=== PATIENT | male | born 1965 | race Caucasian/White ===

== ENCOUNTER 2017-04-25 21:13 | Inpatient (IN) | payer MEDICAID ==
[2017-04-25] MEDS ORDERED: HYDROmorphone 1 MG/ML Syringe IVPUSH ONE (21:58)
[2017-04-25] MEDS ORDERED: Sodium Chloride 0.9% 10 ML Syringe FLUSH PRN (21:58)
[2017-04-25] MEDS ORDERED: Ondansetron 4 MG/2 ML SDV IVPUSH ONE (21:58)
[2017-04-25] MEDS ORDERED: Lactated Ringers 1,000 ML IV SCH (22:00)
--- NOTE | 2017-04-25 22:02 | EDM.PDOC ---
ED HPI GENERAL MEDICAL PROBLEM - General Chief Complaint: Abdominal Pain Stated Complaint: ILLNESS FROM [facility] Time Seen by Provider: 04/25/17 21:42 Source of Information: Reports: Patient, RN Notes Reviewed History Limitations: Reports: No Limitations - History of Present Illness INITIAL COMMENTS - FREE TEXT/NARRATIVE: 52-year-old gentleman presents to emergency department day complaint of abdominal pain, he has a known history of pancreatitis recently underwent CAT scan the of this month which showed mild pancreatitis he has been trying to control his pain with ibuprofen and he is still eating, today the pain got significantly worse he is currently at [place] going through alcohol treatment program Lower Abdomen Pain Score (Numeric/FACES): 7 - Related Data Allergies Allergy/AdvReac Type Severity Reaction Status Date / Time No Known Allergies Allergy Verified 04/25/17 21:25 Home Meds: Home Meds Fluticasone Propionate [Flonase] 2 spray TOP DAILY 04/25/17 [History] Ibuprofen [Ibuprofen] 1 tab PO TID 04/25/17 [History] busPIRone HCl [Buspirone HCl] 1 tab PO BID 04/25/17 [History] Past Medical History HEENT History: Reports: Impaired Vision Gastrointestinal History: Reports: Other (See Below) Other Gastrointestinal History: pancreatitis Musculoskeletal History: Reports: Fracture Neurological History: Reports: Neuropathy, Peripheral Psychiatric History: Reports: Addiction - Infectious Disease History Infectious Disease History: Reports: Chicken Pox Social & Family History - Tobacco Use Used Tobacco, but Quit: No Tobacco Use Comment: Chew Second Hand Smoke Exposure: No - Caffeine Use Caffeine Use: Reports: Coffee, Soda, Tea - Alcohol Use Days Per Week of Alcohol Use: 7 Number of Drinks Per Day: 8 Total Drinks Per Week: 56 Date of Last Drink: 03/29/17 Time of Last Drink: 20:00 - Recreational Drug Use Recreational Drug Use: No ED ROS GENERAL - Review of Systems Review Of Systems: See Below Constitutional: Denies: Fever, Chills HEENT: Reports: No Symptoms Respiratory: Reports: Shortness of Breath Cardiovascular: Reports: No Symptoms GI/Abdominal: Reports: Abdominal Pain, Flatus, Nausea. Denies: Vomiting : Reports: No Symptoms Musculoskeletal: Reports: Arm Pain Skin: Reports: No Symptoms Neurological: Reports: No Symptoms ED EXAM, GI/ABD - Physical Exam Exam: See Below Exam Limited By: No Limitations General Appearance: Alert, Moderate Distress Neck: Normal Inspection, Supple, Non-Tender, Full Range of Motion Respiratory/Chest: No Respiratory Distress, Lungs Clear, Normal Breath Sounds, No Accessory Muscle Use Cardiovascular: Regular Rate, Rhythm, No Murmur GI/Abdominal Exam: Soft, Tender (Left upper quadrant) Back Exam: Normal Inspection, Full Range of Motion. No: CVA Tenderness (R), CVA Tenderness (L) Extremities: Normal Inspection Course - Vital Signs Last Recorded V/S: Last Vital Signs Temp 98.3 F 04/25/17 21:24 Pulse 97 04/25/17 21:24 Resp 20 04/25/17 21:24 BP 148/99 H 04/25/17 21:24 Pulse Ox 98 04/25/17 21:24 - Orders/Labs/Meds Orders: Active Orders 24 hr Category Date Time Status Peripheral IV Care [RC] . DIRECTED Care 04/25/17 21:58 Active UA W/MICROSCOPIC [URIN] Urgent Lab 04/25/17 21:58 Uncollected Lactated Ringers [Ringers, Lactated] 1,000 ml Med 04/25/17 22:00 Active IV ASDIRECTED Sodium Chloride 0.9% [Saline Flush] Med 04/25/17 21:58 Active 10 ml FLUSH ASDIRECTED PRN ED Antiemetic Medication Reflex [OM.PC] Click to Edit Oth 04/25/17 21:58 Ordered ED Pain Medications Reflex [OM.PC] Click to Edit Oth 04/25/17 21:58 Ordered Peripheral IV Insertion Adult [OM.PC] Urgent Oth 04/25/17 21:58 Ordered Medication Orders Lactated Ringer's (Ringers, Lactated) 1,000 mls @ 999 mls/hr IV ASDIRECTED [facility] Last Admin: 04/25/17 22:18 Dose: 999 mls/hr Sodium Chloride (Saline Flush) 10 ml FLUSH ASDIRECTED PRN PRN Reason: Keep Vein Open Labs: Laboratory Tests 04/25/17 04/25/17 04/25/17 Range/Units 22:09 22:09 22:09 WBC 6.5 (4.5-11.0) K/uL RBC 3.66 L (4.30-5.90) M/uL Hgb 12.0 (12.0-15.0) g/dL Hct 35.8 L (40.0-54.0) % MCV 98 (80-98) fL MCH 33 H (27-31) pg MCHC 34 (32-36) % Plt Count 297 (150-400) K/uL Neut % (Auto) 52 (36-66) % Lymph % (Auto) 27 (24-44) % [place] % (Auto) 14 H (2-6) % Eos % (Auto) 6 H (2-4) % Baso % (Auto) 0 (0-1) % Sodium 142 (140-148) mmol/L Potassium 3.7 (3.6-5.2) mmol/L Chloride 107 (100-108) mmol/L Carbon Dioxide 27 (21-32) mmol/L Anion Gap 8.3 (5.0-14.0) mmol/L BUN 11 (7-18) mg/dL Creatinine 0.8 (0.8-1.3) mg/dL Est Cr Clr Drug Dosing 108.36 mL/min Estimated GFR (MDRD) > 60 (>60) Glucose 100 (74-106) mg/dL Lactic Acid 0.9 (0.4-2.0) mmol/L Calcium 9.0 (8.5-10.1) mg/dL Total Bilirubin 0.2 (0.2-1.0) mg/dL AST 13 L (15-37) U/L ALT 23 (12-78) U/L Alkaline Phosphatase 65 (46-116) U/L Troponin I < 0.017 (0.000-0.056) ng/mL Total Protein 6.9 (6.4-8.2) g/dL Albumin 3.6 (3.4-5.0) g/dL Globulin 3.3 (2.3-3.5) g/dL Albumin/Globulin Ratio 1.1 L (1.2-2.2) Lipase 443 H (73-393) U/L Meds: Medications Generic Name Dose Route Start Last Admin Trade Name Freq PRN Reason Stop Dose Admin Lactated Ringer's 1,000 mls @ 999 mls/hr 04/25/17 22:00 04/25/17 22:18 Ringers, Lactated IV 999 mls/hr ASDIRECTED RAFAT Administration Sodium Chloride 10 ml 04/25/17 21:58 Saline Flush FLUSH ASDIRECTED PRN Keep Vein Open Discontinued Medications Generic Name Dose Route Start Last Admin Trade Name Davian PRN Reason Stop Dose Admin Fentanyl 100 mcg 04/25/17 22:51 Sublimaze IVPUSH 04/25/17 22:52 ONETIME ONE Hydromorphone HCl 1 mg 04/25/17 21:58 04/25/17 22:21 Dilaudid IVPUSH 04/25/17 21:59 1 mg .ONETIME ONE Administration Ondansetron HCl 4 mg 04/25/17 21:58 04/25/17 22:19 Zofran IVPUSH 04/25/17 21:59 4 mg ONETIME ONE Administration Departure - Departure Time of Disposition: 23:09 Disposition: Admitted As Inpatient 64 Condition: Fair Clinical Impression: Pancreatitis Qualifiers: Chronicity: acute Pancreatitis type: alcohol induced Acute pancreatitis complication: no infection or necrosis Qualified Code(s): K85.20 - Alcohol induced acute pancreatitis without necrosis or infection - Discharge Information Referrals: PCP,None [Primary Care Provider] - Forms: ED Department Discharge - My Orders Last 24 Hours: My Active Orders 04/25/17 21:58 Peripheral IV Care [RC] . DIRECTED UA W/MICROSCOPIC [URIN] Urgent Sodium Chloride 0.9% [Saline Flush] 10 ml FLUSH ASDIRECTED PRN ED Antiemetic Medication Reflex [OM.PC] Click to Edit ED Pain Medications Reflex [OM.PC] Click to Edit Peripheral IV Insertion Adult [OM.PC] Urgent 04/25/17 22:00 Lactated Ringers [Ringers, Lactated] 1,000 ml IV ASDIRECTED - Assessment/Plan Last 24 Hours: My Active Orders 04/25/17 21:58 Peripheral IV Care [RC] . DIRECTED UA W/MICROSCOPIC [URIN] Urgent Sodium Chloride 0.9% [Saline Flush] 10 ml FLUSH ASDIRECTED PRN ED Antiemetic Medication Reflex [OM.PC] Click to Edit ED Pain Medications Reflex [OM.PC] Click to Edit Peripheral IV Insertion Adult [OM.PC] Urgent 04/25/17 22:00 Lactated Ringers [Ringers, Lactated] 1,000 ml IV ASDIRECTED Plan: Assessment Acuity = acute Site and laterality = pancreatitis complicated patient with known history of alcohol abuse and dependence Etiology = probably related to alcohol Manifestations = abdominal pain, nausea Location of injury = Home Lab values = CBC, CMP unremarkable lipase mildly elevated at 443 CT scan from the of this month shows mild pancreatitis Plan Called discussed case Dr. Etsrella he agreed to come and evaluate the patient in the hospital, plan for admission pain control fluids nothing by mouth Patient was in agreement with the plan all questions were answered, they were instructed to return to the emergency department or call for worsening symptoms. This note was dictated using [employer] voice recognition software please call with any questions.
[2017-04-25] MEDS ORDERED: fentaNYL 100 MCG/2 ML SDV IVPUSH ONE (22:51)
[2017-04-25] MEDS ORDERED: HYDROmorphone/Normal Saline 15 MG/30 ML PCA IV SCH (23:30)
[2017-04-25] MEDS: Lactated Ringers 500 ML IV SCH (23:51)
[2017-04-26] MEDS: LORazepam 2 MG/ML MDV IV PRN ×2 (03:03→23:24)
[2017-04-26] MEDS: Lactated Ringers 500 ML IV SCH (06:16)
[2017-04-26] MEDS ORDERED: Naloxone 0.4 MG/ML SDV IV PRN (07:02)
[2017-04-26] MEDS ORDERED: Fluticasone Propionate Nasal Spray 16 GM Bottle NAS SCH (09:00)
--- NOTE | 2017-04-26 09:14 | PCM.HP ---
H&P History of Present Illness - General Date of Service: 04/25/17 Admit Problem/Dx: Admission Diagnosis/Problem Admission Diagnosis/Problem Pancreatitis Source of Information: Patient, EMS History Limitations: Reports: No Limitations - History of Present Illness Worsens with: Reports: Eating Associated Symptoms: Reports: Nausea/Vomiting Lower Abdomen Pain Score (Numeric/FACES): 7 - Related Data Allergies/Adverse Reactions: Allergies Allergy/AdvReac Type Severity Reaction Status Date / Time No Known Allergies Allergy Verified 04/25/17 21:25 Home Medications: Home Meds Fluticasone Propionate [Flonase] 2 spray TOP DAILY 04/25/17 [History] Ibuprofen [Ibuprofen] 1 tab PO TID 04/25/17 [History] busPIRone HCl [Buspirone HCl] 1 tab PO BID 04/25/17 [History] Past Medical History HEENT History: Reports: Impaired Vision Gastrointestinal History: Reports: Other (See Below) Other Gastrointestinal History: pancreatitis Musculoskeletal History: Reports: Fracture Neurological History: Reports: Neuropathy, Peripheral Psychiatric History: Reports: Addiction - Infectious Disease History Infectious Disease History: Reports: Chicken Pox - Past Surgical History Musculoskeletal Surgical History: Reports: Arthroscopic Knee Social & Family History - Family History Family Medical History: Noncontributory - Tobacco Use Used Tobacco, but Quit: No Tobacco Use Comment: Chew Second Hand Smoke Exposure: No - Caffeine Use Caffeine Use: Reports: None - Alcohol Use Days Per Week of Alcohol Use: 7 Number of Drinks Per Day: 8 Total Drinks Per Week: 56 Date of Last Drink: 03/28/17 Time of Last Drink: 20:00 - Recreational Drug Use Recreational Drug Use: No H&P Review of Systems - Review of Systems: Review Of Systems: See Below General: Reports: Weakness HEENT: Reports: No Symptoms Pulmonary: Reports: No Symptoms Cardiovascular: Reports: No Symptoms Gastrointestinal: Reports: Abdominal Pain, Flatus Genitourinary: Reports: No Symptoms Musculoskeletal: Reports: No Symptoms Skin: Reports: No Symptoms Psychiatric: Reports: No Symptoms Neurological: Reports: No Symptoms Exam - Exam Exam: See Below - Vital Signs Vital Signs: Last Vital Signs Temp 97.6 F 04/26/17 08:00 Pulse 72 04/26/17 08:00 Resp 18 04/26/17 08:00 BP 134/90 04/26/17 08:00 Pulse Ox 97 04/26/17 04:00 Weight: 159 lb 11.2 oz - Exam General: Alert, Oriented, 4 HEENT: PERRLA, Hearing Intact, Mucosa Moist & [place], Nares Patent, Normal Nasal Septum, Posterior Pharynx Clear, Conjunctiva Clear, EOMI, EACs Clear, TMs Clear Neck: Supple, Trachea Midline, 2 Lungs: Clear to Auscultation, Normal Respiratory Effort Cardiovascular: Regular Rate, Regular Rhythm GI/Abdominal Exam: Guarding, Tender Extremities: Normal Inspection, Normal Range of Motion, Non-Tender, No Pedal Edema, Normal Capillary Refill Peripheral Pulses: 1+: Radial (L), Radial (R) Skin: Warm Neurological: Cranial Nerves Intact, Reflexes Equal Bilateral Neuro Extensive - Motor, Sensory, Reflexes: CN II-XII Intact, Normal Gait, Normal Reflexes DTR: 1+: Bicep (L), Bicep (R) Psychiatric: Alert, Normal Affect, Normal Mood - Patient Data Lab Results Last 24 hrs: Laboratory Results - last 24 hr 04/25/17 04/26/17 04/26/17 Range/Units 23:20 05:11 05:11 WBC 6.6 (4.5-11.0) K/uL RBC 3.24 L (4.30-5.90) M/uL Hgb 10.8 L (12.0-15.0) g/dL Hct 32.1 L (40.0-54.0) % MCV 99 H (80-98) fL MCH 33 H (27-31) pg MCHC 34 (32-36) % Plt Count 267 (150-400) K/uL Neut % (Auto) 46 (36-66) % Lymph % (Auto) 28 (24-44) % [place] % (Auto) 15 H (2-6) % Eos % (Auto) 11 H (2-4) % Baso % (Auto) 0 (0-1) % Sodium 144 (140-148) mmol/L Potassium 3.7 (3.6-5.2) mmol/L Chloride 107 (100-108) mmol/L Carbon Dioxide 28 (21-32) mmol/L Anion Gap 9.1 (5.0-14.0) mmol/L BUN 9 (7-18) mg/dL Creatinine 0.7 L (0.8-1.3) mg/dL Est Cr Clr Drug Dosing 123.61 mL/min Estimated GFR (MDRD) > 60 (>60) Glucose 98 (74-106) mg/dL Calcium 8.5 (8.5-10.1) mg/dL Total Bilirubin 0.3 (0.2-1.0) mg/dL AST 14 L (15-37) U/L ALT 22 (12-78) U/L Alkaline Phosphatase 50 (46-116) U/L Total Protein 6.0 L (6.4-8.2) g/dL Albumin 3.1 L (3.4-5.0) g/dL Globulin 2.9 (2.3-3.5) g/dL Albumin/Globulin Ratio 1.1 L (1.2-2.2) Lipase 405 H (73-393) U/L Urine Color Yellow Urine Appearance Clear Urine pH 6.5 (4.5-8.0) Ur Specific [place] 1.010 (1.008-1.030) Urine Protein Negative (NEGATIVE) mg/dL Urine Glucose (UA) Normal (NEGATIVE) mg/dL Urine Ketones Negative (NEGATIVE) mg/dL Urine Occult Blood Negative (NEGATIVE) Urine Nitrite Negative (NEGAITVE) Urine Bilirubin Negative (NEGATIVE) Urine Urobilinogen Normal (NORMAL) mg/dL Ur Leukocyte Esterase Negative (NEGATIVE) Urine RBC Not seen (0-5) Urine WBC Not seen (0-5) Ur Epithelial Cells Not seen Amorphous Sediment Not seen Urine Bacteria Not seen Urine Mucus Rare Result Diagrams: 04/26/17 05:11 04/26/17 05:11 *Q Meaningful Use (ADM) - VTE *Q VTE Criteria *Q: - Stroke *Q Stroke Criteria *Q: - AMI *Q AMI Criteria *Q: Problem List Initiated/Reviewed/Updated: Yes Orders Last 24hrs: Active Orders 24 hr Category Date Time Status Fluticasone Propionate [Flonase] Med 04/26/17 09:00 Active 0 gm NASBOTH DAILY HYDROmorphone/Normal Saline [Dilaudid FISH HATCHERY SUPERINTENDENT 15 MG in NS Med 04/26/17 07:01 Active 30 ML] 0 mg IV ASDIRECTED PRN Naloxone [Narcan] Med 04/26/17 07:02 Active 0.1 mg IV ASDIRECTED PRN busPIRone [Buspar] Med 04/26/17 09:00 Active 15 mg PO BID Medication Orders Buspirone HCl (Buspar) 15 mg PO BID RAFAT Fluticasone Propionate (Flonase) 0 gm NASBOTH DAILY RAFAT Hydromorphone HCl (Dilaudid Sales And Merchandising Associate 15 Mg In Ns 30 Ml) 0 mg IV ASDIRECTED PRN; Protocol PRN Reason: Pain Lorazepam (Ativan) 1 mg IV Q6H PRN PRN Reason: Nausea/Vomiting Last Admin: 04/26/17 03:03 Dose: 1 mg Naloxone HCl (Narcan) 0.1 mg IV ASDIRECTED PRN PRN Reason: decreased respiratory rate Sodium Chloride (Saline Flush) 10 ml FLUSH ASDIRECTED PRN PRN Reason: Keep Vein Open Assessment/Plan Comment:: ASSESSMENT/PLAN: #1. Pancreatitis secondary to alcohol consumption. He had a CT of the abd after I had seen him in the office which showed pancreatitis #2. Alcoholism: He is in treatment court ordered. #3. Peripheral neuritis. Will continue with Lyrica. #4. Anxiety: Continue with Buspar.
--- NOTE | 2017-04-26 09:14 | PCM.PN ---
- General Info Date of Service: 04/26/17 Subjective Update: He continues to havae abd pain with minimual improvement from last night. His pain level is a 7/10 dull in character. - Review of Systems General: Reports: Weakness HEENT: Reports: No Symptoms Pulmonary: Reports: No Symptoms Cardiovascular: Reports: No Symptoms Gastrointestinal: Reports: Abdominal Pain, Nausea Genitourinary: Reports: No Symptoms Musculoskeletal: Reports: No Symptoms Neurological: Reports: No Symptoms Psychiatric: Reports: No Symptoms - Patient Data Vitals - Most Recent: Last Vital Signs Temp 97.6 F 04/26/17 08:00 Pulse 72 04/26/17 08:00 Resp 18 04/26/17 08:00 BP 134/90 04/26/17 08:00 Pulse Ox 97 04/26/17 04:00 Weight - Most Recent: 159 lb 11.2 oz I&O - Last 24 Hours: Intake & Output 04/25/17 04/26/17 04/26/17 22:59 06:59 14:59 Intake Total 977 Balance 977 Lab Results Last 24 Hours: Laboratory Results - last 24 hr 04/25/17 04/26/17 04/26/17 Range/Units 23:20 05:11 05:11 WBC 6.6 (4.5-11.0) K/uL RBC 3.24 L (4.30-5.90) M/uL Hgb 10.8 L (12.0-15.0) g/dL Hct 32.1 L (40.0-54.0) % MCV 99 H (80-98) fL MCH 33 H (27-31) pg MCHC 34 (32-36) % Plt Count 267 (150-400) K/uL Neut % (Auto) 46 (36-66) % Lymph % (Auto) 28 (24-44) % [place] % (Auto) 15 H (2-6) % Eos % (Auto) 11 H (2-4) % Baso % (Auto) 0 (0-1) % Sodium 144 (140-148) mmol/L Potassium 3.7 (3.6-5.2) mmol/L Chloride 107 (100-108) mmol/L Carbon Dioxide 28 (21-32) mmol/L Anion Gap 9.1 (5.0-14.0) mmol/L BUN 9 (7-18) mg/dL Creatinine 0.7 L (0.8-1.3) mg/dL Est Cr Clr Drug Dosing 123.61 mL/min Estimated GFR (MDRD) > 60 (>60) Glucose 98 (74-106) mg/dL Calcium 8.5 (8.5-10.1) mg/dL Total Bilirubin 0.3 (0.2-1.0) mg/dL AST 14 L (15-37) U/L ALT 22 (12-78) U/L Alkaline Phosphatase 50 (46-116) U/L Total Protein 6.0 L (6.4-8.2) g/dL Albumin 3.1 L (3.4-5.0) g/dL Globulin 2.9 (2.3-3.5) g/dL Albumin/Globulin Ratio 1.1 L (1.2-2.2) Lipase 405 H (73-393) U/L Urine Color Yellow Urine Appearance Clear Urine pH 6.5 (4.5-8.0) Ur Specific [place] 1.010 (1.008-1.030) Urine Protein Negative (NEGATIVE) mg/dL Urine Glucose (UA) Normal (NEGATIVE) mg/dL Urine Ketones Negative (NEGATIVE) mg/dL Urine Occult Blood Negative (NEGATIVE) Urine Nitrite Negative (NEGAITVE) Urine Bilirubin Negative (NEGATIVE) Urine Urobilinogen Normal (NORMAL) mg/dL Ur Leukocyte Esterase Negative (NEGATIVE) Urine RBC Not seen (0-5) Urine WBC Not seen (0-5) Ur Epithelial Cells Not seen Amorphous Sediment Not seen Urine Bacteria Not seen Urine Mucus Rare Med Orders - Current: Current Medications Buspirone HCl (Buspar) 15 mg PO BID RAFAT Fluticasone Propionate (Flonase) 0 gm NASBOTH DAILY RAFAT Hydromorphone HCl (Dilaudid Oil Furnace Installer 15 Mg In Ns 30 Ml) 0 mg IV ASDIRECTED PRN; Protocol PRN Reason: Pain Lorazepam (Ativan) 1 mg IV Q6H PRN PRN Reason: Nausea/Vomiting Last Admin: 04/26/17 03:03 Dose: 1 mg Naloxone HCl (Narcan) 0.1 mg IV ASDIRECTED PRN PRN Reason: decreased respiratory rate Sodium Chloride (Saline Flush) 10 ml FLUSH ASDIRECTED PRN PRN Reason: Keep Vein Open Discontinued Medications Fentanyl (Sublimaze) 100 mcg IVPUSH ONETIME ONE Stop: 04/25/17 22:52 Last Admin: 04/25/17 23:12 Dose: 100 mcg Hydromorphone HCl (Dilaudid) 1 mg IVPUSH .ONETIME ONE Stop: 04/25/17 21:59 Last Admin: 04/25/17 22:21 Dose: 1 mg Hydromorphone HCl (Dilaudid Oil Furnace Installer 15 Mg In Ns 30 Ml) 15 mg IV ASDIRECTED [facility] PRN Reason: Protocol Last Admin: 04/25/17 23:55 Dose: 15 mg Lactated Ringer's (Ringers, Lactated) 1,000 mls @ 999 mls/hr IV ASDIRECTED [facility] Last Admin: 04/25/17 22:18 Dose: 999 mls/hr Lactated Ringer's (Ringers, Lactated) 500 mls @ 150 mls/hr IV .BOLUS [facility] Last Admin: 04/26/17 06:16 Dose: 150 mls/hr Ondansetron HCl (Zofran) 4 mg IVPUSH ONETIME ONE Stop: 04/25/17 21:59 Last Admin: 04/25/17 22:19 Dose: 4 mg - Exam General: Alert, Oriented Neck: Supple Lungs: Clear to Auscultation, Normal Respiratory Effort Cardiovascular: Regular Rate, Regular Rhythm Back Exam: Normal Inspection, Full Range of Motion Extremities: Normal Inspection, Normal Range of Motion, Non-Tender, No Pedal Edema, Normal Capillary Refill Skin: Warm, Dry, Intact Psy/Mental Status: Alert, Normal Mood - Problem List Review Problem List Initiated/Reviewed/Updated: Yes - Plan Plan:: Assessment/plan: Pancreatitis Will continue with NPO. Will repeat the Lipase in 2 days as pain is continuing. #2. Neuritis: Have restarted Lyrica
[2017-04-26] MEDS: busPIRone 5 MG Tab PO SCH ×2 (09:38→20:13)
[2017-04-26] MEDS: Fluticasone Propionate Nasal Spray 16 GM Bottle NASBOTH SCH (09:39)
[2017-04-26] MEDS: Pregabalin 75 MG Cap PO SCH ×2 (09:42→20:13)
[2017-04-26] MEDS: Acetaminophen 325 MG Tab PO PRN (20:13)
[2017-04-26] MEDS: Ibuprofen 800 MG Tab PO PRN (23:24)
[2017-04-26] MEDS: Sodium Chloride 0.9% 1,000 ML IV SCH (23:32)
[2017-04-27] MEDS: Acetaminophen 325 MG Tab PO PRN ×3 (06:19→20:08)
--- NOTE | 2017-04-27 07:27 | PCM.PN ---
- General Info Date of Service: 04/27/17 Functional Status: Reports: Pain Controlled - Review of Systems General: Reports: No Symptoms HEENT: Reports: No Symptoms Pulmonary: Reports: No Symptoms Cardiovascular: Reports: No Symptoms Gastrointestinal: Reports: Abdominal Pain Genitourinary: Reports: No Symptoms Musculoskeletal: Reports: No Symptoms Neurological: Reports: No Symptoms Psychiatric: Reports: No Symptoms - Patient Data Vitals - Most Recent: Last Vital Signs Temp 97.5 F 04/26/17 23:00 Pulse 80 04/26/17 23:00 Resp 14 04/26/17 23:00 BP 102/80 04/26/17 23:00 Pulse Ox 95 04/26/17 23:00 Weight - Most Recent: 159 lb 11.2 oz I&O - Last 24 Hours: Intake & Output 04/26/17 04/27/17 04/27/17 22:59 06:59 14:59 Intake Total 1056 859 Balance 1056 859 Med Orders - Current: Current Medications Acetaminophen (Tylenol) 650 mg PO Q6H PRN PRN Reason: Pain Last Admin: 04/27/17 06:19 Dose: 650 mg Buspirone HCl (Buspar) 15 mg PO BID [facility] Last Admin: 04/26/17 20:13 Dose: 15 mg Fluticasone Propionate (Flonase) 0 gm NASBOTH DAILY [facility] Last Admin: 04/26/17 09:39 Dose: 2 spray Hydromorphone HCl (Dilaudid Pipe Testing Technician 15 Mg In Ns 30 Ml) 0 mg IV ASDIRECTED PRN; Protocol PRN Reason: Pain Sodium Chloride (Normal Saline) 1,000 mls @ 75 mls/hr IV ASDIRECTED [facility] Last Admin: 04/26/17 23:32 Dose: 75 mls/hr Ibuprofen (Motrin) 800 mg PO Q8H PRN PRN Reason: Pain Last Admin: 04/26/17 23:24 Dose: 800 mg Lorazepam (Ativan) 1 mg IV Q6H PRN PRN Reason: Nausea/Vomiting Last Admin: 04/26/17 23:24 Dose: 1 mg Naloxone HCl (Narcan) 0.1 mg IV ASDIRECTED PRN PRN Reason: decreased respiratory rate Pregabalin (Lyrica) 75 mg PO BID [facility] Last Admin: 04/26/17 20:13 Dose: 75 mg Sodium Chloride (Saline Flush) 10 ml FLUSH ASDIRECTED PRN PRN Reason: Keep Vein Open Discontinued Medications Fentanyl (Sublimaze) 100 mcg IVPUSH ONETIME ONE Stop: 04/25/17 22:52 Last Admin: 04/25/17 23:12 Dose: 100 mcg Hydromorphone HCl (Dilaudid) 1 mg IVPUSH .ONETIME ONE Stop: 04/25/17 21:59 Last Admin: 04/25/17 22:21 Dose: 1 mg Hydromorphone HCl (Dilaudid Pipe Testing Technician 15 Mg In Ns 30 Ml) 15 mg IV ASDIRECTED RAFAT PRN Reason: Protocol Last Admin: 04/25/17 23:55 Dose: 15 mg Lactated Ringer's (Ringers, Lactated) 1,000 mls @ 999 mls/hr IV ASDIRECTED [facility] Last Admin: 04/25/17 22:18 Dose: 999 mls/hr Lactated Ringer's (Ringers, Lactated) 500 mls @ 150 mls/hr IV .BOLUS [facility] Last Admin: 04/26/17 06:16 Dose: 150 mls/hr Ondansetron HCl (Zofran) 4 mg IVPUSH ONETIME ONE Stop: 04/25/17 21:59 Last Admin: 04/25/17 22:19 Dose: 4 mg - Exam General: Alert, Oriented HEENT: Pupils Equal Neck: Supple Lungs: Clear to Auscultation, Normal Respiratory Effort Cardiovascular: Regular Rate, Regular Rhythm GI/Abdominal Exam: Guarding, Tender Extremities: Normal Inspection, Normal Range of Motion, Non-Tender, No Pedal Edema, Normal Capillary Refill Peripheral Pulses: 1+: Radial (L), Radial (R) Skin: Warm, Dry, Intact Psy/Mental Status: Alert, Normal Affect, Normal Mood - Problem List Review Problem List Initiated/Reviewed/Updated: Yes - My Orders Last 24 Hours: My Active Orders 04/26/17 09:30 Pregabalin [Lyrica] 75 mg PO BID 04/26/17 19:46 Acetaminophen [Tylenol] 650 mg PO Q6H PRN Ibuprofen [Motrin] 800 mg PO Q8H PRN 04/26/17 20:00 Sodium Chloride 0.9% [Normal Saline] 1,000 ml IV ASDIRECTED - Plan Plan:: ASSESSMENT/PLAN: #1. Pancreatitis secondary to alcohol consumption. Will continue with NPO as he continues to have abd pain. #2. Alcoholism: He is in treatment court ordered. #3. Peripheral neuritis. Will continue with Lyrica. #4. Anxiety: Continue with Buspar.
[2017-04-27] MEDS: busPIRone 5 MG Tab PO SCH ×2 (08:20→20:08)
[2017-04-27] MEDS: Fluticasone Propionate Nasal Spray 16 GM Bottle NASBOTH SCH (08:20)
[2017-04-27] MEDS: Pregabalin 75 MG Cap PO SCH ×2 (10:19→20:08)
[2017-04-27] MEDS: Sodium Chloride 0.9% 1,000 ML IV SCH (13:07)
[2017-04-27] MEDS: Ibuprofen 800 MG Tab PO PRN (14:35)
[2017-04-27] MEDS: LORazepam 2 MG/ML MDV IV PRN (18:25)
[2017-04-27] MEDS: HYDROmorphone/Normal Saline 15 MG/30 ML PCA IV PRN (18:56)
[2017-04-28] MEDS: Sodium Chloride 0.9% 1,000 ML IV SCH ×2 (02:12→18:00)
[2017-04-28] MEDS: Acetaminophen 325 MG Tab PO PRN ×2 (04:57→18:57)
[2017-04-28] MEDS: Ibuprofen 800 MG Tab PO PRN ×3 (06:09→22:01)
[2017-04-28] MEDS: busPIRone 5 MG Tab PO SCH ×2 (09:38→21:54)
[2017-04-28] MEDS: Pregabalin 75 MG Cap PO SCH ×2 (09:39→22:00)
[2017-04-28] MEDS: Fluticasone Propionate Nasal Spray 16 GM Bottle NASBOTH SCH (09:39)
[2017-04-28] MEDS ORDERED: Bupivacaine 0.25% 10 ML SDV ONE (10:08)
[2017-04-28] MEDS ORDERED: methylPREDNISolone Acetate 80 MG/ML SDV ONE (10:08)
--- NOTE | 2017-04-28 17:19 | PCM.PN ---
- General Info Date of Service: 04/28/17 Admission Dx/Problem (Free Text): Admission Diagnosis/Problem Admission Diagnosis/Problem Pancreatitis Subjective Update: Back pain is progressive and wants relief. The abd. pain is also significant His pain in his back is a 8/10 and dull worse with movement. He wants to start eating al least try to eat. - Review of Systems General: Reports: Weakness Pulmonary: Reports: No Symptoms Cardiovascular: Reports: No Symptoms Gastrointestinal: Reports: Abdominal Pain Genitourinary: Reports: No Symptoms Musculoskeletal: Reports: Back Pain Skin: Reports: No Symptoms Psychiatric: Reports: No Symptoms - Patient Data Vitals - Most Recent: Last Vital Signs Temp 97.1 F 04/28/17 15:00 Pulse 80 04/28/17 15:00 Resp 18 04/28/17 15:00 BP 139/99 H 04/28/17 15:00 Pulse Ox 99 04/28/17 15:00 Weight - Most Recent: 159 lb 11.2 oz I&O - Last 24 Hours: Intake & Output 04/28/17 04/28/17 04/28/17 06:59 14:59 22:59 Intake Total 816 Balance 816 Lab Results Last 24 Hours: Laboratory Results - last 24 hr 04/28/17 04/28/17 04/28/17 Range/Units 05:54 05:54 15:41 WBC 5.7 (4.5-11.0) K/uL RBC 3.79 L (4.30-5.90) M/uL Hgb 12.4 (12.0-15.0) g/dL Hct 37.7 L (40.0-54.0) % MCV 100 H (80-98) fL MCH 33 H (27-31) pg MCHC 33 (32-36) % Plt Count 299 (150-400) K/uL Neut % (Auto) 48 (36-66) % Lymph % (Auto) 30 (24-44) % [place] % (Auto) 14 H (2-6) % Eos % (Auto) 7 H (2-4) % Baso % (Auto) 0 (0-1) % Sodium 142 (140-148) mmol/L Potassium 3.8 (3.6-5.2) mmol/L Chloride 104 (100-108) mmol/L Carbon Dioxide 29 (21-32) mmol/L Anion Gap 8.6 (5.0-14.0) mmol/L BUN 7 (7-18) mg/dL Creatinine 0.7 L (0.8-1.3) mg/dL Est Cr Clr Drug Dosing 123.61 mL/min Estimated GFR (MDRD) > 60 (>60) Glucose 92 (74-106) mg/dL Calcium 9.2 (8.5-10.1) mg/dL Amylase 89 (25-115) U/L Lipase 122 158 (73-393) U/L Med Orders - Current: Current Medications Acetaminophen (Tylenol) 650 mg PO Q6H PRN PRN Reason: Pain Last Admin: 04/28/17 04:57 Dose: 650 mg Buspirone HCl (Buspar) 15 mg PO BID [facility] Last Admin: 04/28/17 09:38 Dose: 15 mg Fluticasone Propionate (Flonase) 0 gm NASBOTH DAILY [facility] Last Admin: 04/28/17 09:39 Dose: 2 spray Hydromorphone HCl (Dilaudid General Service Technician 15 Mg In Ns 30 Ml) 0 mg IV ASDIRECTED PRN; Protocol PRN Reason: Pain Last Admin: 04/27/17 18:56 Dose: 15 mg Sodium Chloride (Normal Saline) 1,000 mls @ 75 mls/hr IV ASDIRECTED [facility] Last Admin: 04/28/17 02:12 Dose: 75 mls/hr Ibuprofen (Motrin) 800 mg PO Q8H PRN PRN Reason: Pain Last Admin: 04/28/17 12:20 Dose: 800 mg Lorazepam (Ativan) 1 mg IV Q6H PRN PRN Reason: Nausea/Vomiting Last Admin: 04/27/17 18:25 Dose: 1 mg Magnesium Citrate (Citrate Of Magnesia) 296 ml PO ONETIME ONE Stop: 04/28/17 17:31 Naloxone HCl (Narcan) 0.1 mg IV ASDIRECTED PRN PRN Reason: decreased respiratory rate Pregabalin (Lyrica) 150 mg PO BID [facility] Last Admin: 04/28/17 09:39 Dose: 150 mg Sodium Chloride (Saline Flush) 10 ml FLUSH ASDIRECTED PRN PRN Reason: Keep Vein Open Discontinued Medications Bupivacaine HCl (Sensorcaine-Mpf 0.25%) Confirm Administered Dose 10 ml .ROUTE .STK-MED ONE Stop: 04/28/17 10:09 Fentanyl (Sublimaze) 100 mcg IVPUSH ONETIME ONE Stop: 04/25/17 22:52 Last Admin: 04/25/17 23:12 Dose: 100 mcg Hydromorphone HCl (Dilaudid) 1 mg IVPUSH .ONETIME ONE Stop: 04/25/17 21:59 Last Admin: 04/25/17 22:21 Dose: 1 mg Hydromorphone HCl (Dilaudid General Service Technician 15 Mg In Ns 30 Ml) 15 mg IV ASDIRECTED [facility] PRN Reason: Protocol Last Admin: 04/25/17 23:55 Dose: 15 mg Lactated Ringer's (Ringers, Lactated) 1,000 mls @ 999 mls/hr IV ASDIRECTED [facility] Last Admin: 04/25/17 22:18 Dose: 999 mls/hr Lactated Ringer's (Ringers, Lactated) 500 mls @ 150 mls/hr IV .BOLUS [facility] Last Admin: 04/26/17 06:16 Dose: 150 mls/hr Methylprednisolone Acetate (Depo-Medrol) Confirm Administered Dose 80 mg .ROUTE .STK-MED ONE Stop: 04/28/17 10:09 Ondansetron HCl (Zofran) 4 mg IVPUSH ONETIME ONE Stop: 04/25/17 21:59 Last Admin: 04/25/17 22:19 Dose: 4 mg Pregabalin (Lyrica) 75 mg PO BID [facility] Last Admin: 04/27/17 10:19 Dose: 75 mg - Exam General: Alert, Oriented HEENT: Pupils Equal, Pupils Reactive, EOMI, Mucous Membr. Moist/[place] Neck: Supple Lungs: Clear to Auscultation, Normal Respiratory Effort Cardiovascular: Regular Rate, Regular Rhythm GI/Abdominal Exam: Guarding, Tender Back Exam: Paraspinal Tenderness, Vertebral Tenderness Extremities: Normal Inspection Peripheral Pulses: 1+: Radial (L), Radial (R) Skin: Warm, Dry, Intact - Problem List Review Problem List Initiated/Reviewed/Updated: Yes - My Orders Last 24 Hours: My Active Orders 04/27/17 21:00 Pregabalin [Lyrica] 150 mg PO BID 04/27/17 21:55 Communication Order [RC] STAT Notify Provider [RC] PRN MEDICAL PRACTITIONERS Record [RC] PER UNIT ROUTINE Pulse Oximetry [RC] CONTINUOUS Medication Discontinuation Instructions [OM.PC] Stat 04/28/17 16:56 Communication Order [RC] ROUTINE 04/28/17 17:30 Magnesium Citrate [Citrate of Magnesia] 296 ml PO ONETIME ONE 04/28/17 18:00 Communication Order [RC] ASDIRECTED 04/28/17 Dinner Full Liquid Diet [DIET] - Plan Plan:: Assessment/plan: Pancreatitis Give him clear liquids today and will advance to a full liquid diet. Lipase and amylase was normal. #2. Neuritis: Have restarted Lyrica #3. Low back pain. I ordered epidural injections that were done and did give him relief. He has not had any stools for 5 days will give him citrate of Mg and water.
[2017-04-28] MEDS ORDERED: Magnesium Citrate Solution 296 ML Bottle PO ONE (17:30)
[2017-04-29] MEDS: LORazepam 2 MG/ML MDV IV PRN (00:38)
[2017-04-29] MEDS: HYDROmorphone/Normal Saline 15 MG/30 ML PCA IV PRN (01:02)
--- NOTE | 2017-04-29 07:44 | ANES ---
DATE OF SERVICE: 04/28/2017 INDICATIONS: Mil is a 52-year-old male patient of Dr. Cliff Estrella. Please refer to Cliff's note for diagnosis, [facility] #[id number]. Mr. Ortega is here today with complaints of neuropathy pain in both legs. In discussing history, he has received epidural steroid injections 3 times in the recent past in [place], [place]. He is here today with definite increased pain, and we are requested by Dr. Cliff Estrella to assess him for epidural steroid injection. I found no contraindication to epidural steroid with labs, history, and per patient discussion. He was okay to proceed, after discussing risks and benefits of procedure and consent was received. DESCRIPTION OF THE PROCEDURE: I had him seated at the edge of the bed. Betadine prep x3 to lumbar region. Sterile drape was placed, 1% lidocaine skin wheal as well as deep at the L5- S1 region. A 17-gauge Tuohy was placed to loss of resistance. Negative CSF, negative heme, negative paresthesia. I injected a mixture of 7 mL sterile normal saline, 2 mL of 0.25% Sensorcaine, 1 mL with 80 mg Depo-Medrol. The needle was flushed and removed. The drape was removed. His back was washed and Band-Aid over the injection site. He tolerated the procedure quite well. Please refer to nurse's notes for vital signs and neuro status, and upon completion, after the appropriate amount of observation, he was reported off to the nurses on the Med/Surg floor. Dave Patel CRNA /[id number]
[2017-04-29] MEDS: Sodium Chloride 0.9% 1,000 ML IV SCH (08:03)
[2017-04-29] MEDS: Pregabalin 75 MG Cap PO SCH ×2 (08:10→20:22)
[2017-04-29] MEDS: busPIRone 5 MG Tab PO SCH ×2 (08:10→20:22)
[2017-04-29] MEDS: Fluticasone Propionate Nasal Spray 16 GM Bottle NASBOTH SCH (08:11)
[2017-04-29] MEDS: Ibuprofen 800 MG Tab PO PRN (20:22)
--- NOTE | 2017-04-29 20:39 | PCM.PN ---
- General Info Date of Service: 04/29/17 - Review of Systems General: Reports: Weakness HEENT: Reports: No Symptoms Pulmonary: Reports: No Symptoms Cardiovascular: Reports: No Symptoms Gastrointestinal: Reports: Abdominal Pain Genitourinary: Reports: No Symptoms Musculoskeletal: Reports: No Symptoms Skin: Reports: No Symptoms Neurological: Reports: No Symptoms Psychiatric: Reports: Anxiety - Patient Data Vitals - Most Recent: Last Vital Signs Temp 98.4 F 04/29/17 20:24 Pulse 75 04/29/17 20:24 Resp 18 04/29/17 20:24 BP 128/95 H 04/29/17 20:24 Pulse Ox 99 04/29/17 20:24 Weight - Most Recent: 159 lb 11.21 oz I&O - Last 24 Hours: Intake & Output 04/29/17 04/29/17 04/29/17 06:59 14:59 22:59 Intake Total 480 Balance 480 Med Orders - Current: Current Medications Acetaminophen (Tylenol) 650 mg PO Q6H PRN PRN Reason: Pain Last Admin: 04/28/17 18:57 Dose: 650 mg Buspirone HCl (Buspar) 15 mg PO BID [facility] Last Admin: 04/29/17 20:22 Dose: 15 mg Fluticasone Propionate (Flonase) 0 gm NASBOTH DAILY [facility] Last Admin: 04/29/17 08:11 Dose: 2 spray Hydromorphone HCl (Dilaudid Button [employer] Buckle Maker 15 Mg In Ns 30 Ml) 0 mg IV ASDIRECTED PRN; Protocol PRN Reason: Pain Last Admin: 04/29/17 01:02 Dose: 15 mg Sodium Chloride (Normal Saline) 1,000 mls @ 75 mls/hr IV ASDIRECTED [facility] Last Admin: 04/29/17 08:03 Dose: 75 mls/hr Ibuprofen (Motrin) 800 mg PO Q8H PRN PRN Reason: Pain Last Admin: 04/29/17 20:22 Dose: 800 mg Lorazepam (Ativan) 1 mg IV Q6H PRN PRN Reason: Nausea/Vomiting Last Admin: 04/29/17 00:38 Dose: 1 mg Naloxone HCl (Narcan) 0.1 mg IV ASDIRECTED PRN PRN Reason: decreased respiratory rate Pregabalin (Lyrica) 150 mg PO BID [facility] Last Admin: 04/29/17 20:22 Dose: 150 mg Sodium Chloride (Saline Flush) 10 ml FLUSH ASDIRECTED PRN PRN Reason: Keep Vein Open Discontinued Medications Bupivacaine HCl (Sensorcaine-Mpf 0.25%) Confirm Administered Dose 10 ml .ROUTE .STK-MED ONE Stop: 04/28/17 10:09 Fentanyl (Sublimaze) 100 mcg IVPUSH ONETIME ONE Stop: 04/25/17 22:52 Last Admin: 04/25/17 23:12 Dose: 100 mcg Hydromorphone HCl (Dilaudid) 1 mg IVPUSH .ONETIME ONE Stop: 04/25/17 21:59 Last Admin: 04/25/17 22:21 Dose: 1 mg Hydromorphone HCl (Dilaudid [employer] Buckle Maker 15 Mg In Ns 30 Ml) 15 mg IV ASDIRECTED [facility] PRN Reason: Protocol Last Admin: 04/25/17 23:55 Dose: 15 mg Lactated Ringer's (Ringers, Lactated) 1,000 mls @ 999 mls/hr IV ASDIRECTED [facility] Last Admin: 04/25/17 22:18 Dose: 999 mls/hr Lactated Ringer's (Ringers, Lactated) 500 mls @ 150 mls/hr IV .BOLUS [facility] Last Admin: 04/26/17 06:16 Dose: 150 mls/hr Magnesium Citrate (Citrate Of Magnesia) 296 ml PO ONETIME ONE Stop: 04/28/17 17:31 Last Admin: 04/28/17 17:55 Dose: 296 ml Methylprednisolone Acetate (Depo-Medrol) Confirm Administered Dose 80 mg .ROUTE .STK-MED ONE Stop: 04/28/17 10:09 Ondansetron HCl (Zofran) 4 mg IVPUSH ONETIME ONE Stop: 04/25/17 21:59 Last Admin: 04/25/17 22:19 Dose: 4 mg Pregabalin (Lyrica) 75 mg PO BID [facility] Last Admin: 04/27/17 10:19 Dose: 75 mg - Problem List Review Problem List Initiated/Reviewed/Updated: Yes - My Orders Last 24 Hours: My Active Orders 04/29/17 13:35 Consult to Physician [CONS] Routine 04/29/17 13:37 Notify Provider Consults [RC] ASDIRECTED 04/29/17 Breakfast Regular Diet [DIET] - Plan Plan:: Assessment/plan: Pancreatitis He has made good improvement with less abdominal pain. he is held down and advance diet today. #2. Neuritis: Have restarted Lyrica #3. Low back pain. I ordered epidural injections that were done and did give him relief. He has passed stools with citrated magnesium given last night. Plan would be to discharge him home tomorrow. He will be going to find manner to complete his treatment. I will repeat blood work in the morning.
[2017-04-30] MEDS: Acetaminophen 325 MG Tab PO PRN (03:15)
[2017-04-30] MEDS: Pregabalin 75 MG Cap PO SCH (08:00)
[2017-04-30] MEDS: Ibuprofen 800 MG Tab PO PRN (08:00)
[2017-04-30] MEDS: busPIRone 5 MG Tab PO SCH (08:00)
[2017-04-30] MEDS: Fluticasone Propionate Nasal Spray 16 GM Bottle NASBOTH SCH (08:02)
--- NOTE | 2017-04-30 08:41 | PCM.PN ---
- General Info Date of Service: 04/30/17 Subjective Update: He continues to have pain worse when he gets up. He points to the sides of his abd. He is holding down food. He is off narcotics. - Review of Systems General: Reports: No Symptoms HEENT: Reports: No Symptoms Pulmonary: Reports: Shortness of Breath Cardiovascular: Reports: No Symptoms Gastrointestinal: Reports: Abdominal Pain, Nausea Genitourinary: Reports: No Symptoms Musculoskeletal: Reports: Back Pain Skin: Reports: No Symptoms Neurological: Reports: No Symptoms Psychiatric: Reports: Anxiety - Patient Data Vitals - Most Recent: Last Vital Signs Temp 98.4 F 04/30/17 08:32 Pulse 76 04/30/17 08:32 Resp 18 04/30/17 08:32 BP 132/78 04/30/17 08:32 Pulse Ox 97 04/30/17 08:32 Weight - Most Recent: 159 lb 11.21 oz I&O - Last 24 Hours: Intake & Output 04/29/17 04/30/17 04/30/17 22:59 06:59 14:59 Intake Total 550 Balance 550 Lab Results Last 24 Hours: Laboratory Results - last 24 hr 04/30/17 04/30/17 Range/Units 05:51 05:51 WBC 6.5 (4.5-11.0) K/uL RBC 3.69 L (4.30-5.90) M/uL Hgb 12.3 (12.0-15.0) g/dL Hct 36.1 L (40.0-54.0) % MCV 98 (80-98) fL MCH 33 H (27-31) pg MCHC 34 (32-36) % Plt Count 296 (150-400) K/uL Neut % (Auto) 66 (36-66) % Lymph % (Auto) 19 L (24-44) % [place] % (Auto) 13 H (2-6) % Eos % (Auto) 2 (2-4) % Baso % (Auto) 0 (0-1) % Sodium 139 L (140-148) mmol/L Potassium 4.4 (3.6-5.2) mmol/L Chloride 104 (100-108) mmol/L Carbon Dioxide 27 (21-32) mmol/L Anion Gap 12.4 (5.0-14.0) mmol/L BUN 14 D (7-18) mg/dL Creatinine 0.8 (0.8-1.3) mg/dL Est Cr Clr Drug Dosing 108.16 mL/min Estimated GFR (MDRD) > 60 (>60) Glucose 123 H (74-106) mg/dL Calcium 9.2 (8.5-10.1) mg/dL Total Bilirubin 0.2 (0.2-1.0) mg/dL AST 15 (15-37) U/L ALT 25 (12-78) U/L Alkaline Phosphatase 68 (46-116) U/L Total Protein 7.3 (6.4-8.2) g/dL Albumin 3.7 (3.4-5.0) g/dL Globulin 3.6 H (2.3-3.5) g/dL Albumin/Globulin Ratio 1.0 L (1.2-2.2) Lipase 274 (73-393) U/L Med Orders - Current: Current Medications Acetaminophen (Tylenol) 650 mg PO Q6H PRN PRN Reason: Pain Last Admin: 04/30/17 03:15 Dose: 650 mg Buspirone HCl (Buspar) 15 mg PO BID [facility] Last Admin: 04/30/17 08:00 Dose: 15 mg Fluticasone Propionate (Flonase) 0 gm NASBOTH DAILY [facility] Last Admin: 04/30/17 08:02 Dose: 2 spray Ibuprofen (Motrin) 800 mg PO Q8H PRN PRN Reason: Pain Last Admin: 04/30/17 08:00 Dose: 800 mg Lorazepam (Ativan) 1 mg IV Q6H PRN PRN Reason: Nausea/Vomiting Last Admin: 04/29/17 00:38 Dose: 1 mg Pregabalin (Lyrica) 150 mg PO BID [facility] Last Admin: 04/30/17 08:00 Dose: 150 mg Sodium Chloride (Saline Flush) 10 ml FLUSH ASDIRECTED PRN PRN Reason: Keep Vein Open Discontinued Medications Bupivacaine HCl (Sensorcaine-Mpf 0.25%) Confirm Administered Dose 10 ml .ROUTE .STK-MED ONE Stop: 04/28/17 10:09 Fentanyl (Sublimaze) 100 mcg IVPUSH ONETIME ONE Stop: 04/25/17 22:52 Last Admin: 04/25/17 23:12 Dose: 100 mcg Hydromorphone HCl (Dilaudid) 1 mg IVPUSH .ONETIME ONE Stop: 04/25/17 21:59 Last Admin: 04/25/17 22:21 Dose: 1 mg Hydromorphone HCl (Dilaudid [employer] 15 Mg In Ns 30 Ml) 15 mg IV ASDIRECTED [facility] PRN Reason: Protocol Last Admin: 04/25/17 23:55 Dose: 15 mg Hydromorphone HCl (Dilaudid [employer] 15 Mg In Ns 30 Ml) 0 mg IV ASDIRECTED PRN; Protocol PRN Reason: Pain Last Admin: 04/29/17 01:02 Dose: 15 mg Lactated Ringer's (Ringers, Lactated) 1,000 mls @ 999 mls/hr IV ASDIRECTED [facility] Last Admin: 04/25/17 22:18 Dose: 999 mls/hr Lactated Ringer's (Ringers, Lactated) 500 mls @ 150 mls/hr IV .BOLUS [facility] Last Admin: 04/26/17 06:16 Dose: 150 mls/hr Sodium Chloride (Normal Saline) 1,000 mls @ 75 mls/hr IV ASDIRECTED [facility] Last Admin: 04/29/17 08:03 Dose: 75 mls/hr Magnesium Citrate (Citrate Of Magnesia) 296 ml PO ONETIME ONE Stop: 04/28/17 17:31 Last Admin: 04/28/17 17:55 Dose: 296 ml Methylprednisolone Acetate (Depo-Medrol) Confirm Administered Dose 80 mg .ROUTE .STK-MED ONE Stop: 04/28/17 10:09 Naloxone HCl (Narcan) 0.1 mg IV ASDIRECTED PRN PRN Reason: decreased respiratory rate Ondansetron HCl (Zofran) 4 mg IVPUSH ONETIME ONE Stop: 04/25/17 21:59 Last Admin: 04/25/17 22:19 Dose: 4 mg Pregabalin (Lyrica) 75 mg PO BID [facility] Last Admin: 04/27/17 10:19 Dose: 75 mg - Exam General: Alert, Oriented HEENT: Pupils Equal, Pupils Reactive, EOMI, Mucous Membr. Moist/[place] Neck: Supple Lungs: Clear to Auscultation, Normal Respiratory Effort Cardiovascular: Regular Rate, Regular Rhythm GI/Abdominal Exam: Normal Bowel Sounds, Guarding, Tender Back Exam: Vertebral Tenderness Extremities: Normal Inspection Peripheral Pulses: 1+: Radial (L), Radial (R) Skin: Warm, Dry, Intact Psy/Mental Status: Anxious - Problem List Review Problem List Initiated/Reviewed/Updated: Yes - My Orders Last 24 Hours: My Active Orders 04/29/17 13:35 Consult to Physician [CONS] Routine 04/29/17 13:37 Notify Provider Consults [RC] ASDIRECTED 04/29/17 20:44 Communication Order [RC] ASDIRECTED 04/29/17 Breakfast Regular Diet [DIET] - Plan Plan:: Assessment/plan: Pancreatitis He has made good improvement with less abdominal pain. He is able to eat still has nausea but no vomiting. #2. Neuritis: Will continue with Lyrixca 150 bid #3. Low back pain. Chronic presently. May need to have this further evaluated as the injections gave temporary relief. Will discharge to [facility] today
--- NOTE | 2017-04-30 08:48 | PCM.DCSUM1 ---
Discharge Summary - Hospital Course Brief History: He came in from [place] having severe abd pain caused by documented pancreatitis. He was unable to hold down food and was dehydrated. - Discharge Data Discharge Date: 04/30/17 Discharge Disposition: DC/Tfer to [facility]pt Rehab [facility] Condition: Stable - Patient Summary/Data Consults: Consultations 04/29/17 13:35 Consult to Physician [CONS] Routine Consulting Provider: Cliff Estrella Sr Courtesy Call Completed to Consulting Physician: No Reason for Consult: back pain, chronic Person Notified: akhil [email or web address] Date Notified: 04/29/17 Time Notified: 13:36 Hospital Course: while in the hospital he had slow improvement in his abd pain but the pain from the low back became worse. He had injedtions in his baack with minimal improvement. He had a MRI 3 weeks ago in his home town. He was placed back on Lyrica which helped his pain. While in the hospital he also had Dilaudid for pain relief upon admission. - Patient Instructions Diet: Heart Healthy Diet, Usual Diet as Tolerated Activity: As Tolerated - Discharge Plan Home Medications: Home Meds Fluticasone Propionate [Flonase] 2 spray TOP DAILY 04/25/17 [History] Ibuprofen 1 tab PO TID 04/25/17 [History] busPIRone HCl [Buspirone HCl] 1 tab PO BID 04/25/17 [History] Acetaminophen [Tylenol] 650 mg PO Q6H PRN tablet 04/30/17 [Rx] Ibuprofen [IJD: Ibuprofen] 800 mg PO Q8H PRN tablet 04/30/17 [Rx] Pregabalin [Lyrica] 150 mg PO BID cap 04/30/17 [Rx] Patient Handouts: Acute Pancreatitis, [id number] Referrals: PCP,None [Primary Care Provider] - - Discharge Summary/Plan Comment Discharge Summary/Plan Comment: Dx. Pancreatitis. Low back pain. Alcoholism - Patient Data Vitals - Most Recent: Last Vital Signs Temp 98.4 F 04/30/17 08:32 Pulse 76 04/30/17 08:32 Resp 18 04/30/17 08:32 BP 132/78 04/30/17 08:32 Pulse Ox 97 04/30/17 08:32 Weight - Most Recent: 159 lb 11.21 oz I&O - Last 24 hours: Intake & Output 04/29/17 04/30/17 04/30/17 22:59 06:59 14:59 Intake Total 550 Balance 550 Lab Results - Last 24 hrs: Laboratory Results - last 24 hr 04/30/17 04/30/17 Range/Units 05:51 05:51 WBC 6.5 (4.5-11.0) K/uL RBC 3.69 L (4.30-5.90) M/uL Hgb 12.3 (12.0-15.0) g/dL Hct 36.1 L (40.0-54.0) % MCV 98 (80-98) fL MCH 33 H (27-31) pg MCHC 34 (32-36) % Plt Count 296 (150-400) K/uL Neut % (Auto) 66 (36-66) % Lymph % (Auto) 19 L (24-44) % [place] % (Auto) 13 H (2-6) % Eos % (Auto) 2 (2-4) % Baso % (Auto) 0 (0-1) % Sodium 139 L (140-148) mmol/L Potassium 4.4 (3.6-5.2) mmol/L Chloride 104 (100-108) mmol/L Carbon Dioxide 27 (21-32) mmol/L Anion Gap 12.4 (5.0-14.0) mmol/L BUN 14 D (7-18) mg/dL Creatinine 0.8 (0.8-1.3) mg/dL Est Cr Clr Drug Dosing 108.16 mL/min Estimated GFR (MDRD) > 60 (>60) Glucose 123 H (74-106) mg/dL Calcium 9.2 (8.5-10.1) mg/dL Total Bilirubin 0.2 (0.2-1.0) mg/dL AST 15 (15-37) U/L ALT 25 (12-78) U/L Alkaline Phosphatase 68 (46-116) U/L Total Protein 7.3 (6.4-8.2) g/dL Albumin 3.7 (3.4-5.0) g/dL Globulin 3.6 H (2.3-3.5) g/dL Albumin/Globulin Ratio 1.0 L (1.2-2.2) Lipase 274 (73-393) U/L Med Orders - Current: Current Medications Acetaminophen (Tylenol) 650 mg PO Q6H PRN PRN Reason: Pain Last Admin: 04/30/17 03:15 Dose: 650 mg Buspirone HCl (Buspar) 15 mg PO BID [facility] Last Admin: 04/30/17 08:00 Dose: 15 mg Fluticasone Propionate (Flonase) 0 gm NASBOTH DAILY [facility] Last Admin: 04/30/17 08:02 Dose: 2 spray Ibuprofen (Motrin) 800 mg PO Q8H PRN PRN Reason: Pain Last Admin: 04/30/17 08:00 Dose: 800 mg Lorazepam (Ativan) 1 mg IV Q6H PRN PRN Reason: Nausea/Vomiting Last Admin: 04/29/17 00:38 Dose: 1 mg Pregabalin (Lyrica) 150 mg PO BID [facility] Last Admin: 04/30/17 08:00 Dose: 150 mg Sodium Chloride (Saline Flush) 10 ml FLUSH ASDIRECTED PRN PRN Reason: Keep Vein Open Discontinued Medications Bupivacaine HCl (Sensorcaine-Mpf 0.25%) Confirm Administered Dose 10 ml .ROUTE .STK-MED ONE Stop: 04/28/17 10:09 Fentanyl (Sublimaze) 100 mcg IVPUSH ONETIME ONE Stop: 04/25/17 22:52 Last Admin: 04/25/17 23:12 Dose: 100 mcg Hydromorphone HCl (Dilaudid) 1 mg IVPUSH .ONETIME ONE Stop: 04/25/17 21:59 Last Admin: 04/25/17 22:21 Dose: 1 mg Hydromorphone HCl (Dilaudid Retail Key Holder 15 Mg In Ns 30 Ml) 15 mg IV ASDIRECTED [facility] PRN Reason: Protocol Last Admin: 04/25/17 23:55 Dose: 15 mg Hydromorphone HCl (Dilaudid Retail Key Holder 15 Mg In Ns 30 Ml) 0 mg IV ASDIRECTED PRN; Protocol PRN Reason: Pain Last Admin: 04/29/17 01:02 Dose: 15 mg Lactated Ringer's (Ringers, Lactated) 1,000 mls @ 999 mls/hr IV ASDIRECTED [facility] Last Admin: 04/25/17 22:18 Dose: 999 mls/hr Lactated Ringer's (Ringers, Lactated) 500 mls @ 150 mls/hr IV .BOLUS [facility] Last Admin: 04/26/17 06:16 Dose: 150 mls/hr Sodium Chloride (Normal Saline) 1,000 mls @ 75 mls/hr IV ASDIRECTED [facility] Last Admin: 04/29/17 08:03 Dose: 75 mls/hr Magnesium Citrate (Citrate Of Magnesia) 296 ml PO ONETIME ONE Stop: 04/28/17 17:31 Last Admin: 04/28/17 17:55 Dose: 296 ml Methylprednisolone Acetate (Depo-Medrol) Confirm Administered Dose 80 mg .ROUTE .STK-MED ONE Stop: 04/28/17 10:09 Naloxone HCl (Narcan) 0.1 mg IV ASDIRECTED PRN PRN Reason: decreased respiratory rate Ondansetron HCl (Zofran) 4 mg IVPUSH ONETIME ONE Stop: 04/25/17 21:59 Last Admin: 04/25/17 22:19 Dose: 4 mg Pregabalin (Lyrica) 75 mg PO BID [facility] Last Admin: 04/27/17 10:19 Dose: 75 mg *Q Meaningful Use (DIS) - VTE *Q VTE Criteria *Q: - Stroke *Q Stroke Criteria *Q: - AMI *Q AMI Criteria *Q:
== END 2017-04-30 10:00 | DRG 440 ==
LOC: JP.ED 21:13 → JP.ICU 23:11 → JP.2SS 04-27 13:30
PROVIDERS: ADMIT Internal Medicine; ATTEND Internal Medicine
PROC: 3E0S33Z Introduction of Anti-inflammatory into Epidural Space, Percutaneous Approach (ICD-10-PCS; principal; 2017-04-28)
PROC: 3E0S3BZ Introduction of Anesthetic Agent into Epidural Space, Percutaneous Approach (ICD-10-PCS; 2017-04-28)
DX: K85.20 Alcohol induced acute pancreatitis without necrosis or infection (principal); F10.20 Alcohol dependence, uncomplicated; H54.7 Unspecified visual loss; F41.9 Anxiety disorder, unspecified; G62.9 Polyneuropathy, unspecified; M54.5 Low back pain; E86.0 Dehydration
CPT/HCPCS: 36415; 80048; 80053; 81001; 82150; 83605; 83690; 84484; 85025; 94762; 96361; 96374; 96375; 99285-25; A9270-GY; J1040; J1170; J2060; J2405; J3010; J7040; J7120

== ENCOUNTER 2018-07-16 16:57 | Emergency (ER) | payer MEDICAID ==
[2018-07-16] MEDS ORDERED: MVI, Adult with Vitamin K 10 ML, Thiamine 100 MG, Folic Acid 1 MG, Magnesium Sulfate 3 ... IV SCH ×5 (18:00)
[2018-07-16] MEDS ORDERED: Metoclopramide 10 MG/2 ML SDV IVPUSH ONE (18:04)
[2018-07-16] MEDS ORDERED: HYDROmorphone 1 MG/ML Syringe IVPUSH ONE ×3 (18:10→21:34)
--- NOTE | 2018-07-16 18:10 | EDM.PDOC ---
ED HPI GENERAL MEDICAL PROBLEM - General Chief Complaint: Abdominal Pain Stated Complaint: [facility] Time Seen by Provider: 07/16/18 18:00 Source of Information: Reports: Patient, Old Records, RN History Limitations: Reports: No Limitations - History of Present Illness INITIAL COMMENTS - FREE TEXT/NARRATIVE: 53 yo male alcoholic here via EMS with upper abdominal pain for a few days associated with nausea and vomiting. No hematemesis. The pain reminds him of pancreatitis he has had before. He is s/p appendectomy and cholecystectomy. EMS gave Fentanyl 100 mcg and Dilaudid 1 mg IV, but he is still complaining of pain. Has been drinking heavily today also. He lives alone. Onset: Gradual Onset Date: 07/13/18 Duration: Day(s):, Getting Worse Location: Reports: Abdomen Quality: Reports: Burning, Stabbing Severity: Severe Improves with: Reports: Medication Worsens with: Reports: Other (time) Context: Reports: Other (See HPI) Associated Symptoms: Reports: Loss of Appetite, Nausea/Vomiting. 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: Other (see below) (See HPI) Abdominal Pain Score (Numeric/FACES): 9 - Related Data Allergies Allergy/AdvReac Type Severity Reaction Status Date / Time No Known Allergies Allergy Verified 07/16/18 18:01 Home Meds: Home Meds Gabapentin [Neurontin] 900 mg PO TID 02/22/18 [History] Past Medical History HEENT History: Reports: Impaired Vision Gastrointestinal History: Reports: Pancreatitis Other Gastrointestinal History: pancreatitis Musculoskeletal History: Reports: Fracture Neurological History: Reports: Neuropathy, Peripheral Psychiatric History: Reports: Addiction - Infectious Disease History Infectious Disease History: Reports: Chicken Pox - Past Surgical History Musculoskeletal Surgical History: Reports: Arthroscopic Knee Social & Family History - Family History Family Medical History: Noncontributory - Tobacco Use Smoking Status *Q: Unknown Ever Smoked - Caffeine Use Caffeine Use: Reports: Coffee, Soda - Alcohol Use Days Per Week of Alcohol Use: 7 Number of Drinks Per Day: 0 Total Drinks Per Week: 0 - Recreational Drug Use Recreational Drug Use: No ED ROS GENERAL - Review of Systems Review Of Systems: See Below Constitutional: Reports: No Symptoms HEENT: Reports: No Symptoms Respiratory: Reports: No Symptoms Cardiovascular: Reports: No Symptoms Endocrine: Reports: No Symptoms GI/Abdominal: Reports: Abdominal Pain, Anorexia, Decreased Appetite, Nausea, Vomiting. Denies: Black Stool, Bloody Stool, Constipation, Diarrhea, Distension , Flatus, Hematochezia, Melena : Reports: No Symptoms Musculoskeletal: Reports: No Symptoms Skin: Reports: No Symptoms Neurological: Reports: No Symptoms ED EXAM, GI/ABD - Physical Exam Exam: See Below Exam Limited By: Intoxication General Appearance: Alert, WD/WN, No Apparent Distress Eyes: Bilateral: Normal Appearance Ears: Normal External Exam, Normal Canal, Hearing Grossly Normal Nose: Normal Inspection, Normal Mucosa, No Blood Throat/Mouth: Normal Inspection, Normal Lips, Normal Oropharynx, Normal Voice, No Airway Compromise Head: Atraumatic, Normocephalic Neck: Normal Inspection, Supple, Non-Tender Respiratory/Chest: No Respiratory Distress, Lungs Clear, Normal Breath Sounds, No Accessory Muscle Use Cardiovascular: Regular Rate, Rhythm, No Edema GI/Abdominal Exam: Normal Bowel Sounds, Soft, No Distention, Tender (upper abdomen). No: Non-Tender, Distended, Guarding, Rigid, Rebound Back Exam: Normal Inspection. No: CVA Tenderness (R), CVA Tenderness (L) Extremities: Normal Inspection, Normal Range of Motion, Non-Tender, No Pedal Edema Neurological: Alert, Oriented, CN II-XII Intact, Normal Cognition, No Motor/ Sensory Deficits Psychiatric: Normal Affect, Normal Mood Skin Exam: Warm, Dry, Intact, Normal Color, No Rash Course - Vital Signs Text/Narrative:: Dr. Myrick accepted in transfer to [facility] direct admission, Last Recorded V/S: Last Vital Signs Temp 37.1 C 07/16/18 17:58 Pulse 101 H 07/16/18 17:58 Resp 16 07/16/18 17:58 BP 139/88 07/16/18 17:58 Pulse Ox 94 L 07/16/18 17:58 - Orders/Labs/Meds Orders: Active Orders 24 hr Category Date Time Status Iopamidol [Isovue-300 (61%)] Med 07/16/18 18:45 Active 100 ml IV . DIRECTED MVI, Adult with Vitamin K [Infuvite Adult] 10 ml Med 07/16/18 18:00 Active Thiamine [Vitamin B-1] 100 mg Folic Acid 1 mg Magnesium Sulfate [Magnesium Sulfate 50%] 3 gm Sodium Chloride 0.9% [Normal Saline] 1,000 ml IV ASDIRECTED Sodium Chloride 0.9% [Normal Saline] 80 ml Med 07/16/18 18:45 Active IV ASDIRECTED Sodium Chloride 0.9% [Saline Flush] Med 07/16/18 18:45 Active 10 ml FLUSH ASDIRECTED PRN Medication Orders Multivitamins/Minerals 10 ml/Thiamine HCl 100 mg/ Folic Acid 1 mg/ Magnesium Sulfate 3 gm/ Sodium Chloride 1,017.2 mls @ 500 mls/hr IV ASDIRECTED RAFAT Last Admin: 07/16/18 19:07 Dose: 500 mls/hr Sodium Chloride (Normal Saline) 80 mls @ 3 mls/sec IV ASDIRECTED RAFAT Last Admin: 07/16/18 18:59 Dose: 3 mls/sec Iopamidol (Isovue-300 (61%)) 100 ml IV . DIRECTED RAFAT Last Admin: 07/16/18 18:59 Dose: 100 ml Sodium Chloride (Saline Flush) 10 ml FLUSH ASDIRECTED PRN PRN Reason: Keep Vein Open Last Admin: 07/16/18 18:59 Dose: 10 ml Labs: Laboratory Tests 07/16/18 07/16/18 07/16/18 Range/Units 18:00 18:00 18:00 WBC 6.2 (4.5-11.0) K/uL RBC 4.50 (4.30-5.90) M/uL Hgb 14.4 D (12.0-15.0) g/dL Hct 41.8 (40.0-54.0) % MCV 93 (80-98) fL MCH 32 H (27-31) pg MCHC 34 (32-36) % Plt Count 127 L (150-400) K/uL Sodium 141 (140-148) mmol/L Potassium 4.1 (3.6-5.2) mmol/L Chloride 99 L (100-108) mmol/L Carbon Dioxide 28 (21-32) mmol/L Anion Gap 18.1 H (5.0-14.0) mmol/L BUN 11 (7-18) mg/dL Creatinine 0.6 L (0.8-1.3) mg/dL Est Cr Clr Drug Dosing 147.26 mL/min Estimated GFR (MDRD) > 60 (>60) Glucose 107 H (74-106) mg/dL Calcium 8.8 (8.5-10.1) mg/dL Total Bilirubin 0.6 (0.2-1.0) mg/dL AST 370 H D (15-37) U/L ALT 170 H (12-78) U/L Alkaline Phosphatase 133 H (46-116) U/L Total Protein 7.9 (6.4-8.2) g/dL Albumin 3.7 (3.4-5.0) g/dL Globulin 4.2 H (2.3-3.5) g/dL Albumin/Globulin Ratio 0.9 L (1.2-2.2) Lipase (73-393) U/L Ethyl Alcohol 440 mg/dL 07/16/18 Range/Units 18:00 WBC (4.5-11.0) K/uL RBC (4.30-5.90) M/uL Hgb (12.0-15.0) g/dL Hct (40.0-54.0) % MCV (80-98) fL MCH (27-31) pg MCHC (32-36) % Plt Count (150-400) K/uL Sodium (140-148) mmol/L Potassium (3.6-5.2) mmol/L Chloride (100-108) mmol/L Carbon Dioxide (21-32) mmol/L Anion Gap (5.0-14.0) mmol/L BUN (7-18) mg/dL Creatinine (0.8-1.3) mg/dL Est Cr Clr Drug Dosing mL/min Estimated GFR (MDRD) (>60) Glucose (74-106) mg/dL Calcium (8.5-10.1) mg/dL Total Bilirubin (0.2-1.0) mg/dL AST (15-37) U/L ALT (12-78) U/L Alkaline Phosphatase (46-116) U/L Total Protein (6.4-8.2) g/dL Albumin (3.4-5.0) g/dL Globulin (2.3-3.5) g/dL Albumin/Globulin Ratio (1.2-2.2) Lipase 5006 H (73-393) U/L Ethyl Alcohol mg/dL Meds: Medications Generic Name Dose Route Start Last Admin Trade Name Freq PRN Reason Stop Dose Admin Multivitamins/Minerals 10 ml/ 1,017.2 mls @ 500 mls/hr 07/16/18 18:00 19:07 Thiamine HCl 100 mg/ Folic IV 500 mls/hr Acid 1 mg/ Magnesium Sulfate 3 ASDIRECTED RAFAT Administration gm/ Sodium Chloride Sodium Chloride 80 mls @ 3 mls/sec 07/16/18 18:45 07/16/18 18:59 Normal Saline IV 3 mls/sec ASDIRECTED RAFAT Administration Iopamidol 100 ml 07/16/18 18:45 07/16/18 18:59 Isovue-300 (61%) IV 100 ml . DIRECTED RAFAT Administration Sodium Chloride 10 ml 07/16/18 18:45 07/16/18 18:59 Saline Flush FLUSH 10 ml ASDIRECTED PRN Administration Keep Vein Open Discontinued Medications Generic Name Dose Route Start Last Admin Trade Name Freq PRN Reason Stop Dose Admin Hydromorphone HCl 1 mg 07/16/18 18:10 07/16/18 18:35 Dilaudid IVPUSH 07/16/18 18:11 1 mg ONETIME ONE Administration Metoclopramide HCl 10 mg 07/16/18 18:04 07/16/18 18:35 Reglan IVPUSH 07/16/18 18:05 10 mg ONETIME ONE Administration - Radiology Interpretation Free Text/Narrative:: abd/pelvis CT with IV contrast-mild acute pancreatitis. Dilated pancreatic and common bile duct. CT Results Date: 07/16/18 Departure - Departure Time of Disposition: 20:30 Disposition: DC/Tfer to Acute Hospital 02 Condition: Poor Clinical Impression: Common bile duct dilatation Acute pancreatitis Qualifiers: Pancreatitis type: alcohol induced Acute pancreatitis complication: unspecified Qualified Code(s): K85.20 - Alcohol induced acute pancreatitis without necrosis or infection Alcoholic hepatitis Qualifiers: Ascites presence: without ascites Qualified Code(s): K70.10 - Alcoholic hepatitis without ascites Alcohol intoxication Qualifiers: Complication of substance-induced condition: with unspecified complication Qualified Code(s): F10.929 - Alcohol use, unspecified with intoxication, unspecified - Discharge Information *PRESCRIPTION DRUG MONITORING PROGRAM REVIEWED*: No *COPY OF PRESCRIPTION DRUG MONITORING REPORT IN PATIENT EMIGDIO: No Referrals: PCP,None [Primary Care Provider] - Forms: ED Department Discharge - My Orders Last 24 Hours: My Active Orders 07/16/18 18:00 MVI, Adult with Vitamin K [Infuvite Adult] 10 ml Thiamine [Vitamin B-1] 100 mg Folic Acid 1 mg Magnesium Sulfate [Magnesium Sulfate 50%] 3 gm Sodium Chloride 0.9% [Normal Saline] 1,000 ml IV ASDIRECTED 07/16/18 18:45 Iopamidol [Isovue-300 (61%)] 100 ml IV . DIRECTED Sodium Chloride 0.9% [Normal Saline] 80 ml IV ASDIRECTED Sodium Chloride 0.9% [Saline Flush] 10 ml FLUSH ASDIRECTED PRN - Assessment/Plan Last 24 Hours: My Active Orders 07/16/18 18:00 MVI, Adult with Vitamin K [Infuvite Adult] 10 ml Thiamine [Vitamin B-1] 100 mg Folic Acid 1 mg Magnesium Sulfate [Magnesium Sulfate 50%] 3 gm Sodium Chloride 0.9% [Normal Saline] 1,000 ml IV ASDIRECTED 07/16/18 18:45 Iopamidol [Isovue-300 (61%)] 100 ml IV . DIRECTED Sodium Chloride 0.9% [Normal Saline] 80 ml IV ASDIRECTED Sodium Chloride 0.9% [Saline Flush] 10 ml FLUSH ASDIRECTED PRN
[2018-07-16] MEDS ORDERED: Sodium Chloride 0.9% 80 ML IV SCH (18:45)
[2018-07-16] MEDS ORDERED: Sodium Chloride 0.9% 10 ML Syringe FLUSH PRN (18:45)
[2018-07-16] MEDS ORDERED: Iopamidol 612 MG/ML 100 ML Bottle IV SCH (18:45)
--- NOTE | 2018-07-16 19:41 | CRLCT ---
INDICATION: Acute pancreatitis. COMPARISON: 02/22/2018 TECHNIQUE: CT examination of the abdomen and pelvis was performed with the uneventful intravenous administration of 100 cc of Isovue-300 while 3 mm thick axial sections were obtained from the lung bases through the pubic symphysis. Oral contrast was not administered. Please note that all CT scans at this facility use dose modulation, iterative reconstruction, and/or weight-based dosing when appropriate to reduce radiation dose to as low as reasonably achievable. FINDINGS: In the abdomen, the liver remains low in density, representing fatty infiltration. There is no sign of mass. There are new changes of cholecystectomy. There is a prominent increase in dilatation of the common bile duct,, now 15 millimeters, previously 11 millimeters. The dilatation extends through the pancreatic head without a distinct mass or common duct calculus. There is new moderate dilatation of the pancreatic duct, measuring 3 millimeters in caliber. There is new mild fluid around the pancreatic head, findings representing mild acute pancreatitis. There is no sign of any inflammatory reaction around the pancreas. There is no sign of pancreatic infarction, phlegmon, or pseudocyst formation. The spleen and adrenals are normal in appearance. The kidneys are normal in appearance. The abdominal aorta is normal in caliber with no sign of dilatation. There is no sign of retroperitoneal mass or adenopathy. The stomach, loops of small bowel, and colon in the abdomen are normal in appearance. In the pelvis, the appendix is nonvisualized, but there is no sign of an inflammatory process in the area of the appendix. Surgical clips are seen in the area of the appendix consistent with appendectomy. The loops of small bowel and colon in the pelvis are normal in appearance. The prostate remains mildly enlarged, measuring 4.9 centimeters in diameter. It is otherwise normal in appearance. The urinary bladder is normal in appearance. The previously seen [place] catheter has been removed. There is no sign of pelvic or inguinal mass or adenopathy. The lung bases are clear. Again seen is minimal posterior subluxation of L5 on S1 with prominent L5-S1 disc degenerative disease. IMPRESSION: CT of the abdomen shows new changes of mild acute pancreatitis involving the pancreatic head. There is a mild amount of fluid around the pancreatic head. No sign of pseudocyst, phlegmon, or pancreatic infarction. Status post cholecystectomy. New moderate dilatation of the pancreatic duct and increased common bile duct dilatation, now prominent. Again seen is fatty infiltration of the liver. CT of the pelvis shows no change in mild enlargement of the prostate. Status post appendectomy. Please note that all CT scans at this facility use dose modulation, iterative reconstruction, and/or weight-based dosing when appropriate to reduce radiation dose to as low as reasonably achievable. Dictated by Patrick Valencia MD @ Jul 16 2018 7:25PM Signed by Dr. Patrick Valencia @ Jul 16 2018 7:39PM
[2018-07-16] MEDS ORDERED: Sodium Chloride 0.9% 1,000 ML IV SCH (22:45)
[2018-07-16] MEDS ORDERED: HYDROmorphone 0.5 MG/0.5 ML Syringe IVPUSH ONE (23:17)
== END 2018-07-16 23:36 ==
LOC: JP.ED 16:57
DX: K85.20 Alcohol induced acute pancreatitis without necrosis or infection (principal); K70.10 Alcoholic hepatitis without ascites; K83.8 Other specified diseases of biliary tract; F10.929 Alcohol use, unspecified with intoxication, unspecified; Y90.8 Blood alcohol level of 240 mg/100 ml or more
CPT/HCPCS: 36415; 74177; 80053; 83690; 85027; 96361; 96365; 96366; 96375; 96376; 99285; G0480; J1170; J2765; J3411; J3475; J7030; Q9967; J3490

== ENCOUNTER 2018-08-01 23:13 | Inpatient (IN) | payer MEDICAID ==
[2018-08-02] MEDS ORDERED: Sodium Chloride 0.9% 10 ML Syringe FLUSH PRN (01:00)
[2018-08-02] MEDS ORDERED: Sodium Chloride 0.9% 250 ML IV SCH (01:30)
[2018-08-02] MEDS ORDERED: HYDROmorphone 1 MG/ML Syringe ONE ×3 (01:47→08:18)
[2018-08-02] MEDS ORDERED: HYDROmorphone 1 MG/ML Syringe IVPUSH ONE (01:50)
[2018-08-02] MEDS ORDERED: MVI, Adult with Vitamin K 10 ML, Magnesium Sulfate 2 GM, Folic Acid 1 MG, Thiamine 100 ... IV ONE ×5 (02:10)
[2018-08-02] MEDS ORDERED: Magnesium Sulfate (4.06 MEQ/ML) 1 GM/2 ML SDV ONE (02:45)
[2018-08-02] MEDS ORDERED: Thiamine 200 MG/2 ML MDV ONE (02:45)
[2018-08-02] MEDS ORDERED: Folic Acid 50 MG/10 ML MDV ONE (02:45)
[2018-08-02] MEDS ORDERED: MVI, Adult with Vitamin K 10 ML SDV IV ONE (02:46)
[2018-08-02] MEDS ORDERED: Bisacodyl 10 MG Supp RECTAL PRN (03:00)
[2018-08-02] MEDS ORDERED: Aluminum Hydroxide/Magnesium Hydroxide/Simethicone Susp 30 ML Cup PO PRN (03:00)
[2018-08-02] MEDS ORDERED: Ondansetron 4 MG/2 ML SDV IVPUSH PRN (03:00)
[2018-08-02] MEDS ORDERED: Calcium Carbonate 500 MG Tab.Chew PO PRN (03:00)
[2018-08-02] MEDS ORDERED: Magnesium Hydroxide 400 MG/5 ML Susp 30 ML Cup PO PRN (03:00)
[2018-08-02] MEDS: HYDROmorphone 1 MG/ML Syringe IV PRN ×2 (03:10→08:17)
[2018-08-02] MEDS ORDERED: Pantoprazole 40 MG Vial ONE (03:20)
[2018-08-02] MEDS ORDERED: LORazepam 2 MG/ML SDV ONE ×3 (03:29→10:20)
[2018-08-02] MEDS ORDERED: Pantoprazole 40 MG Vial IV ONE (03:30)
[2018-08-02] MEDS: LORazepam 2 MG/ML SDV IVPUSH PRN ×3 (03:32→10:29)
[2018-08-02] MEDS ORDERED: Ondansetron 4 MG/2 ML SDV ONE (03:50)
[2018-08-02] MEDS: Sodium Chloride 0.9% 1,000 ML IV SCH ×3 (04:40→20:20)
[2018-08-02] MEDS ORDERED: Pantoprazole 40 MG Vial IV SCH (07:30)
[2018-08-02] MEDS ORDERED: HYDROmorphone 1 MG/ML Syringe IV ONE (08:45)
[2018-08-02] MEDS ORDERED: Naloxone 0.4 MG/ML SDV IV PRN (09:40)
[2018-08-02] MEDS ORDERED: Acetaminophen 650 MG Supp RECTAL PRN (09:46)
[2018-08-02] MEDS ORDERED: Docusate Sodium 100 MG Cap PO PRN (09:47)
[2018-08-02] MEDS: HYDROmorphone/Normal Saline 15 MG/30 ML PCA IV PRN (10:00)
[2018-08-02] MEDS ORDERED: Ondansetron 4 MG Tab.DIS PO PRN (10:33)
[2018-08-02] MEDS ORDERED: Polyethylene Glycol 3350 Powder 17 GM Packet PO PRN (10:33)
[2018-08-02] MEDS ORDERED: Albuterol 0.083% 2.5 MG/3 ML Neb Soln NEB PRN (10:33)
--- NOTE | 2018-08-02 10:39 | PCM.PN ---
- General Info Date of Service: 08/02/18 Subjective Update: Since admission the patient reports suboptimally-controlled abdominal pain. This is mostly in the left upper quadrant. He has also become tremulous and appears to be hallucinating and was noted to be talking to the wall earlier this morning. CIWA scores have been 14 or greater on the last 2 checks and he has received 2 doses of lorazepam. He also had an episode of coffee-ground emesis this morning. He was transferred to the intensive care unit for management of alcohol withdrawal with delirium as well as a possible GI bleed with coffee-ground emesis. Functional Status: Denies: Pain Controlled - Review of Systems General: Denies: Fever Gastrointestinal: Reports: Abdominal Pain, Nausea - Patient Data Weight - Most Recent: 73.482 kg I&O - Last 24 Hours: Intake & Output 08/01/18 08/02/18 08/02/18 22:59 06:59 14:59 Output Total 150 Balance -150 Med Orders - Current: Current Medications Acetaminophen (Tylenol) 650 mg PO Q4H PRN PRN Reason: ANALGESIA/FEVER Acetaminophen (Tylenol) 650 mg RECTAL Q4H PRN PRN Reason: ANALGESIA/FEVER Al Hydroxide/Mg Hydroxide (Mag-Al Plus) 30 ml PO Q4H PRN PRN Reason: DYSPEPSIA Albuterol (Proventil Neb Soln) 2.5 mg NEB Q4H PRN PRN Reason: Shortness Of Breath/wheezing Bisacodyl (Dulcolax) 10 mg RECTAL DAILY PRN PRN Reason: CONSTIPATION Calcium Carbonate/Glycine (Tums) 500 - 1,000 mg PO Q4H PRN PRN Reason: DYSPEPSIA Diphenhydramine HCl (Benadryl) 25 mg PO Q4H PRN PRN Reason: ITCHING/ANXIETY Docusate Sodium (Colace) 100 mg PO DAILY PRN PRN Reason: CONSTIPATION Gabapentin (Neurontin) 400 mg PO TID [facility] Hydromorphone HCl (Dilaudid Senior Clinical Data Coordinator 15 Mg In Ns 30 Ml) 0 mg IV ASDIRECTED PRN; Protocol PRN Reason: PRODUCTION TRAINER PAIN CONTROL Sodium Chloride (Normal Saline) 1,000 mls @ 125 mls/hr IV ASDIRECTED RAFAT Last Admin: 08/02/18 04:40 Dose: 125 mls/hr Pantoprazole Sodium 80 mg/ (Sodium Chloride) 100 mls @ 10 mls/hr IV .Q10H RAFAT Lorazepam (Ativan) 1 mg IVPUSH Q2H PRN PRN Reason: AGITATION Last Admin: 08/02/18 10:29 Dose: 1 mg Lorazepam (Ativan) 0 mg IV ASDIRECTED RAFAT; Protocol Lorazepam (Ativan) 0 mg PO ASDIRECTED RAFAT; Protocol Magnesium Hydroxide (Milk Of Magnesia) 30 ml PO BID PRN PRN Reason: CONSTIPATION Melatonin (Melatonin) 9 mg PO BEDTIME RAFAT Naloxone HCl (Narcan) 0.1 mg IV ASDIRECTED PRN PRN Reason: decreased respiratory rate Ondansetron HCl (Zofran) 4 mg IVPUSH Q8H PRN PRN Reason: Nausea Last Admin: 08/02/18 03:50 Dose: 4 mg Ondansetron HCl (Zofran Odt) 4 mg PO Q6H PRN PRN Reason: Nausea able to take PO Pantoprazole Sodium (Protonix Iv) 40 mg IV Q24H [facility] Polyethylene Glycol (Miralax) 17 gm PO DAILY PRN PRN Reason: Constipation Thiamine HCl (Vitamin B-1) 100 mg PO DAILY [facility] Discontinued Medications Hydromorphone HCl (Dilaudid) 1 mg IV NOW ONE Stop: 08/02/18 08:46 Hydromorphone HCl (Dilaudid) 1 mg IV Q2H PRN PRN Reason: PAIN Stop: 08/02/18 08:40 Last Admin: 08/02/18 08:17 Dose: 1 mg Multivitamins/Minerals 10 ml/Magnesium Sulfate 2 gm/ Folic Acid 1 mg/ Thiamine HCl 100 mg / Sodium Chloride 1,015.2 mls @ 1,000 mls/hr IV ONETIME ONE Stop: 08/02/18 03:10 Pantoprazole Sodium (Protonix Iv) 40 mg IV ONETIME ONE Stop: 08/02/18 03:31 Last Admin: 08/02/18 03:22 Dose: 40 mg - Exam Quality Assessment: No: Supplemental Oxygen General: Alert, Oriented, Cooperative, Mild Distress HEENT: Pupils Equal Neck: Supple Lungs: Clear to Auscultation, Normal Respiratory Effort Cardiovascular: Regular Rate, Regular Rhythm GI/Abdominal Exam: Soft, No Distention, Tender, Abnormal Bowel Sounds ( hypoactive) Extremities: No Pedal Edema. No: Increased Warmth Skin: Warm, Dry Psy/Mental Status: Alert, Anxious - Problem List Review Problem List Initiated/Reviewed/Updated: Yes - My Orders Last 24 Hours: My Active Orders 08/02/18 09:40 HYDROmorphone/Normal Saline [Dilaudid PRODUCTION TRAINER 15 MG in NS 30 ML] 0 mg IV ASDIRECTED PRN Naloxone [Narcan] 0.1 mg IV ASDIRECTED PRN 08/02/18 10:28 Transfer Patient (Change bed) [ADT] Routine 08/02/18 10:29 CIWAA Assessment [RC] Q1H Notify Provider [RC] PRN 08/02/18 10:30 LORazepam [Ativan] See Protocol IV ASDIRECTED LORazepam [Ativan] See Protocol PO ASDIRECTED 08/02/18 10:32 Antiembolic Devices [RC] .Routine Notify Provider Consults [RC] ASDIRECTED Vital Signs [RC] Q1H Consult to Physician [CONS] Routine SCD [Sequential Compression Device] [OM.PC] Routine 08/02/18 10:33 Bedrest Bedside Commode [RC] ASDIRECTED Albuterol [Proventil Neb Soln] 2.5 mg NEB Q4H PRN Ondansetron [Zofran ODT] 4 mg PO Q6H PRN Polyethylene Glycol 3350 [MiraLAX] 17 gm PO DAILY PRN VTE Pharmacological Contraindications [AST] Per Unit Routine Resuscitation Status Routine 08/02/18 10:34 Cardiac Monitoring [RC] CONTINUOUS Intake and Output [RC] QSHIFT Oxygen Therapy [RC] PRN Pulse Oximetry [RC] CONTINUOUS VTE/DVT Education [RC] Per Unit Routine 08/02/18 10:35 RT Aerosol Therapy [RC] ASDIRECTED 08/02/18 10:45 Sodium Chloride 0.9% [Normal Saline] 100 ml Pantoprazole [ProTONIX IV] 80 mg IV 10 mls/hr 08/02/18 14:00 Gabapentin [Neurontin] 400 mg PO TID 08/02/18 21:00 Melatonin 9 mg PO BEDTIME 08/02/18 Lunch NPO [Nothing Per Oral Diet] [DIET] 08/03/18 05:00 CBC W/O DIFF,HEMOGRAM [HEME] Timed (1) COMPREHENSIVE METABOLIC PN,CMP [CHEM] Timed LIPASE [CHEM] Timed - Plan Plan:: ASSESSMENT AND PLAN - Acute alcoholic induced pancreatitis - lipase level greater than 3000 this morning. Patient has uncontrolled abdominal pain at this time. History of similar and was discharged just a week ago from [facility] where he was treated for the same thing. He does not seem interested in quitting alcohol at this time. Vitals are currently stable. -Nothing by mouth status -IV fluids -Pain control with the PRODUCTION TRAINER -PPI as below -Nausea management as indicated Alcohol withdrawal with delirium - long history of alcohol abuse. Patient does not seem interested in cessation at this time. He has been through treatment several times. He is tremulous and hallucinating at this time. -CIWA every hour -Lorazepam alcohol withdrawal protocol -Gabapentin 400 mg 3 times a day -Melatonin at bedtime -Thiamine and folate daily -Encourage cessation once more stable after the alcohol withdrawal Possible gastrointestinal hemorrhage - episode of coffee-ground emesis this morning. History of alcoholic gastritis and gastrointestinal bleeding in the past. -Protonix infusion -Consult with Dr. Dukes for EGD in the morning -Repeat hemoglobin this evening Maintenance issues - - DVT prophylaxis - mechanical with possible active hemorrhage - GI prophylaxis - PPI - Nutrition - nothing by mouth - [place] catheter - not indicated Disposition - I would anticipate discharge home after the hospital stay Primary care physician - Kimberly Vega - Delfin Prado M.D.
[2018-08-02] MEDS: Sodium Chloride 0.9% 100 ML with Pantoprazole 80 MG IV SCH ×4 (11:26→20:03)
[2018-08-02] MEDS: Thiamine 100 MG Tab PO SCH (11:27)
[2018-08-02] MEDS: LORazepam 2 MG/ML SDV IV SCH ×6 (11:44→23:14)
[2018-08-02] MEDS: Gabapentin 400 MG Cap PO SCH ×2 (15:10→20:18)
[2018-08-02] MEDS: Melatonin 3 MG Tab PO SCH (20:18)
[2018-08-03] MEDS: LORazepam 2 MG/ML SDV IV SCH ×8 (00:34→22:58)
[2018-08-03] MEDS: Haloperidol Lactate 5 MG/ML SDV IVPUSH PRN ×3 (04:13→22:57)
[2018-08-03] MEDS: Sodium Chloride 0.9% 1,000 ML IV SCH ×3 (04:19→20:43)
[2018-08-03] MEDS: Sodium Chloride 0.9% 100 ML with Pantoprazole 80 MG IV SCH ×2 (06:27)
[2018-08-03] MEDS ORDERED: Pantoprazole 40 MG Vial IV SCH (07:30)
--- NOTE | 2018-08-03 09:22 | PCM.PN ---
- General Info Date of Service: 08/03/18 Subjective Update: Mr. Ortega is a 53-year-old gentleman who was admitted with recurrent alcoholic pancreatitis and now has developed full-blown alcohol withdrawal. He has been receiving lorazepam via withdrawal protocol. This morning he is mildly agitated and sedated. Unable to answer specific questions concerning symptoms or review of systems because of alcohol withdrawal and sedation. - Patient Data Vitals - Most Recent: Last Vital Signs Temp 97.9 F 08/03/18 07:00 Pulse 74 08/03/18 07:00 Resp 11 L 08/03/18 08:00 BP 124/77 08/03/18 08:00 Pulse Ox 97 08/03/18 08:35 Weight - Most Recent: 162 lb 0.001 oz I&O - Last 24 Hours: Intake & Output 08/02/18 08/03/18 08/03/18 22:59 06:59 14:59 Intake Total 1693 1609 Output Total 450 300 400 Balance 1243 1309 -400 Lab Results Last 24 Hours: Laboratory Results - last 24 hr 08/02/18 08/02/18 08/02/18 Range/Units 01:00 01:00 01:00 WBC 5.3 (4.5-11.0) K/uL RBC 3.81 L (4.30-5.90) M/uL Hgb 12.4 D (12.0-15.0) g/dL Hct 36.7 L (40.0-54.0) % MCV 96 (80-98) fL MCH 33 H (27-31) pg MCHC 34 (32-36) % Plt Count 380 (150-400) K/uL Neut % (Auto) (36-66) % Lymph % (Auto) (24-44) % [place] % (Auto) (2-6) % Eos % (Auto) (2-4) % Baso % (Auto) (0-1) % Sodium 144 (140-148) mmol/L Potassium 4.1 (3.6-5.2) mmol/L Chloride 104 (100-108) mmol/L Carbon Dioxide 29 (21-32) mmol/L Anion Gap 10.9 (5.0-14.0) mmol/L BUN 9 (7-18) mg/dL Creatinine 0.6 L (0.8-1.3) mg/dL Est Cr Clr Drug Dosing 144.58 mL/min Estimated GFR (MDRD) > 60 (>60) Glucose 99 (74-106) mg/dL Calcium 8.8 (8.5-10.1) mg/dL Total Bilirubin 0.3 (0.2-1.0) mg/dL AST 120 H (15-37) U/L ALT 202 H (12-78) U/L Alkaline Phosphatase 213 H (46-116) U/L Total Protein 7.7 (6.4-8.2) g/dL Albumin 3.7 (3.4-5.0) g/dL Globulin 4.0 H (2.3-3.5) g/dL Albumin/Globulin Ratio 0.9 L (1.2-2.2) Amylase 162 H D (25-115) U/L Lipase 2183 H (73-393) U/L Ethyl Alcohol mg/dL 08/02/18 08/02/18 08/02/18 Range/Units 01:00 05:00 05:00 WBC 9.3 (4.5-11.0) K/uL RBC 3.47 L (4.30-5.90) M/uL Hgb 11.5 L (12.0-15.0) g/dL Hct 34.1 L (40.0-54.0) % MCV 98 (80-98) fL MCH 33 H (27-31) pg MCHC 34 (32-36) % Plt Count 348 (150-400) K/uL Neut % (Auto) 50 (36-66) % Lymph % (Auto) 30 (24-44) % Dorado % (Auto) 15 H (2-6) % Eos % (Auto) 4 (2-4) % Baso % (Auto) 1 (0-1) % Sodium 143 (140-148) mmol/L Potassium 3.8 (3.6-5.2) mmol/L Chloride 107 (100-108) mmol/L Carbon Dioxide 27 (21-32) mmol/L Anion Gap 9.5 (5.0-14.0) mmol/L BUN 9 (7-18) mg/dL Creatinine 0.5 L (0.8-1.3) mg/dL Est Cr Clr Drug Dosing 173.50 mL/min Estimated GFR (MDRD) > 60 (>60) Glucose 108 H (74-106) mg/dL Calcium 8.0 L (8.5-10.1) mg/dL Total Bilirubin (0.2-1.0) mg/dL AST (15-37) U/L ALT (12-78) U/L Alkaline Phosphatase (46-116) U/L Total Protein (6.4-8.2) g/dL Albumin (3.4-5.0) g/dL Globulin (2.3-3.5) g/dL Albumin/Globulin Ratio (1.2-2.2) Amylase (25-115) U/L Lipase 3304 H (73-393) U/L Ethyl Alcohol 330 mg/dL 08/02/18 08/03/18 08/03/18 Range/Units 16:00 05:04 05:04 WBC 6.0 (4.5-11.0) K/uL RBC 3.35 L (4.30-5.90) M/uL Hgb 11.9 L 10.9 L (12.0-15.0) g/dL Hct 33.8 L (40.0-54.0) % MCV 101 H (80-98) fL MCH 33 H (27-31) pg MCHC 32 (32-36) % Plt Count 284 (150-400) K/uL Neut % (Auto) (36-66) % Lymph % (Auto) (24-44) % [place] % (Auto) (2-6) % Eos % (Auto) (2-4) % Baso % (Auto) (0-1) % Sodium 141 (140-148) mmol/L Potassium 4.0 (3.6-5.2) mmol/L Chloride 104 (100-108) mmol/L Carbon Dioxide 26 (21-32) mmol/L Anion Gap 11.5 (5.0-14.0) mmol/L BUN 8 (7-18) mg/dL Creatinine 0.6 L (0.8-1.3) mg/dL Est Cr Clr Drug Dosing 144.58 mL/min Estimated GFR (MDRD) > 60 (>60) Glucose 80 (74-106) mg/dL Calcium 7.6 L (8.5-10.1) mg/dL Total Bilirubin 0.9 D (0.2-1.0) mg/dL AST 79 H (15-37) U/L ALT 153 H (12-78) U/L Alkaline Phosphatase 203 H (46-116) U/L Total Protein 6.1 L (6.4-8.2) g/dL Albumin 2.8 L (3.4-5.0) g/dL Globulin 3.3 (2.3-3.5) g/dL Albumin/Globulin Ratio 0.9 L (1.2-2.2) Amylase (25-115) U/L Lipase 345 (73-393) U/L Ethyl Alcohol mg/dL Med Orders - Current: Current Medications Acetaminophen (Tylenol) 650 mg PO Q4H PRN PRN Reason: ANALGESIA/FEVER Acetaminophen (Tylenol) 650 mg RECTAL Q4H PRN PRN Reason: ANALGESIA/FEVER Al Hydroxide/Mg Hydroxide (Mag-Al Plus) 30 ml PO Q4H PRN PRN Reason: DYSPEPSIA Albuterol (Proventil Neb Soln) 2.5 mg NEB Q4H PRN PRN Reason: Shortness Of Breath/wheezing Bisacodyl (Dulcolax) 10 mg RECTAL DAILY PRN PRN Reason: CONSTIPATION Calcium Carbonate/Glycine (Tums) 500 - 1,000 mg PO Q4H PRN PRN Reason: DYSPEPSIA Diphenhydramine HCl (Benadryl) 25 mg PO Q4H PRN PRN Reason: ITCHING/ANXIETY Docusate Sodium (Colace) 100 mg PO DAILY PRN PRN Reason: CONSTIPATION Gabapentin (Neurontin) 400 mg PO TID [facility] Last Admin: 08/02/18 20:18 Dose: 400 mg Haloperidol Lactate (Haldol) 2 mg IVPUSH Q4H PRN PRN Reason: Agitation Last Admin: 08/03/18 04:13 Dose: 2 mg Hydromorphone HCl (Dilaudid Pc Installation Engineer 15 Mg In Ns 30 Ml) 0 mg IV ASDIRECTED PRN; Protocol PRN Reason: PHOTOGRAPHY MANAGER PAIN CONTROL Last Admin: 08/02/18 10:00 Dose: 15 mg Sodium Chloride (Normal Saline) 1,000 mls @ 125 mls/hr IV ASDIRECTED RAFAT Last Admin: 08/03/18 04:19 Dose: 125 mls/hr Pantoprazole Sodium 80 mg/ (Sodium Chloride) 100 mls @ 10 mls/hr IV .Q10H RAFAT Last Admin: 08/03/18 06:27 Dose: 10 mls/hr Lorazepam (Ativan) 0 mg IV ASDIRECTED RAFAT; Protocol Last Admin: 08/03/18 07:24 Dose: 2 mg Lorazepam (Ativan) 0 mg PO ASDIRECTED RAFAT; Protocol Magnesium Hydroxide (Milk Of Magnesia) 30 ml PO BID PRN PRN Reason: CONSTIPATION Melatonin (Melatonin) 9 mg PO BEDTIME RAFAT Last Admin: 08/02/18 20:18 Dose: 9 mg Naloxone HCl (Narcan) 0.1 mg IV ASDIRECTED PRN PRN Reason: decreased respiratory rate Ondansetron HCl (Zofran) 4 mg IVPUSH Q8H PRN PRN Reason: Nausea Last Admin: 08/02/18 03:50 Dose: 4 mg Ondansetron HCl (Zofran Odt) 4 mg PO Q6H PRN PRN Reason: Nausea able to take PO Polyethylene Glycol (Miralax) 17 gm PO DAILY PRN PRN Reason: Constipation Sodium Chloride (Saline Flush) 10 ml FLUSH ASDIRECTED PRN PRN Reason: Keep Vein Open Thiamine HCl (Vitamin B-1) 100 mg PO DAILY [facility] Last Admin: 08/02/18 11:27 Dose: 100 mg Discontinued Medications Folic Acid (Folic Acid) Confirm Administered Dose 50 mg .ROUTE .STK-MED ONE Stop: 08/02/18 02:46 Last Admin: 08/02/18 15:03 Dose: Not Given Hydromorphone HCl (Dilaudid) 1 mg IV NOW ONE Stop: 08/02/18 08:46 Last Admin: 08/02/18 11:21 Dose: Not Given Hydromorphone HCl (Dilaudid) 1 mg IV Q2H PRN PRN Reason: PAIN Stop: 08/02/18 08:40 Last Admin: 08/02/18 08:17 Dose: 1 mg Hydromorphone HCl (Dilaudid) 1 mg IVPUSH ONETIME ONE Stop: 08/02/18 01:51 Last Admin: 08/02/18 01:50 Dose: 1 mg Hydromorphone HCl (Dilaudid) Confirm Administered Dose 1 mg .ROUTE .STK-MED ONE Stop: 08/02/18 01:48 Last Admin: 08/02/18 15:03 Dose: Not Given Hydromorphone HCl (Dilaudid) Confirm Administered Dose 1 mg .ROUTE .STK-MED ONE Stop: 08/02/18 03:05 Last Admin: 08/02/18 15:05 Dose: Not Given Hydromorphone HCl (Dilaudid) Confirm Administered Dose 1 mg .ROUTE .STK-MED ONE Stop: 08/02/18 08:19 Last Admin: 08/02/18 15:04 Dose: Not Given Multivitamins/Minerals 10 ml/Magnesium Sulfate 2 gm/ Folic Acid 1 mg/ Thiamine HCl 100 mg / Sodium Chloride 1,015.2 mls @ 1,000 mls/hr IV ONETIME ONE Stop: 08/02/18 03:10 Last Admin: 08/02/18 03:30 Dose: 1,000 mls/hr Sodium Chloride (Normal Saline) 250 mls @ 500 mls/hr IV ASDIRECTED RAFAT Last Admin: 08/02/18 01:40 Dose: 500 mls/hr Lorazepam (Ativan) 1 mg IVPUSH Q2H PRN PRN Reason: AGITATION Last Admin: 08/02/18 10:29 Dose: 1 mg Lorazepam (Ativan) Confirm Administered Dose 2 mg .ROUTE .STK-MED ONE Stop: 08/02/18 03:30 Last Admin: 08/02/18 15:06 Dose: Not Given Lorazepam (Ativan) Confirm Administered Dose 2 mg .ROUTE .STK-MED ONE Stop: 08/02/18 08:11 Last Admin: 08/02/18 15:07 Dose: Not Given Lorazepam (Ativan) Confirm Administered Dose 2 mg .ROUTE .STK-MED ONE Stop: 08/02/18 10:21 Last Admin: 08/02/18 15:07 Dose: Not Given Magnesium Sulfate (Magnesium Sulfate 50%) Confirm Administered Dose 2 gm .ROUTE .STK-MED ONE Stop: 08/02/18 02:46 Last Admin: 08/02/18 15:03 Dose: Not Given Multivitamins/Minerals (Infuvite Adult) Confirm Administered Dose 10 ml IV .STK- MED ONE Stop: 08/02/18 02:47 Last Admin: 08/02/18 15:04 Dose: Not Given Ondansetron HCl (Zofran) Confirm Administered Dose 4 mg .ROUTE .STK-MED ONE Stop: 08/02/18 03:51 Last Admin: 08/02/18 15:06 Dose: Not Given Pantoprazole Sodium (Protonix Iv) 40 mg IV ONETIME ONE Stop: 08/02/18 03:31 Last Admin: 08/02/18 03:22 Dose: 40 mg Pantoprazole Sodium (Protonix Iv) 40 mg IV Q24H RAFAT Last Admin: 08/03/18 07:20 Dose: Not Given Pantoprazole Sodium (Protonix Iv) Confirm Administered Dose 40 mg .ROUTE .STK -MED ONE Stop: 08/02/18 03:21 Last Admin: 08/02/18 15:05 Dose: Not Given Thiamine HCl (Vitamin B-1) Confirm Administered Dose 200 mg .ROUTE .STK-MED ONE Stop: 08/02/18 02:46 Last Admin: 08/02/18 15:04 Dose: Not Given - Exam Quality Assessment: DVT Prophylaxis General: Sedated, Lethargic Lungs: Clear to Auscultation, Normal Respiratory Effort Cardiovascular: Regular Rate, Regular Rhythm, No Murmurs GI/Abdominal Exam: Soft, No Organomegaly, Tender. No: Distended, Guarding, Rigid, Rebound Extremities: Non-Tender, No Pedal Edema - Problem List Review Problem List Initiated/Reviewed/Updated: Yes - My Orders Last 24 Hours: My Active Orders 08/04/18 05:00 CBC WITH AUTO DIFF [HEME] Timed COMPREHENSIVE METABOLIC PN,CMP [CHEM] Timed LIPASE [CHEM] Timed - Plan Plan:: ASSESSMENT AND PLAN - Acute alcoholic induced pancreatitis - lipase level this morning is within normal range, continues to experience tenderness in the supraumbilical region of the abdomen -Initiate diet after EGD this morning -Decrease IV fluids after EGD -Pain control with the PHOTOGRAPHY MANAGER -PPI as below -Nausea management as indicated Alcohol withdrawal with delirium - long history of alcohol abuse. Patient does not seem interested in cessation at this time. He has been through treatment several times. He is tremulous and hallucinating at this time. -CIWA every hour -Lorazepam alcohol withdrawal protocol -Gabapentin 400 mg 3 times a day -Melatonin at bedtime -Thiamine and folate daily -Encourage cessation once more stable after the alcohol withdrawal Possible gastrointestinal hemorrhage - episode of coffee-ground emesis yesterday morning, previous history of alcoholic gastritis and associated hemorrhage. Hemoglobin level has been stable with no evidence of ongoing bleeding. -Protonix infusion -Consult with Dr. Dukes for EGD today Maintenance issues - - DVT prophylaxis - mechanical with possible active hemorrhage - GI prophylaxis - PPI - Nutrition - nothing by mouth - [place] catheter - not indicated Disposition - I would anticipate discharge home after the hospital stay Primary care physician - Kimberly Kathleen
[2018-08-03] MEDS: Gabapentin 400 MG Cap PO SCH ×3 (11:06→20:10)
[2018-08-03] MEDS ORDERED: fentaNYL 100 MCG/2 ML SDV ONE (12:20)
[2018-08-03] MEDS ORDERED: Propofol 200 MG/20 ML SDV ONE (12:20)
[2018-08-03] MEDS ORDERED: Midazolam 1 MG/ML 2 ML SDV ONE (12:20)
[2018-08-03] MEDS: Thiamine 100 MG Tab PO SCH (13:46)
[2018-08-03] MEDS: HYDROmorphone/Normal Saline 15 MG/30 ML PCA IV PRN (13:56)
[2018-08-03] MEDS ORDERED: Sodium Chloride 0.9% 1,000 ML IV SCH (14:45)
[2018-08-03] MEDS: Acetaminophen 325 MG Tab PO PRN (15:49)
[2018-08-03] MEDS: Pantoprazole 40 MG Vial IVPUSH SCH (16:49)
[2018-08-03] MEDS: Piperacillin/Tazobactam/Dext 3.375 GM in Premix Bag 1 BAG IV SCH ×2 (17:13→22:57)
--- NOTE | 2018-08-03 17:17 | CRLCR ---
INDICATION: Fever. TECHNIQUE: Portable upright AP view of the chest. COMPARISON: No prior radiographs. Images of the lower chest from a CT of the abdomen and pelvis on 07/16/2018. FINDINGS: Cardiac, mediastinal and hilar contours are within normal limits. Normal pulmonary vasculature. There is dense airspace disease seen in the left lung base, which was not present on the recent CT of the abdomen and pelvis. This likely related to pneumonia. No appreciable pleural fluid on this single view study. No pneumothorax. IMPRESSION: Left basilar pneumonia. Dictated by Sagar Mai MD @ 08/03/2018 5:15:42 PM Dictated by: Sagar Mai MD @ 08/03/2018 17:15:55 (Electronically Signed)
--- NOTE | 2018-08-03 17:26 | PCM.SN ---
- Free Text/Narrative Note: Mr. Ortega developed significant temperature elevation this afternoon with associated hypoxia and sinus tachycardia. He is remained in alcohol withdrawal and required ongoing management with use of lorazepam. He has required increased level of supplemental oxygen to maintain adequate oxygenation. Laboratory studies were obtained, white blood cell count remains normal. Arterial blood gases show evidence of hypoxia. Respiratory rate remains within stable range. On physical examination there are inspiratory rales with few rhonchi noted at the left base lungs are otherwise clear. He has a mild sinus tachycardia no murmurs or other abnormalities noted on cardiac exam. Chest x- ray shows evidence of a left lower lobe infiltrate. Impression; Community-acquired pneumonia, he is within 48 hours of admission, so he does not meet criteria for healthcare associated pneumonia. -Blood cultures pending -Supplemental oxygen as needed to maintain adequate oxygenation -In about a therapy with Zosyn and levofloxacin, pending culture results
[2018-08-03] MEDS ORDERED: methylPREDNISolone Sodium Succinate 125 MG/2 ML SDV IVPUSH ONE (17:30)
[2018-08-03] MEDS: Ibuprofen 400 MG Tab PO PRN (20:10)
[2018-08-03] MEDS: Melatonin 3 MG Tab PO SCH (20:10)
[2018-08-03] MEDS: Lactobacillus Rhamnosus GG (Probiotic) Cap PO SCH ×2 (20:11→21:15)
[2018-08-03] MEDS: methylPREDNISolone Sodium Succinate 40 MG/1 ML SDV IVPUSH SCH (23:00)
[2018-08-04] MEDS: LORazepam 2 MG/ML SDV IV SCH ×16 (00:15→20:12)
[2018-08-04] MEDS: Haloperidol Lactate 5 MG/ML SDV IVPUSH PRN ×5 (03:56→22:18)
[2018-08-04] MEDS: Piperacillin/Tazobactam/Dext 3.375 GM in Premix Bag 1 BAG IV SCH ×4 (04:04→22:21)
[2018-08-04] MEDS: Pantoprazole 40 MG Vial IVPUSH SCH (04:04)
[2018-08-04] MEDS: methylPREDNISolone Sodium Succinate 40 MG/1 ML SDV IVPUSH SCH (04:04)
[2018-08-04] MEDS: Sodium Chloride 0.9% 1,000 ML IV SCH ×2 (04:07→16:46)
[2018-08-04] MEDS: Gabapentin 400 MG Cap PO SCH ×3 (08:45→20:13)
[2018-08-04] MEDS: Lactobacillus Rhamnosus GG (Probiotic) Cap PO SCH ×2 (08:45→20:13)
[2018-08-04] MEDS: Thiamine 100 MG Tab PO SCH (08:45)
--- NOTE | 2018-08-04 10:08 | PCM.PN ---
- General Info Date of Service: 08/04/18 Subjective Update: Mr. Ortega continues to experience agitation related to his alcohol withdrawal. Developed temperature elevation yesterday and was found to have a left lung pneumonia consistent with community-acquired. Blood cultures are been obtained and he was started on IV antibiotic therapy. He is also developed difficulty with urinary retention, urinating frequency small amounts. Because of agitation and confusion he is unable to provide significant information concerning symptoms or review of systems. - Patient Data Vitals - Most Recent: Last Vital Signs Temp 98 F 08/04/18 09:00 Pulse 102 H 08/04/18 09:00 Resp 21 H 08/04/18 09:00 BP 119/75 08/04/18 09:00 Pulse Ox 95 08/04/18 09:00 Weight - Most Recent: 162 lb 0.001 oz I&O - Last 24 Hours: Intake & Output 08/03/18 08/04/18 08/04/18 22:59 06:59 14:59 Intake Total 101 1642 Output Total 1475 1050 250 Balance -1374 592 -250 Lab Results Last 24 Hours: Laboratory Results - last 24 hr 08/03/18 08/03/18 08/03/18 Range/Units 16:30 16:30 16:30 WBC 9.0 (4.5-11.0) K/uL RBC 3.51 L (4.30-5.90) M/uL Hgb 11.4 L (12.0-15.0) g/dL Hct 35.1 L (40.0-54.0) % MCV 100 H (80-98) fL MCH 33 H (27-31) pg MCHC 33 (32-36) % Plt Count 276 (150-400) K/uL Neut % (Auto) 87 H (36-66) % Lymph % (Auto) 10 L (24-44) % Sherman % (Auto) 3 (2-6) % Eos % (Auto) 1 L (2-4) % Baso % (Auto) 0 (0-1) % Puncture Site Rt radial ABG pH 7.380 (7.350-7.450) ABG pCO2 40.7 (35.0-42.0) mmHg ABG pO2 56.4 L (75.0-100.0) mmHg ABG HCO3 23.5 (22.0-26.0) mmol/L ABG Total CO2 21.0 L (23.0-27.0) mmol/L ABG O2 Saturation 88.9 L (95.0-98.0) % ABG O2 Content 16.8 (15.0-23.0) %vol ABG Base Excess -1.0 mm/L ABG Hemoglobin 13.7 (13.5-18.0) g/dL ABG Oxyhemoglobin 87.4 % ABG Carboxyhemoglobin 0.9 (0.0-1.6) % ABG Methemoglobin 0.8 % Jesse Test Passed O2 Delivery Device Nasal cannula Oxygen Flow Rate 3 L Sodium 137 L (140-148) mmol/L Potassium 4.0 (3.6-5.2) mmol/L Chloride 98 L (100-108) mmol/L Carbon Dioxide 27 (21-32) mmol/L Anion Gap 16.0 H (5.0-14.0) mmol/L BUN 6 L (7-18) mg/dL Creatinine 0.7 L (0.8-1.3) mg/dL Est Cr Clr Drug Dosing 123.93 mL/min Estimated GFR (MDRD) > 60 (>60) Glucose 102 (74-106) mg/dL Calcium 8.2 L (8.5-10.1) mg/dL Total Bilirubin (0.2-1.0) mg/dL AST (15-37) U/L ALT (12-78) U/L Alkaline Phosphatase (46-116) U/L Total Protein (6.4-8.2) g/dL Albumin (3.4-5.0) g/dL Globulin (2.3-3.5) g/dL Albumin/Globulin Ratio (1.2-2.2) Lipase (73-393) U/L Urine Color Urine Appearance Urine pH (4.5-8.0) Ur Specific Branson (1.008-1.030) Urine Protein (NEGATIVE) mg/dL Urine Glucose (UA) (NEGATIVE) mg/dL Urine Ketones (NEGATIVE) mg/dL Urine Occult Blood (NEGATIVE) Urine Nitrite (NEGAITVE) Urine Bilirubin (NEGATIVE) Urine Urobilinogen (NORMAL) mg/dL Ur Leukocyte Esterase (NEGATIVE) Urine RBC (0-5) Urine WBC (0-5) Ur Epithelial Cells Amorphous Sediment Urine Bacteria Urine Mucus 08/03/18 08/04/18 08/04/18 Range/Units 16:30 04:00 04:00 WBC 16.4 H (4.5-11.0) K/uL RBC 3.48 L (4.30-5.90) M/uL Hgb 11.2 L (12.0-15.0) g/dL Hct 33.6 L (40.0-54.0) % MCV 97 (80-98) fL MCH 32 H (27-31) pg MCHC 33 (32-36) % Plt Count 267 (150-400) K/uL Neut % (Auto) 95 H (36-66) % Lymph % (Auto) 3 L (24-44) % Sherman % (Auto) 3 (2-6) % Eos % (Auto) 0 L (2-4) % Baso % (Auto) 0 (0-1) % Puncture Site ABG pH (7.350-7.450) ABG pCO2 (35.0-42.0) mmHg ABG pO2 (75.0-100.0) mmHg ABG HCO3 (22.0-26.0) mmol/L ABG Total CO2 (23.0-27.0) mmol/L ABG O2 Saturation (95.0-98.0) % ABG O2 Content (15.0-23.0) %vol ABG Base Excess mm/L ABG Hemoglobin (13.5-18.0) g/dL ABG Oxyhemoglobin % ABG Carboxyhemoglobin (0.0-1.6) % ABG Methemoglobin % Jesse Test O2 Delivery Device Oxygen Flow Rate L Sodium 133 L (140-148) mmol/L Potassium 4.0 (3.6-5.2) mmol/L Chloride 96 L (100-108) mmol/L Carbon Dioxide 21 (21-32) mmol/L Anion Gap 20.0 H (5.0-14.0) mmol/L BUN 8 (7-18) mg/dL Creatinine 0.7 L (0.8-1.3) mg/dL Est Cr Clr Drug Dosing 123.93 mL/min Estimated GFR (MDRD) > 60 (>60) Glucose 196 H (74-106) mg/dL Calcium 8.5 (8.5-10.1) mg/dL Total Bilirubin 0.8 (0.2-1.0) mg/dL AST 71 H (15-37) U/L ALT 142 H (12-78) U/L Alkaline Phosphatase 167 H (46-116) U/L Total Protein 6.7 (6.4-8.2) g/dL Albumin 3.0 L (3.4-5.0) g/dL Globulin 3.7 H (2.3-3.5) g/dL Albumin/Globulin Ratio 0.8 L (1.2-2.2) Lipase 142 (73-393) U/L Urine Color Yellow Urine Appearance Clear Urine pH 5.0 (4.5-8.0) Ur Specific Branson 1.015 (1.008-1.030) Urine Protein Negative (NEGATIVE) mg/dL Urine Glucose (UA) Normal (NEGATIVE) mg/dL Urine Ketones 50 H (NEGATIVE) mg/dL Urine Occult Blood Negative (NEGATIVE) Urine Nitrite Negative (NEGAITVE) Urine Bilirubin Negative (NEGATIVE) Urine Urobilinogen Normal (NORMAL) mg/dL Ur Leukocyte Esterase Small (NEGATIVE) Urine RBC Not seen (0-5) Urine WBC 0-5 (0-5) Ur Epithelial Cells Not seen Amorphous Sediment Few Urine Bacteria Not seen Urine Mucus Not seen Med Orders - Current: Current Medications Acetaminophen (Tylenol) 650 mg PO Q4H PRN PRN Reason: ANALGESIA/FEVER Last Admin: 08/03/18 15:49 Dose: 650 mg Acetaminophen (Tylenol) 650 mg RECTAL Q4H PRN PRN Reason: ANALGESIA/FEVER Al Hydroxide/Mg Hydroxide (Mag-Al Plus) 30 ml PO Q4H PRN PRN Reason: DYSPEPSIA Albuterol (Proventil Neb Soln) 2.5 mg NEB Q4H PRN PRN Reason: Shortness Of Breath/wheezing Bisacodyl (Dulcolax) 10 mg RECTAL DAILY PRN PRN Reason: CONSTIPATION Calcium Carbonate/Glycine (Tums) 500 - 1,000 mg PO Q4H PRN PRN Reason: DYSPEPSIA Diphenhydramine HCl (Benadryl) 25 mg PO Q4H PRN PRN Reason: ITCHING/ANXIETY Docusate Sodium (Colace) 100 mg PO DAILY PRN PRN Reason: CONSTIPATION Gabapentin (Neurontin) 400 mg PO TID [facility] Last Admin: 08/04/18 08:45 Dose: 400 mg Haloperidol Lactate (Haldol) 2 mg IVPUSH Q2H PRN PRN Reason: Agitation Piperacillin/Tazobactam/ (Dextrose 3.375 gm/ Premix) 50 mls @ 100 mls/hr IV Q6H [facility] Last Admin: 08/04/18 04:04 Dose: 100 mls/hr Sodium Chloride (Normal Saline) 1,000 mls @ 50 mls/hr IV ASDIRECTED [facility] Ibuprofen (Motrin) 400 mg PO Q6H PRN PRN Reason: Fever Last Admin: 08/03/18 20:10 Dose: 400 mg Lactobacillus Rhamnosus (Culturelle) 1 cap PO BID [facility] Last Admin: 08/04/18 08:45 Dose: 1 cap Lorazepam (Ativan) 0 mg IV ASDIRECTED [facility]; Protocol Last Admin: 08/04/18 09:46 Dose: 2 mg Lorazepam (Ativan) 0 mg PO ASDIRECTED [facility]; Protocol Magnesium Hydroxide (Milk Of Magnesia) 30 ml PO BID PRN PRN Reason: CONSTIPATION Melatonin (Melatonin) 9 mg PO BEDTIME [facility] Last Admin: 08/03/18 20:10 Dose: 9 mg Naloxone HCl (Narcan) 0.1 mg IV ASDIRECTED PRN PRN Reason: decreased respiratory rate Ondansetron HCl (Zofran) 4 mg IVPUSH Q8H PRN PRN Reason: Nausea Last Admin: 08/02/18 03:50 Dose: 4 mg Ondansetron HCl (Zofran Odt) 4 mg PO Q6H PRN PRN Reason: Nausea able to take PO Last Admin: 08/03/18 13:46 Dose: 4 mg Pantoprazole Sodium (Protonix Iv) 40 mg IVPUSH Q12H [facility] Last Admin: 08/04/18 04:04 Dose: 40 mg Polyethylene Glycol (Miralax) 17 gm PO DAILY PRN PRN Reason: Constipation Sodium Chloride (Saline Flush) 10 ml FLUSH ASDIRECTED PRN PRN Reason: Keep Vein Open Tamsulosin HCl (Flomax) 0.4 mg PO DAILY [facility] Thiamine HCl (Vitamin B-1) 100 mg PO DAILY [facility] Last Admin: 08/04/18 08:45 Dose: 100 mg Discontinued Medications Fentanyl (Sublimaze) Confirm Administered Dose 100 mcg .ROUTE .STK-MED ONE Stop: 08/03/18 12:21 Folic Acid (Folic Acid) Confirm Administered Dose 50 mg .ROUTE .STK-MED ONE Stop: 08/02/18 02:46 Last Admin: 08/02/18 15:03 Dose: Not Given Haloperidol Lactate (Haldol) 2 mg IVPUSH Q4H PRN PRN Reason: Agitation Last Admin: 08/04/18 08:40 Dose: 2 mg Hydromorphone HCl (Dilaudid Pattern Keeper 15 Mg In Ns 30 Ml) 0 mg IV ASDIRECTED PRN; Protocol PRN Reason: [employer]ES [employer]PARTMENT SUPERVISOR PAIN CONTROL Last Admin: 08/03/18 13:56 Dose: 15 mg Hydromorphone HCl (Dilaudid) 1 mg IV NOW ONE Stop: 08/02/18 08:46 Last Admin: 08/02/18 11:21 Dose: Not Given Hydromorphone HCl (Dilaudid) 1 mg IV Q2H PRN PRN Reason: PAIN Stop: 08/02/18 08:40 Last Admin: 08/02/18 08:17 Dose: 1 mg Hydromorphone HCl (Dilaudid) 1 mg IVPUSH ONETIME ONE Stop: 08/02/18 01:51 Last Admin: 08/02/18 01:50 Dose: 1 mg Hydromorphone HCl (Dilaudid) Confirm Administered Dose 1 mg .ROUTE .STK-MED ONE Stop: 08/02/18 01:48 Last Admin: 08/02/18 15:03 Dose: Not Given Hydromorphone HCl (Dilaudid) Confirm Administered Dose 1 mg .ROUTE .STK-MED ONE Stop: 08/02/18 03:05 Last Admin: 08/02/18 15:05 Dose: Not Given Hydromorphone HCl (Dilaudid) Confirm Administered Dose 1 mg .ROUTE .STK-MED ONE Stop: 08/02/18 08:19 Last Admin: 08/02/18 15:04 Dose: Not Given Sodium Chloride (Normal Saline) 1,000 mls @ 125 mls/hr IV ASDIRECTED [facility] Last Admin: 08/03/18 12:05 Dose: 125 mls/hr Multivitamins/Minerals 10 ml/Magnesium Sulfate 2 gm/ Folic Acid 1 mg/ Thiamine HCl 100 mg / Sodium Chloride 1,015.2 mls @ 1,000 mls/hr IV ONETIME ONE Stop: 08/02/18 03:10 Last Admin: 08/02/18 03:30 Dose: 1,000 mls/hr Pantoprazole Sodium 80 mg/ (Sodium Chloride) 100 mls @ 10 mls/hr IV .Q10H [facility] Last Admin: 08/03/18 06:27 Dose: 10 mls/hr Sodium Chloride (Normal Saline) 250 mls @ 500 mls/hr IV ASDIRECTED [facility] Last Admin: 08/02/18 01:40 Dose: 500 mls/hr Sodium Chloride (Normal Saline) 1,000 mls @ 50 mls/hr IV ASDIRECTED [facility] Sodium Chloride (Normal Saline) 1,000 mls @ 125 mls/hr IV ASDIRECTED [facility] Last Admin: 08/04/18 04:07 Dose: 125 mls/hr Lorazepam (Ativan) 1 mg IVPUSH Q2H PRN PRN Reason: AGITATION Last Admin: 08/02/18 10:29 Dose: 1 mg Lorazepam (Ativan) Confirm Administered Dose 2 mg .ROUTE .STK-MED ONE Stop: 08/02/18 03:30 Last Admin: 08/02/18 15:06 Dose: Not Given Lorazepam (Ativan) Confirm Administered Dose 2 mg .ROUTE .STK-MED ONE Stop: 08/02/18 08:11 Last Admin: 08/02/18 15:07 Dose: Not Given Lorazepam (Ativan) Confirm Administered Dose 2 mg .ROUTE .STK-MED ONE Stop: 08/02/18 10:21 Last Admin: 08/02/18 15:07 Dose: Not Given Magnesium Sulfate (Magnesium Sulfate 50%) Confirm Administered Dose 2 gm .ROUTE .STK-MED ONE Stop: 08/02/18 02:46 Last Admin: 08/02/18 15:03 Dose: Not Given Methylprednisolone Sodium Succinate (Solu-Medrol) 125 mg IVPUSH ONETIME ONE Stop: 08/03/18 17:31 Last Admin: 08/03/18 17:13 Dose: 125 mg Methylprednisolone Sodium Succinate (Solu-Medrol) 40 mg IVPUSH Q6H [facility] Last Admin: 08/04/18 04:04 Dose: 40 mg Midazolam HCl (Versed 1 Mg/Ml) Confirm Administered Dose 2 mg .ROUTE .STK-MED ONE Stop: 08/03/18 12:21 Multivitamins/Minerals (Infuvite Adult) Confirm Administered Dose 10 ml IV .STK- MED ONE Stop: 08/02/18 02:47 Last Admin: 08/02/18 15:04 Dose: Not Given Ondansetron HCl (Zofran) Confirm Administered Dose 4 mg .ROUTE .STK-MED ONE Stop: 08/02/18 03:51 Last Admin: 08/02/18 15:06 Dose: Not Given Pantoprazole Sodium (Protonix Iv) 40 mg IV ONETIME ONE Stop: 08/02/18 03:31 Last Admin: 08/02/18 03:22 Dose: 40 mg Pantoprazole Sodium (Protonix Iv) 40 mg IV Q24H [facility] Last Admin: 08/03/18 07:20 Dose: Not Given Pantoprazole Sodium (Protonix Iv) Confirm Administered Dose 40 mg .ROUTE .STK -MED ONE Stop: 08/02/18 03:21 Last Admin: 08/02/18 15:05 Dose: Not Given Propofol (Diprivan 20 Ml) Confirm Administered Dose 200 mg .ROUTE .STK-MED ONE Stop: 08/03/18 12:21 Thiamine HCl (Vitamin B-1) Confirm Administered Dose 200 mg .ROUTE .STK-MED ONE Stop: 08/02/18 02:46 Last Admin: 08/02/18 15:04 Dose: Not Given - Exam General: Sedated Lungs: Clear to Auscultation, Normal Respiratory Effort Cardiovascular: Regular Rate, Regular Rhythm, No Murmurs GI/Abdominal Exam: Soft, Non-Tender, No Organomegaly, No Distention Extremities: Non-Tender, No Pedal Edema Psy/Mental Status: Agitated - Problem List Review Problem List Initiated/Reviewed/Updated: Yes - My Orders Last 24 Hours: My Active Orders 08/03/18 16:00 Pantoprazole [ProTONIX IV] 40 mg IVPUSH Q12H 08/03/18 16:30 CULTURE BLOOD [BC] Stat Piperacillin/Tazobactam/Dext [Zosyn in Dextrose Iso-Osmotic 3.375 GM] 3.375 gm Premix Bag 1 bag IV Q6H Blood Culture x2 Reflex Set [OM.PC] Urgent 08/03/18 16:37 Ibuprofen [Motrin] 400 mg PO Q6H PRN 08/03/18 17:00 CULTURE BLOOD [BC] Stat 08/03/18 18:30 Lactobacillus Rhamnosus GG [Culturelle] 1 cap PO BID 08/03/18 Lunch Full Liquid Diet [DIET] 08/04/18 04:00 [place] Catheter Insertion [Insert Urinary Catheter] [OM.PC] Q24H 08/04/18 04:13 Urinary Catheter Assessment [RC] Q12H 08/04/18 09:59 Haloperidol Lactate [Haldol] 2 mg IVPUSH Q2H PRN 08/04/18 10:00 Sodium Chloride 0.9% @ 50 MLS/HR(1000ml) Sodium Chloride 0.9% [Normal Saline] 1 ,000 ml IV ASDIRECTED Tamsulosin [Flomax] 0.4 mg PO DAILY 08/05/18 05:00 CBC WITH AUTO DIFF [HEME] Timed COMPREHENSIVE METABOLIC PN,CMP [CHEM] Timed MAGNESIUM [CHEM] Timed - Plan Plan:: ASSESSMENT AND PLAN - Acute alcoholic induced pancreatitis - lipase level remains normal -Decrease IV fluids after EGD -Pain control with the SALES DEPARTMENT SUPERVISOR -PPI as below -Nausea management as indicated Alcohol withdrawal with delirium - long history of alcohol abuse. Patient does not seem interested in cessation at this time. He has been through treatment several times. He is tremulous and hallucinating at this time. -CIWA every hour -Lorazepam alcohol withdrawal protocol -Gabapentin 400 mg 3 times a day -Melatonin at bedtime -Thiamine and folate daily -Encourage cessation once more stable after the alcohol withdrawal Community-acquired pneumonia-developed temperature elevation yesterday, within 48 hours of admission. Chest x-ray shows evidence of a left lung infiltrate. -Blood cultures pending -Continue levofloxacin and Zosyn pending culture results Urinary retention-likely secondary to BPH -[place] catheter -Flomax 0.4 mg by mouth daily Possible gastrointestinal hemorrhage - episode of coffee-ground emesis yesterday morning, previous history of alcoholic gastritis and associated hemorrhage. Hemoglobin level has been stable with no evidence of ongoing bleeding. EGD performed yesterday showed no obvious source of active bleeding -Protonix infusion Maintenance issues - - DVT prophylaxis - mechanical with possible active hemorrhage - GI prophylaxis - PPI - Nutrition - nothing by mouth - Durham catheter - not indicated Disposition - I would anticipate discharge home after the hospital stay Primary care physician - Kimberly Vega - Delfin Kathleen
--- NOTE | 2018-08-04 12:59 | OR ---
DATE OF PROCEDURE: 08/03/2018 PREOPERATIVE DIAGNOSIS: Hematemesis. POSTOPERATIVE DIAGNOSIS: Hematemesis, etiology unknown. PROCEDURE: Esophagogastroduodenoscopy. SURGEON: Amos Dukes MD ANESTHESIA: IV anesthesia with monitored anesthesia care. INDICATION: This 53-year-old white male is in the hospital with pancreatitis. He is going through alcohol withdrawal. He did yesterday vomit some coffee-ground material. A request was made for upper endoscopy today. I counseled him for this, and he gave his informed consent to proceed. DESCRIPTION OF PROCEDURE: The patient was placed in the left lateral decubitus position. IV anesthesia was administered by the Anesthesia Service. Time-out was held. The flexible video Olympus upper endoscope was passed through his mouth, down his esophagus, and into his stomach. The scope was easily passed through the pylorus, into the duodenum, reaching its third portion. The scope was then slowly withdrawn, examining the mucosa throughout. At no point did we see any old or new blood anywhere in the upper gastrointestinal tract nor did we see anything that we would suspect to bleed. The duodenal mucosa appeared unremarkable. The scope was brought back through the pylorus into the antrum. The antrum appeared unremarkable. The scope was retroflexed. In the proximal stomach, we saw some mild erythematous streaking suggestive of mild gastritis. The scope was straightened and brought up to the GE junction. The Z-line was not straight, suggestive of gastroesophageal reflux disease. The scope was then removed. He tolerated the procedure well. Amos Dukes MD /[id number]
[2018-08-04] MEDS: Acetaminophen 325 MG Tab PO PRN (13:35)
[2018-08-04] MEDS ORDERED: Haloperidol Lactate 5 MG/ML SDV IVPUSH PRN (14:54)
[2018-08-04] MEDS: Tamsulosin 0.4 MG Cap.ER PO SCH (15:04)
[2018-08-04] MEDS ORDERED: Haloperidol Lactate 5 MG/ML SDV IVPUSH ONE (17:32)
[2018-08-04] MEDS: Melatonin 3 MG Tab PO SCH (20:12)
[2018-08-05] MEDS: Acetaminophen 325 MG Tab PO PRN ×2 (00:25→12:12)
[2018-08-05] MEDS: LORazepam 2 MG/ML SDV IV SCH ×19 (00:26→23:37)
[2018-08-05] MEDS: Haloperidol Lactate 5 MG/ML SDV IVPUSH PRN ×9 (02:03→22:21)
[2018-08-05] MEDS: Piperacillin/Tazobactam/Dext 3.375 GM in Premix Bag 1 BAG IV SCH ×5 (04:22→22:22)
[2018-08-05] MEDS ORDERED: Potassium Chloride 20 MEQ Tab.ER PO ONE ×2 (05:37→09:00)
[2018-08-05] MEDS: HYDROmorphone 0.5 MG/0.5 ML Syringe IVPUSH PRN ×3 (05:46→13:12)
[2018-08-05] MEDS: Pantoprazole 40 MG Tab.CR PO SCH (07:48)
[2018-08-05] MEDS: Lactobacillus Rhamnosus GG (Probiotic) Cap PO SCH ×2 (08:02→20:20)
[2018-08-05] MEDS: Tamsulosin 0.4 MG Cap.ER PO SCH (08:02)
[2018-08-05] MEDS: Gabapentin 400 MG Cap PO SCH ×3 (08:02→20:20)
[2018-08-05] MEDS: Thiamine 100 MG Tab PO SCH (08:02)
[2018-08-05] MEDS: Magnesium Sulfate/Water 2 GM in Premix Bag 1 BAG IV SCH ×3 (09:25→20:22)
--- NOTE | 2018-08-05 10:16 | PCM.PN ---
- General Info Date of Service: 08/05/18 Subjective Update: Mr. Ortega has improved modestly over the last 24 hours with less agitation. 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 Lipase level was obtained and is increased. He is now nothing by mouth and currently denies significant abdominal pain. Functional Status: Denies: Tolerating Diet, Urinating - Review of Systems General: Reports: Weakness. Denies: Fever, Chills Pulmonary: Reports: No Symptoms Cardiovascular: Reports: No Symptoms Gastrointestinal: Reports: No Symptoms Psychiatric: Reports: Agitation, Hallucinations - Patient Data Vitals - Most Recent: Last Vital Signs Temp 98.2 F 08/05/18 07:00 Pulse 61 08/05/18 09:00 Resp 16 08/05/18 09:00 BP 105/81 08/05/18 09:00 Pulse Ox 99 08/05/18 09:00 Weight - Most Recent: 162 lb 0.001 oz I&O - Last 24 Hours: Intake & Output 08/04/18 08/05/18 08/05/18 22:59 06:59 14:59 Intake Total 1454 624 Output Total 600 1225 75 Balance 854 -601 -75 Lab Results Last 24 Hours: Laboratory Results - last 24 hr 08/02/18 08/05/18 08/05/18 Range/Units 01:00 04:25 04:25 WBC 14.6 H (4.5-11.0) K/uL RBC 3.22 L (4.30-5.90) M/uL Hgb 10.5 L (12.0-15.0) g/dL Hct 30.5 L (40.0-54.0) % MCV 95 (80-98) fL MCH 33 H (27-31) pg MCHC 34 (32-36) % Plt Count 262 (150-400) K/uL Neut % (Auto) 86 H (36-66) % Lymph % (Auto) 7 L (24-44) % Worth % (Auto) 7 H (2-6) % Eos % (Auto) 0 L (2-4) % Baso % (Auto) 0 (0-1) % Sodium 138 L (140-148) mmol/L Potassium 3.3 L (3.6-5.2) mmol/L Chloride 104 (100-108) mmol/L Carbon Dioxide 25 (21-32) mmol/L Anion Gap 12.3 (5.0-14.0) mmol/L BUN 9 (7-18) mg/dL Creatinine 0.7 L (0.8-1.3) mg/dL Est Cr Clr Drug Dosing 123.93 mL/min Estimated GFR (MDRD) > 60 (>60) Glucose 183 H (74-106) mg/dL Calcium 8.3 L (8.5-10.1) mg/dL Magnesium 1.1 L (1.8-2.4) mg/dL Total Bilirubin 0.3 D (0.2-1.0) mg/dL AST 26 (15-37) U/L ALT 89 H (12-78) U/L Alkaline Phosphatase 114 (46-116) U/L Total Protein 5.9 L (6.4-8.2) g/dL Albumin 2.5 L (3.4-5.0) g/dL Globulin 3.4 (2.3-3.5) g/dL Albumin/Globulin Ratio 0.7 L (1.2-2.2) Amylase (25-115) U/L Lipase TNP 08/05/18 08/05/18 Range/Units 05:36 05:55 WBC (4.5-11.0) K/uL RBC (4.30-5.90) M/uL Hgb (12.0-15.0) g/dL Hct (40.0-54.0) % MCV (80-98) fL MCH (27-31) pg MCHC (32-36) % Plt Count (150-400) K/uL Neut % (Auto) (36-66) % Lymph % (Auto) (24-44) % Worth % (Auto) (2-6) % Eos % (Auto) (2-4) % Baso % (Auto) (0-1) % Sodium (140-148) mmol/L Potassium (3.6-5.2) mmol/L Chloride (100-108) mmol/L Carbon Dioxide (21-32) mmol/L Anion Gap (5.0-14.0) mmol/L BUN (7-18) mg/dL Creatinine (0.8-1.3) mg/dL Est Cr Clr Drug Dosing mL/min Estimated GFR (MDRD) (>60) Glucose (74-106) mg/dL Calcium (8.5-10.1) mg/dL Magnesium (1.8-2.4) mg/dL Total Bilirubin (0.2-1.0) mg/dL AST (15-37) U/L ALT (12-78) U/L Alkaline Phosphatase (46-116) U/L Total Protein (6.4-8.2) g/dL Albumin (3.4-5.0) g/dL Globulin (2.3-3.5) g/dL Albumin/Globulin Ratio (1.2-2.2) Amylase 66 D (25-115) U/L Lipase 515 H Lonnie Results Last 24 Hours: Microbiology 08/03/18 17:00 Aerobic Blood Culture - Preliminary Blood - Venous NO GROWTH AFTER 1 DAY Anaerobic Blood Culture - Preliminary NO GROWTH AFTER 1 DAY 08/03/18 16:30 Aerobic Blood Culture - Preliminary Blood - Venous - Lab Draw NO GROWTH AFTER 1 DAY Anaerobic Blood Culture - Preliminary NO GROWTH AFTER 1 DAY Med Orders - Current: Current Medications Acetaminophen (Tylenol) 650 mg PO Q4H PRN PRN Reason: ANALGESIA/FEVER Last Admin: 08/05/18 00:25 Dose: 650 mg Acetaminophen (Tylenol) 650 mg RECTAL Q4H PRN PRN Reason: ANALGESIA/FEVER Al Hydroxide/Mg Hydroxide (Mag-Al Plus) 30 ml PO Q4H PRN PRN Reason: DYSPEPSIA Albuterol (Proventil Neb Soln) 2.5 mg NEB Q4H PRN PRN Reason: Shortness Of Breath/wheezing Bisacodyl (Dulcolax) 10 mg RECTAL DAILY PRN PRN Reason: CONSTIPATION Calcium Carbonate/Glycine (Tums) 500 - 1,000 mg PO Q4H PRN PRN Reason: DYSPEPSIA Diphenhydramine HCl (Benadryl) 25 mg PO Q4H PRN PRN Reason: ITCHING/ANXIETY Docusate Sodium (Colace) 100 mg PO DAILY PRN PRN Reason: CONSTIPATION Gabapentin (Neurontin) 400 mg PO TID RAFAT Last Admin: 08/05/18 08:02 Dose: 400 mg Haloperidol Lactate (Haldol) 5 mg IVPUSH Q2H PRN PRN Reason: Agitation Last Admin: 08/05/18 08:43 Dose: 5 mg Hydromorphone HCl (Dilaudid) 0.5 mg IVPUSH Q2H PRN PRN Reason: Abdominal Pain Last Admin: 08/05/18 07:47 Dose: 0.5 mg Piperacillin/Tazobactam/ (Dextrose 3.375 gm/ Premix) 50 mls @ 100 mls/hr IV Q6H [facility] Last Admin: 08/05/18 04:22 Dose: 100 mls/hr Sodium Chloride (Normal Saline) 1,000 mls @ 50 mls/hr IV ASDIRECTED [facility] Last Admin: 08/04/18 16:46 Dose: 50 mls/hr Magnesium Sulfate 2 gm/ Premix 50 mls @ 25 mls/hr IV Q6H [facility] Stop: 08/06/18 04:59 Last Admin: 08/05/18 09:25 Dose: 25 mls/hr Sodium Chloride (Normal Saline) 1,000 mls @ 75 mls/hr IV ASDIRECTED [facility] Ibuprofen (Motrin) 400 mg PO Q6H PRN PRN Reason: Fever Last Admin: 08/03/18 20:10 Dose: 400 mg Lactobacillus Rhamnosus (Culturelle) 1 cap PO BID [facility] Last Admin: 08/05/18 08:02 Dose: 1 cap Lorazepam (Ativan) 0 mg IV ASDIRECTED [facility]; Protocol Last Admin: 08/05/18 09:07 Dose: 2 mg Lorazepam (Ativan) 0 mg PO ASDIRECTED [facility]; Protocol Magnesium Hydroxide (Milk Of Magnesia) 30 ml PO BID PRN PRN Reason: CONSTIPATION Melatonin (Melatonin) 9 mg PO BEDTIME [facility] Last Admin: 08/04/18 20:12 Dose: 9 mg Naloxone HCl (Narcan) 0.1 mg IV ASDIRECTED PRN PRN Reason: decreased respiratory rate Ondansetron HCl (Zofran) 4 mg IVPUSH Q8H PRN PRN Reason: Nausea Last Admin: 08/02/18 03:50 Dose: 4 mg Ondansetron HCl (Zofran Odt) 4 mg PO Q6H PRN PRN Reason: Nausea able to take PO Last Admin: 08/03/18 13:46 Dose: 4 mg Pantoprazole Sodium (Protonix) 40 mg PO ACBREAKFAST [facility] Last Admin: 08/05/18 07:48 Dose: 40 mg Polyethylene Glycol (Miralax) 17 gm PO DAILY PRN PRN Reason: Constipation Sodium Chloride (Saline Flush) 10 ml FLUSH ASDIRECTED PRN PRN Reason: Keep Vein Open Tamsulosin HCl (Flomax) 0.4 mg PO DAILY [facility] Last Admin: 08/05/18 08:02 Dose: 0.4 mg Thiamine HCl (Vitamin B-1) 100 mg PO DAILY [facility] Last Admin: 08/05/18 08:02 Dose: 100 mg Discontinued Medications Fentanyl (Sublimaze) Confirm Administered Dose 100 mcg .ROUTE .STK-MED ONE Stop: 08/03/18 12:21 Folic Acid (Folic Acid) Confirm Administered Dose 50 mg .ROUTE .STK-MED ONE Stop: 08/02/18 02:46 Last Admin: 08/02/18 15:03 Dose: Not Given Haloperidol Lactate (Haldol) 2 mg IVPUSH Q4H PRN PRN Reason: Agitation Last Admin: 08/04/18 08:40 Dose: 2 mg Haloperidol Lactate (Haldol) 2 mg IVPUSH Q2H PRN PRN Reason: Agitation Last Admin: 08/04/18 14:29 Dose: 2 mg Haloperidol Lactate (Haldol) 3 mg IVPUSH Q2H PRN PRN Reason: Agitation Last Admin: 08/04/18 16:17 Dose: 3 mg Haloperidol Lactate (Haldol) 5 mg IVPUSH ONETIME ONE Stop: 08/04/18 17:33 Last Admin: 08/04/18 17:44 Dose: 5 mg Hydromorphone HCl (Dilaudid Supervisor [employer] 15 Mg In Ns 30 Ml) 0 mg IV ASDIRECTED PRN; Protocol PRN Reason: [employer] PAIN CONTROL Last Admin: 08/03/18 13:56 Dose: 15 mg Hydromorphone HCl (Dilaudid) 1 mg IV NOW ONE Stop: 08/02/18 08:46 Last Admin: 08/02/18 11:21 Dose: Not Given Hydromorphone HCl (Dilaudid) 1 mg IV Q2H PRN PRN Reason: PAIN Stop: 08/02/18 08:40 Last Admin: 08/02/18 08:17 Dose: 1 mg Hydromorphone HCl (Dilaudid) 1 mg IVPUSH ONETIME ONE Stop: 08/02/18 01:51 Last Admin: 08/02/18 01:50 Dose: 1 mg Hydromorphone HCl (Dilaudid) Confirm Administered Dose 1 mg .ROUTE .STK-MED ONE Stop: 08/02/18 01:48 Last Admin: 08/02/18 15:03 Dose: Not Given Hydromorphone HCl (Dilaudid) Confirm Administered Dose 1 mg .ROUTE .STK-MED ONE Stop: 08/02/18 03:05 Last Admin: 08/02/18 15:05 Dose: Not Given Hydromorphone HCl (Dilaudid) Confirm Administered Dose 1 mg .ROUTE .STK-MED ONE Stop: 08/02/18 08:19 Last Admin: 08/02/18 15:04 Dose: Not Given Sodium Chloride (Normal Saline) 1,000 mls @ 125 mls/hr IV ASDIRECTED RAFAT Last Admin: 08/03/18 12:05 Dose: 125 mls/hr Multivitamins/Minerals 10 ml/Magnesium Sulfate 2 gm/ Folic Acid 1 mg/ Thiamine HCl 100 mg / Sodium Chloride 1,015.2 mls @ 1,000 mls/hr IV ONETIME ONE Stop: 08/02/18 03:10 Last Admin: 08/02/18 03:30 Dose: 1,000 mls/hr Pantoprazole Sodium 80 mg/ (Sodium Chloride) 100 mls @ 10 mls/hr IV .Q10H RAFAT Last Admin: 08/03/18 06:27 Dose: 10 mls/hr Sodium Chloride (Normal Saline) 250 mls @ 500 mls/hr IV ASDIRECTED RAFAT Last Admin: 08/02/18 01:40 Dose: 500 mls/hr Sodium Chloride (Normal Saline) 1,000 mls @ 50 mls/hr IV ASDIRECTED RAFAT Sodium Chloride (Normal Saline) 1,000 mls @ 125 mls/hr IV ASDIRECTED RAFAT Last Admin: 08/04/18 04:07 Dose: 125 mls/hr Lorazepam (Ativan) 1 mg IVPUSH Q2H PRN PRN Reason: AGITATION Last Admin: 08/02/18 10:29 Dose: 1 mg Lorazepam (Ativan) Confirm Administered Dose 2 mg .ROUTE .STK-MED ONE Stop: 08/02/18 03:30 Last Admin: 08/02/18 15:06 Dose: Not Given Lorazepam (Ativan) Confirm Administered Dose 2 mg .ROUTE .STK-MED ONE Stop: 08/02/18 08:11 Last Admin: 08/02/18 15:07 Dose: Not Given Lorazepam (Ativan) Confirm Administered Dose 2 mg .ROUTE .STK-MED ONE Stop: 08/02/18 10:21 Last Admin: 08/02/18 15:07 Dose: Not Given Magnesium Sulfate (Magnesium Sulfate 50%) Confirm Administered Dose 2 gm .ROUTE .STK-MED ONE Stop: 08/02/18 02:46 Last Admin: 08/02/18 15:03 Dose: Not Given Methylprednisolone Sodium Succinate (Solu-Medrol) 125 mg IVPUSH ONETIME ONE Stop: 08/03/18 17:31 Last Admin: 08/03/18 17:13 Dose: 125 mg Methylprednisolone Sodium Succinate (Solu-Medrol) 40 mg IVPUSH Q6H [facility] Last Admin: 08/04/18 04:04 Dose: 40 mg Midazolam HCl (Versed 1 Mg/Ml) Confirm Administered Dose 2 mg .ROUTE .STK-MED ONE Stop: 08/03/18 12:21 Multivitamins/Minerals (Infuvite Adult) Confirm Administered Dose 10 ml IV .STK- MED ONE Stop: 08/02/18 02:47 Last Admin: 08/02/18 15:04 Dose: Not Given Ondansetron HCl (Zofran) Confirm Administered Dose 4 mg .ROUTE .STK-MED ONE Stop: 08/02/18 03:51 Last Admin: 08/02/18 15:06 Dose: Not Given Pantoprazole Sodium (Protonix Iv) 40 mg IV ONETIME ONE Stop: 08/02/18 03:31 Last Admin: 08/02/18 03:22 Dose: 40 mg Pantoprazole Sodium (Protonix Iv) 40 mg IV Q24H [facility] Last Admin: 08/03/18 07:20 Dose: Not Given Pantoprazole Sodium (Protonix Iv) Confirm Administered Dose 40 mg .ROUTE .STK -MED ONE Stop: 08/02/18 03:21 Last Admin: 08/02/18 15:05 Dose: Not Given Pantoprazole Sodium (Protonix Iv) 40 mg IVPUSH Q12H [facility] Last Admin: 08/04/18 04:04 Dose: 40 mg Potassium Chloride (Klor-Con M20) 40 meq PO ONETIME ONE Stop: 08/05/18 05:38 Last Admin: 08/05/18 06:07 Dose: 40 meq Potassium Chloride (Klor-Con M20) 40 meq PO ONETIME ONE Stop: 08/05/18 09:01 Last Admin: 08/05/18 09:25 Dose: 40 meq Propofol (Diprivan 20 Ml) Confirm Administered Dose 200 mg .ROUTE .STK-MED ONE Stop: 08/03/18 12:21 Thiamine HCl (Vitamin B-1) Confirm Administered Dose 200 mg .ROUTE .STK-MED ONE Stop: 08/02/18 02:46 Last Admin: 08/02/18 15:04 Dose: Not Given - Exam Quality Assessment: Urine Catheter, DVT Prophylaxis General: Alert, Oriented, Cooperative, Moderate Distress Lungs: Clear to Auscultation, Normal Respiratory Effort, Decreased Breath Sounds Cardiovascular: Regular Rate, Regular Rhythm, No Murmurs GI/Abdominal Exam: Soft, Non-Tender, No Organomegaly, No Distention Extremities: Non-Tender, No Pedal Edema - Problem List Review Problem List Initiated/Reviewed/Updated: Yes - My Orders Last 24 Hours: My Active Orders 08/04/18 10:00 Sodium Chloride 0.9% [Normal Saline] 1,000 ml IV ASDIRECTED Tamsulosin [Flomax] 0.4 mg PO DAILY 08/04/18 19:13 Haloperidol Lactate [Haldol] 5 mg IVPUSH Q2H PRN 08/05/18 05:35 HYDROmorphone [Dilaudid] 0.5 mg IVPUSH Q2H PRN 08/05/18 07:30 Pantoprazole [ProTONIX] 40 mg PO ACBREAKFAST 08/05/18 09:00 Magnesium Sulfate/Water [Magnesium Sulfate 2 GM in Water 50 ML] 2 gm Premix Bag 1 bag IV Q6H 08/05/18 10:00 Sodium Chloride 0.9% @ 75 MLS/HR(1000ml) Sodium Chloride 0.9% [Normal Saline] 1 ,000 ml IV ASDIRECTED 08/05/18 Breakfast NPO Now [Nothing per Oral Now Diet] [DIET] 08/06/18 05:00 CBC WITH AUTO DIFF [HEME] Timed COMPREHENSIVE METABOLIC PN,CMP [CHEM] Timed INR,PT,PROTHROMBIN TIME [COAG] Timed LIPASE [CHEM] Timed - Plan Plan:: ASSESSMENT AND PLAN - Acute alcoholic induced pancreatitis -he developed abdominal pain during the night and lipase level was found to be elevated again -Normal saline 75 mL/h -Nothing by mouth -Repeat lipase level in a.m. -Nausea management as indicated Alcohol withdrawal with delirium - long history of alcohol abuse. Patient does not seem interested in cessation at this time. He has been through treatment several times. He is tremulous and hallucinating at this time. -CIWA every hour -Lorazepam alcohol withdrawal protocol -Gabapentin 400 mg 3 times a day -Melatonin at bedtime -Thiamine and folate daily -Encourage cessation once more stable after the alcohol withdrawal Community-acquired pneumonia-chest x-ray shows infiltrate left lung, white blood cell count remains elevated, he is been afebrile over the last 24 hours -Blood cultures pending -Continue levofloxacin and Zosyn pending culture results Urinary retention-likely secondary to BPH -[place] catheter -Flomax 0.4 mg by mouth daily Possible gastrointestinal hemorrhage - no further evidence of bleeding, EGD unremarkable for bleeding source -Oral Protonix Maintenance issues - - DVT prophylaxis - mechanical with possible active hemorrhage - GI prophylaxis - PPI - Nutrition - nothing by mouth - [place] catheter - not indicated Disposition - I would anticipate discharge home after the hospital stay Primary care physician - Kimberly Vega - Delfin Kathleen
[2018-08-05] MEDS: diphenhydrAMINE 25 MG Cap PO PRN (10:42)
[2018-08-05] MEDS: Sodium Chloride 0.9% 1,000 ML IV SCH (13:10)
[2018-08-05] MEDS: Melatonin 3 MG Tab PO SCH (20:20)
[2018-08-06] MEDS: Haloperidol Lactate 5 MG/ML SDV IVPUSH PRN ×11 (00:26→23:29)
[2018-08-06] MEDS: HYDROmorphone 0.5 MG/0.5 ML Syringe IVPUSH PRN ×4 (00:33→17:34)
[2018-08-06] MEDS: LORazepam 2 MG/ML SDV IV SCH ×26 (00:50→23:57)
[2018-08-06] MEDS: Magnesium Sulfate/Water 2 GM in Premix Bag 1 BAG IV SCH (02:33)
[2018-08-06] MEDS: Sodium Chloride 0.9% 1,000 ML IV SCH ×2 (03:35→18:49)
[2018-08-06] MEDS: Piperacillin/Tazobactam/Dext 3.375 GM in Premix Bag 1 BAG IV SCH ×2 (04:42→10:28)
[2018-08-06] MEDS: Lactobacillus Rhamnosus GG (Probiotic) Cap PO SCH ×2 (08:01→20:00)
[2018-08-06] MEDS: diphenhydrAMINE 25 MG Cap PO PRN ×2 (08:01→13:32)
[2018-08-06] MEDS: Pantoprazole 40 MG Tab.CR PO SCH (08:01)
[2018-08-06] MEDS: Gabapentin 400 MG Cap PO SCH (08:01)
[2018-08-06] MEDS: Thiamine 100 MG Tab PO SCH (08:01)
[2018-08-06] MEDS: Tamsulosin 0.4 MG Cap.ER PO SCH (08:01)
[2018-08-06] MEDS ORDERED: Potassium Chloride 20 MEQ Tab.ER PO ONE (09:00)
--- NOTE | 2018-08-06 09:30 | PCM.PN ---
- General Info Date of Service: 08/06/18 Subjective Update: Mr. Ortega continues to experience significant alcohol withdrawal and delirium with agitation. He has required large doses of lorazepam in addition to Haldol for ongoing management. He is unable to provide meaningful history concerning symptoms or review systems because of delirium. - Patient Data Vitals - Most Recent: Last Vital Signs Temp 97.3 F 08/06/18 07:00 Pulse 74 08/06/18 08:59 Resp 16 08/06/18 08:59 BP 127/81 08/06/18 08:59 Pulse Ox 99 08/06/18 08:59 Weight - Most Recent: 162 lb 0.001 oz I&O - Last 24 Hours: Intake & Output 08/05/18 08/06/18 08/06/18 22:59 06:59 14:59 Intake Total 1210 949 Output Total 300 1500 225 Balance 910 -361 225 Lab Results Last 24 Hours: Laboratory Results - last 24 hr 08/06/18 08/06/18 08/06/18 Range/Units 05:00 05:00 05:00 WBC 9.9 (4.5-11.0) K/uL RBC 3.28 L (4.30-5.90) M/uL Hgb 10.9 L (12.0-15.0) g/dL Hct 31.2 L (40.0-54.0) % MCV 95 (80-98) fL MCH 33 H (27-31) pg MCHC 35 (32-36) % Plt Count 274 (150-400) K/uL Neut % (Auto) 79 H (36-66) % Lymph % (Auto) 11 L (24-44) % Grady % (Auto) 8 H (2-6) % Eos % (Auto) 2 (2-4) % Baso % (Auto) 0 (0-1) % PT 10.2 (9.5-12.0) sec INR 0.92 (0.80-1.20) Sodium 137 L (140-148) mmol/L Potassium 3.5 L (3.6-5.2) mmol/L Chloride 104 (100-108) mmol/L Carbon Dioxide 24 (21-32) mmol/L Anion Gap 12.5 (5.0-14.0) mmol/L BUN 4 L D (7-18) mg/dL Creatinine 0.7 L (0.8-1.3) mg/dL Est Cr Clr Drug Dosing 123.93 mL/min Estimated GFR (MDRD) > 60 (>60) Glucose 116 H (74-106) mg/dL Calcium 8.7 (8.5-10.1) mg/dL Total Bilirubin 0.6 D (0.2-1.0) mg/dL AST 24 (15-37) U/L ALT 91 H (12-78) U/L Alkaline Phosphatase 112 (46-116) U/L Total Protein 6.9 (6.4-8.2) g/dL Albumin 3.1 L (3.4-5.0) g/dL Globulin 3.8 H (2.3-3.5) g/dL Albumin/Globulin Ratio 0.8 L (1.2-2.2) Lipase 537 H (73-393) U/L Lonnie Results Last 24 Hours: Microbiology 08/03/18 17:00 Aerobic Blood Culture - Preliminary Blood - Venous NO GROWTH AFTER 2 DAYS Anaerobic Blood Culture - Preliminary NO GROWTH AFTER 2 DAYS 08/03/18 16:30 Aerobic Blood Culture - Preliminary Blood - Venous - Lab Draw NO GROWTH AFTER 2 DAYS Anaerobic Blood Culture - Preliminary NO GROWTH AFTER 2 DAYS Med Orders - Current: Current Medications Acetaminophen (Tylenol) 650 mg PO Q4H PRN PRN Reason: ANALGESIA/FEVER Last Admin: 08/05/18 12:12 Dose: 650 mg Acetaminophen (Tylenol) 650 mg RECTAL Q4H PRN PRN Reason: ANALGESIA/FEVER Al Hydroxide/Mg Hydroxide (Mag-Al Plus) 30 ml PO Q4H PRN PRN Reason: DYSPEPSIA Albuterol (Proventil Neb Soln) 2.5 mg NEB Q4H PRN PRN Reason: Shortness Of Breath/wheezing Bisacodyl (Dulcolax) 10 mg RECTAL DAILY PRN PRN Reason: CONSTIPATION Calcium Carbonate/Glycine (Tums) 500 - 1,000 mg PO Q4H PRN PRN Reason: DYSPEPSIA Diphenhydramine HCl (Benadryl) 25 mg PO Q4H PRN PRN Reason: ITCHING/ANXIETY Last Admin: 08/06/18 08:01 Dose: 25 mg Docusate Sodium (Colace) 100 mg PO DAILY PRN PRN Reason: CONSTIPATION Gabapentin (Neurontin) 200 mg PO TID [facility] Haloperidol Lactate (Haldol) 8 mg IVPUSH Q2H PRN PRN Reason: Agitation Last Admin: 08/06/18 08:53 Dose: 8 mg Hydromorphone HCl (Dilaudid) 0.5 mg IVPUSH Q2H PRN PRN Reason: Abdominal Pain Last Admin: 08/06/18 00:33 Dose: 0.5 mg Piperacillin/Tazobactam/ (Dextrose 3.375 gm/ Premix) 50 mls @ 100 mls/hr IV Q6H [facility] Last Admin: 08/06/18 04:42 Dose: 100 mls/hr Sodium Chloride (Normal Saline) 1,000 mls @ 50 mls/hr IV ASDIRECTED [facility] Last Admin: 08/05/18 13:10 Dose: 50 mls/hr Sodium Chloride (Normal Saline) 1,000 mls @ 75 mls/hr IV ASDIRECTED [facility] Last Admin: 08/06/18 03:35 Dose: 75 mls/hr Ibuprofen (Motrin) 400 mg PO Q6H PRN PRN Reason: Fever Last Admin: 08/03/18 20:10 Dose: 400 mg Lactobacillus Rhamnosus (Culturelle) 1 cap PO BID [facility] Last Admin: 08/06/18 08:01 Dose: 1 cap Lorazepam (Ativan) 0 mg IV ASDIRECTED [facility]; Protocol Last Admin: 08/06/18 08:26 Dose: 3 mg Lorazepam (Ativan) 0 mg PO ASDIRECTED [facility]; Protocol Magnesium Hydroxide (Milk Of Magnesia) 30 ml PO BID PRN PRN Reason: CONSTIPATION Melatonin (Melatonin) 9 mg PO BEDTIME [facility] Last Admin: 08/05/18 20:20 Dose: 9 mg Naloxone HCl (Narcan) 0.1 mg IV ASDIRECTED PRN PRN Reason: decreased respiratory rate Ondansetron HCl (Zofran) 4 mg IVPUSH Q8H PRN PRN Reason: Nausea Last Admin: 08/02/18 03:50 Dose: 4 mg Ondansetron HCl (Zofran Odt) 4 mg PO Q6H PRN PRN Reason: Nausea able to take PO Last Admin: 08/03/18 13:46 Dose: 4 mg Pantoprazole Sodium (Protonix) 40 mg PO ACBREAKFAST [facility] Last Admin: 08/06/18 08:01 Dose: 40 mg Polyethylene Glycol (Miralax) 17 gm PO DAILY PRN PRN Reason: Constipation Sodium Chloride (Saline Flush) 10 ml FLUSH ASDIRECTED PRN PRN Reason: Keep Vein Open Tamsulosin HCl (Flomax) 0.4 mg PO DAILY [facility] Last Admin: 08/06/18 08:01 Dose: 0.4 mg Thiamine HCl (Vitamin B-1) 100 mg PO DAILY [facility] Last Admin: 08/06/18 08:01 Dose: 100 mg Discontinued Medications Fentanyl (Sublimaze) Confirm Administered Dose 100 mcg .ROUTE .STK-MED ONE Stop: 08/03/18 12:21 Folic Acid (Folic Acid) Confirm Administered Dose 50 mg .ROUTE .STK-MED ONE Stop: 08/02/18 02:46 Last Admin: 08/02/18 15:03 Dose: Not Given Gabapentin (Neurontin) 400 mg PO TID [facility] Last Admin: 08/06/18 08:01 Dose: 400 mg Haloperidol Lactate (Haldol) 2 mg IVPUSH Q4H PRN PRN Reason: Agitation Last Admin: 08/04/18 08:40 Dose: 2 mg Haloperidol Lactate (Haldol) 2 mg IVPUSH Q2H PRN PRN Reason: Agitation Last Admin: 08/04/18 14:29 Dose: 2 mg Haloperidol Lactate (Haldol) 3 mg IVPUSH Q2H PRN PRN Reason: Agitation Last Admin: 08/04/18 16:17 Dose: 3 mg Haloperidol Lactate (Haldol) 5 mg IVPUSH ONETIME ONE Stop: 08/04/18 17:33 Last Admin: 08/04/18 17:44 Dose: 5 mg Haloperidol Lactate (Haldol) 5 mg IVPUSH Q2H PRN PRN Reason: Agitation Last Admin: 08/05/18 18:49 Dose: 5 mg Hydromorphone HCl (Dilaudid [employer] 15 Mg In Ns 30 Ml) 0 mg IV ASDIRECTED PRN; Protocol PRN Reason: [employer] PAIN CONTROL Last Admin: 08/03/18 13:56 Dose: 15 mg Hydromorphone HCl (Dilaudid) 1 mg IV NOW ONE Stop: 08/02/18 08:46 Last Admin: 08/02/18 11:21 Dose: Not Given Hydromorphone HCl (Dilaudid) 1 mg IV Q2H PRN PRN Reason: PAIN Stop: 08/02/18 08:40 Last Admin: 08/02/18 08:17 Dose: 1 mg Hydromorphone HCl (Dilaudid) 1 mg IVPUSH ONETIME ONE Stop: 08/02/18 01:51 Last Admin: 08/02/18 01:50 Dose: 1 mg Hydromorphone HCl (Dilaudid) Confirm Administered Dose 1 mg .ROUTE .STK-MED ONE Stop: 08/02/18 01:48 Last Admin: 08/02/18 15:03 Dose: Not Given Hydromorphone HCl (Dilaudid) Confirm Administered Dose 1 mg .ROUTE .STK-MED ONE Stop: 08/02/18 03:05 Last Admin: 08/02/18 15:05 Dose: Not Given Hydromorphone HCl (Dilaudid) Confirm Administered Dose 1 mg .ROUTE .STK-MED ONE Stop: 08/02/18 08:19 Last Admin: 08/02/18 15:04 Dose: Not Given Sodium Chloride (Normal Saline) 1,000 mls @ 125 mls/hr IV ASDIRECTED [facility] Last Admin: 08/03/18 12:05 Dose: 125 mls/hr Multivitamins/Minerals 10 ml/Magnesium Sulfate 2 gm/ Folic Acid 1 mg/ Thiamine HCl 100 mg / Sodium Chloride 1,015.2 mls @ 1,000 mls/hr IV ONETIME ONE Stop: 08/02/18 03:10 Last Admin: 08/02/18 03:30 Dose: 1,000 mls/hr Pantoprazole Sodium 80 mg/ (Sodium Chloride) 100 mls @ 10 mls/hr IV .Q10H [facility] Last Admin: 08/03/18 06:27 Dose: 10 mls/hr Sodium Chloride (Normal Saline) 250 mls @ 500 mls/hr IV ASDIRECTED [facility] Last Admin: 08/02/18 01:40 Dose: 500 mls/hr Sodium Chloride (Normal Saline) 1,000 mls @ 50 mls/hr IV ASDIRECTED [facility] Sodium Chloride (Normal Saline) 1,000 mls @ 125 mls/hr IV ASDIRECTED [facility] Last Admin: 08/04/18 04:07 Dose: 125 mls/hr Magnesium Sulfate 2 gm/ Premix 50 mls @ 25 mls/hr IV Q6H [facility] Stop: 08/06/18 04:59 Last Admin: 08/06/18 02:33 Dose: 25 mls/hr Lorazepam (Ativan) 1 mg IVPUSH Q2H PRN PRN Reason: AGITATION Last Admin: 08/02/18 10:29 Dose: 1 mg Lorazepam (Ativan) Confirm Administered Dose 2 mg .ROUTE .STK-MED ONE Stop: 08/02/18 03:30 Last Admin: 08/02/18 15:06 Dose: Not Given Lorazepam (Ativan) Confirm Administered Dose 2 mg .ROUTE .STK-MED ONE Stop: 08/02/18 08:11 Last Admin: 08/02/18 15:07 Dose: Not Given Lorazepam (Ativan) Confirm Administered Dose 2 mg .ROUTE .STK-MED ONE Stop: 08/02/18 10:21 Last Admin: 08/02/18 15:07 Dose: Not Given Magnesium Sulfate (Magnesium Sulfate 50%) Confirm Administered Dose 2 gm .ROUTE .STK-MED ONE Stop: 08/02/18 02:46 Last Admin: 08/02/18 15:03 Dose: Not Given Methylprednisolone Sodium Succinate (Solu-Medrol) 125 mg IVPUSH ONETIME ONE Stop: 08/03/18 17:31 Last Admin: 08/03/18 17:13 Dose: 125 mg Methylprednisolone Sodium Succinate (Solu-Medrol) 40 mg IVPUSH Q6H [facility] Last Admin: 08/04/18 04:04 Dose: 40 mg Midazolam HCl (Versed 1 Mg/Ml) Confirm Administered Dose 2 mg .ROUTE .STK-MED ONE Stop: 08/03/18 12:21 Multivitamins/Minerals (Infuvite Adult) Confirm Administered Dose 10 ml IV .STK- MED ONE Stop: 08/02/18 02:47 Last Admin: 08/02/18 15:04 Dose: Not Given Ondansetron HCl (Zofran) Confirm Administered Dose 4 mg .ROUTE .STK-MED ONE Stop: 08/02/18 03:51 Last Admin: 08/02/18 15:06 Dose: Not Given Pantoprazole Sodium (Protonix Iv) 40 mg IV ONETIME ONE Stop: 08/02/18 03:31 Last Admin: 08/02/18 03:22 Dose: 40 mg Pantoprazole Sodium (Protonix Iv) 40 mg IV Q24H [facility] Last Admin: 08/03/18 07:20 Dose: Not Given Pantoprazole Sodium (Protonix Iv) Confirm Administered Dose 40 mg .ROUTE .STK -MED ONE Stop: 08/02/18 03:21 Last Admin: 08/02/18 15:05 Dose: Not Given Pantoprazole Sodium (Protonix Iv) 40 mg IVPUSH Q12H [facility] Last Admin: 08/04/18 04:04 Dose: 40 mg Potassium Chloride (Klor-Con M20) 40 meq PO ONETIME ONE Stop: 08/05/18 05:38 Last Admin: 08/05/18 06:07 Dose: 40 meq Potassium Chloride (Klor-Con M20) 40 meq PO ONETIME ONE Stop: 08/05/18 09:01 Last Admin: 08/05/18 09:25 Dose: 40 meq Potassium Chloride (Klor-Con M20) 40 meq PO ONETIME ONE Stop: 08/06/18 09:01 Propofol (Diprivan 20 Ml) Confirm Administered Dose 200 mg .ROUTE .STK-MED ONE Stop: 08/03/18 12:21 Thiamine HCl (Vitamin B-1) Confirm Administered Dose 200 mg .ROUTE .STK-MED ONE Stop: 08/02/18 02:46 Last Admin: 08/02/18 15:04 Dose: Not Given - Exam General: Sedated, Lethargic Lungs: Clear to Auscultation, Normal Respiratory Effort Cardiovascular: Regular Rate, Regular Rhythm, No Murmurs GI/Abdominal Exam: Soft, Non-Tender, No Organomegaly, No Distention Extremities: Non-Tender, No Pedal Edema - Problem List Review Problem List Initiated/Reviewed/Updated: Yes - My Orders Last 24 Hours: My Active Orders 08/05/18 10:00 Sodium Chloride 0.9% [Normal Saline] 1,000 ml IV ASDIRECTED 08/05/18 20:10 Haloperidol Lactate [Haldol] 8 mg IVPUSH Q2H PRN 08/05/18 20:11 Communication Order [RC] ASDIRECTED 08/06/18 14:00 Gabapentin [Neurontin] 200 mg PO TID 08/07/18 05:00 CBC WITH AUTO DIFF [HEME] Timed COMPREHENSIVE METABOLIC PN,CMP [CHEM] Timed LIPASE [CHEM] Timed MAGNESIUM [CHEM] Timed - Plan Plan:: ASSESSMENT AND PLAN - Acute alcoholic induced pancreatitis -lipase level remains modestly elevated, given recurrent pain 2 nights ago will hold on oral intake until tomorrow. -Normal saline 75 mL/h -Nothing by mouth -Repeat lipase level in a.m. -Nausea management as indicated Alcohol withdrawal with delirium - long history of alcohol abuse. Continues to experience severe withdrawal with delirium and agitation -CIWA every hour -Lorazepam alcohol withdrawal protocol -Haldol as needed -Gabapentin 400 mg 3 times a day -Melatonin at bedtime -Thiamine and folate daily -Encourage cessation once more stable after the alcohol withdrawal Community-acquired pneumonia-chest x-ray shows infiltrate left lung, white blood cell count remains elevated, he is been afebrile over the last 48 hours. White blood cell count has normalized today. Blood cultures are negative after 2 days. -Continue levofloxacin -Discontinue Zosyn Urinary retention-likely secondary to BPH -[place] catheter, attempt to remove in the next day or 2 -Flomax 0.4 mg by mouth daily Possible gastrointestinal hemorrhage - no further evidence of bleeding, EGD unremarkable for bleeding source -Oral Protonix Maintenance issues - - DVT prophylaxis - mechanical with possible active hemorrhage - GI prophylaxis - PPI - Nutrition - nothing by mouth - [place] catheter - not indicated Disposition - I would anticipate discharge home after the hospital stay Primary care physician - Kimberly Kathleen
[2018-08-06] MEDS: Levofloxacin/Dextrose 5%-Water 750 MG in Premix Bag 1 BAG IV SCH (12:31)
[2018-08-06] MEDS: Gabapentin 100 MG Cap PO SCH ×2 (13:32→20:00)
[2018-08-06] MEDS: Melatonin 3 MG Tab PO SCH (20:00)
[2018-08-07] MEDS: LORazepam 2 MG/ML SDV IV SCH ×14 (00:26→20:18)
[2018-08-07] MEDS: Haloperidol Lactate 5 MG/ML SDV IVPUSH PRN ×7 (01:33→19:40)
[2018-08-07] MEDS: Pantoprazole 40 MG Tab.CR PO SCH (07:27)
[2018-08-07] MEDS: HYDROmorphone 0.5 MG/0.5 ML Syringe IVPUSH PRN ×4 (07:30→20:18)
[2018-08-07] MEDS: Lactobacillus Rhamnosus GG (Probiotic) Cap PO SCH ×2 (08:23→20:17)
[2018-08-07] MEDS: Gabapentin 100 MG Cap PO SCH ×3 (08:24→20:17)
[2018-08-07] MEDS: Tamsulosin 0.4 MG Cap.ER PO SCH (08:25)
[2018-08-07] MEDS: Thiamine 100 MG Tab PO SCH (08:25)
[2018-08-07] MEDS: Sodium Chloride 0.9% 1,000 ML IV SCH ×2 (08:40→22:52)
[2018-08-07] MEDS: Magnesium Sulfate/Water 2 GM in Premix Bag 1 BAG IV SCH ×3 (09:13→20:17)
--- NOTE | 2018-08-07 09:33 | PCM.PN ---
- General Info Date of Service: 08/07/18 Subjective Update: Mr. Ortega has shown modest evidence of improvement over the last 24 hours. Still very tremulous, but not as agitated. Still requiring large doses of lorazepam and Haldol for management. Unable to provide meaningful information concerning symptoms or review systems because of ongoing confusion. - Patient Data Vitals - Most Recent: Last Vital Signs Temp 97.7 F 08/07/18 07:52 Pulse 76 08/07/18 07:52 Resp 18 08/07/18 07:52 BP 145/98 H 08/07/18 07:52 Pulse Ox 99 08/07/18 07:52 Weight - Most Recent: 162 lb 0.001 oz I&O - Last 24 Hours: Intake & Output 08/06/18 08/07/18 08/07/18 22:59 06:59 14:59 Intake Total 994 835 Output Total 325 700 Balance 669 135 Lab Results Last 24 Hours: Laboratory Results - last 24 hr 08/07/18 08/07/18 Range/Units 05:35 05:35 WBC 7.4 (4.5-11.0) K/uL RBC 3.39 L (4.30-5.90) M/uL Hgb 11.1 L (12.0-15.0) g/dL Hct 32.8 L (40.0-54.0) % MCV 97 (80-98) fL MCH 33 H (27-31) pg MCHC 34 (32-36) % Plt Count 265 (150-400) K/uL Neut % (Auto) 64 (36-66) % Lymph % (Auto) 20 L (24-44) % [place] % (Auto) 14 H (2-6) % Eos % (Auto) 3 (2-4) % Baso % (Auto) 0 (0-1) % Sodium 138 L (140-148) mmol/L Potassium 3.6 (3.6-5.2) mmol/L Chloride 105 (100-108) mmol/L Carbon Dioxide 23 (21-32) mmol/L Anion Gap 13.6 (5.0-14.0) mmol/L BUN 2 L (7-18) mg/dL Creatinine 0.8 (0.8-1.3) mg/dL Est Cr Clr Drug Dosing 108.44 mL/min Estimated GFR (MDRD) > 60 (>60) Glucose 101 (74-106) mg/dL Calcium 9.4 (8.5-10.1) mg/dL Magnesium 1.3 L (1.8-2.4) mg/dL Total Bilirubin 0.6 (0.2-1.0) mg/dL AST 22 (15-37) U/L ALT 70 (12-78) U/L Alkaline Phosphatase 116 (46-116) U/L Total Protein 7.1 (6.4-8.2) g/dL Albumin 3.2 L (3.4-5.0) g/dL Globulin 3.9 H (2.3-3.5) g/dL Albumin/Globulin Ratio 0.8 L (1.2-2.2) Lipase 486 H (73-393) U/L Lonnie Results Last 24 Hours: Microbiology 08/03/18 17:00 Aerobic Blood Culture - Preliminary Blood - Venous NO GROWTH AFTER 3 DAYS Anaerobic Blood Culture - Preliminary NO GROWTH AFTER 3 DAYS 08/03/18 16:30 Aerobic Blood Culture - Preliminary Blood - Venous - Lab Draw NO GROWTH AFTER 3 DAYS Anaerobic Blood Culture - Preliminary NO GROWTH AFTER 3 DAYS Med Orders - Current: Current Medications Acetaminophen (Tylenol) 650 mg PO Q4H PRN PRN Reason: ANALGESIA/FEVER Last Admin: 08/05/18 12:12 Dose: 650 mg Acetaminophen (Tylenol) 650 mg RECTAL Q4H PRN PRN Reason: ANALGESIA/FEVER Al Hydroxide/Mg Hydroxide (Mag-Al Plus) 30 ml PO Q4H PRN PRN Reason: DYSPEPSIA Albuterol (Proventil Neb Soln) 2.5 mg NEB Q4H PRN PRN Reason: Shortness Of Breath/wheezing Bisacodyl (Dulcolax) 10 mg RECTAL DAILY PRN PRN Reason: CONSTIPATION Calcium Carbonate/Glycine (Tums) 500 - 1,000 mg PO Q4H PRN PRN Reason: DYSPEPSIA Diphenhydramine HCl (Benadryl) 25 mg PO Q4H PRN PRN Reason: ITCHING/ANXIETY Last Admin: 08/06/18 13:32 Dose: 25 mg Docusate Sodium (Colace) 100 mg PO DAILY PRN PRN Reason: CONSTIPATION Gabapentin (Neurontin) 200 mg PO TID [facility] Last Admin: 08/07/18 08:24 Dose: 200 mg Haloperidol Lactate (Haldol) 8 mg IVPUSH Q2H PRN PRN Reason: Agitation Last Admin: 08/07/18 08:16 Dose: 8 mg Hydromorphone HCl (Dilaudid) 0.5 mg IVPUSH Q2H PRN PRN Reason: Abdominal Pain Last Admin: 08/07/18 07:30 Dose: 0.5 mg Sodium Chloride (Normal Saline) 1,000 mls @ 75 mls/hr IV ASDIRECTED [facility] Last Admin: 08/07/18 08:40 Dose: 75 mls/hr Levofloxacin/Dextrose 750 mg/ (Premix) 150 mls @ 100 mls/hr IV Q24H [facility] Last Admin: 08/06/18 12:31 Dose: 100 mls/hr Magnesium Sulfate 2 gm/ Premix 50 mls @ 25 mls/hr IV Q6H [facility] Stop: 08/07/18 22:59 Last Admin: 08/07/18 09:13 Dose: 25 mls/hr Ibuprofen (Motrin) 400 mg PO Q6H PRN PRN Reason: Fever Last Admin: 08/03/18 20:10 Dose: 400 mg Lactobacillus Rhamnosus (Culturelle) 1 cap PO BID [facility] Last Admin: 08/07/18 08:23 Dose: 1 cap Lorazepam (Ativan) 0 mg IV ASDIRECTED [facility]; Protocol Last Admin: 08/07/18 07:34 Dose: 4 mg Lorazepam (Ativan) 0 mg PO ASDIRECTED [facility]; Protocol Magnesium Hydroxide (Milk Of Magnesia) 30 ml PO BID PRN PRN Reason: CONSTIPATION Melatonin (Melatonin) 9 mg PO BEDTIME [facility] Last Admin: 08/06/18 20:00 Dose: 9 mg Ondansetron HCl (Zofran) 4 mg IVPUSH Q8H PRN PRN Reason: Nausea Last Admin: 08/02/18 03:50 Dose: 4 mg Ondansetron HCl (Zofran Odt) 4 mg PO Q6H PRN PRN Reason: Nausea able to take PO Last Admin: 08/03/18 13:46 Dose: 4 mg Pantoprazole Sodium (Protonix) 40 mg PO ACBREAKFAST [facility] Last Admin: 08/07/18 07:27 Dose: 40 mg Polyethylene Glycol (Miralax) 17 gm PO DAILY PRN PRN Reason: Constipation Sodium Chloride (Saline Flush) 10 ml FLUSH ASDIRECTED PRN PRN Reason: Keep Vein Open Tamsulosin HCl (Flomax) 0.4 mg PO DAILY [facility] Last Admin: 08/07/18 08:25 Dose: 0.4 mg Thiamine HCl (Vitamin B-1) 100 mg PO DAILY [facility] Last Admin: 08/07/18 08:25 Dose: 100 mg Discontinued Medications Fentanyl (Sublimaze) Confirm Administered Dose 100 mcg .ROUTE .STK-MED ONE Stop: 08/03/18 12:21 Folic Acid (Folic Acid) Confirm Administered Dose 50 mg .ROUTE .STK-MED ONE Stop: 08/02/18 02:46 Last Admin: 08/02/18 15:03 Dose: Not Given Gabapentin (Neurontin) 400 mg PO TID [facility] Last Admin: 08/06/18 08:01 Dose: 400 mg Haloperidol Lactate (Haldol) 2 mg IVPUSH Q4H PRN PRN Reason: Agitation Last Admin: 08/04/18 08:40 Dose: 2 mg Haloperidol Lactate (Haldol) 2 mg IVPUSH Q2H PRN PRN Reason: Agitation Last Admin: 08/04/18 14:29 Dose: 2 mg Haloperidol Lactate (Haldol) 3 mg IVPUSH Q2H PRN PRN Reason: Agitation Last Admin: 08/04/18 16:17 Dose: 3 mg Haloperidol Lactate (Haldol) 5 mg IVPUSH ONETIME ONE Stop: 08/04/18 17:33 Last Admin: 08/04/18 17:44 Dose: 5 mg Haloperidol Lactate (Haldol) 5 mg IVPUSH Q2H PRN PRN Reason: Agitation Last Admin: 08/05/18 18:49 Dose: 5 mg Hydromorphone HCl (Dilaudid Critical Care Nurse Specialist 15 Mg In Ns 30 Ml) 0 mg IV ASDIRECTED PRN; Protocol PRN Reason: HYDROSTATIC TUBING TESTER PAIN CONTROL Last Admin: 08/03/18 13:56 Dose: 15 mg Hydromorphone HCl (Dilaudid) 1 mg IV NOW ONE Stop: 08/02/18 08:46 Last Admin: 08/02/18 11:21 Dose: Not Given Hydromorphone HCl (Dilaudid) 1 mg IV Q2H PRN PRN Reason: PAIN Stop: 08/02/18 08:40 Last Admin: 08/02/18 08:17 Dose: 1 mg Hydromorphone HCl (Dilaudid) 1 mg IVPUSH ONETIME ONE Stop: 08/02/18 01:51 Last Admin: 08/02/18 01:50 Dose: 1 mg Hydromorphone HCl (Dilaudid) Confirm Administered Dose 1 mg .ROUTE .STK-MED ONE Stop: 08/02/18 01:48 Last Admin: 08/02/18 15:03 Dose: Not Given Hydromorphone HCl (Dilaudid) Confirm Administered Dose 1 mg .ROUTE .STK-MED ONE Stop: 08/02/18 03:05 Last Admin: 08/02/18 15:05 Dose: Not Given Hydromorphone HCl (Dilaudid) Confirm Administered Dose 1 mg .ROUTE .STK-MED ONE Stop: 08/02/18 08:19 Last Admin: 08/02/18 15:04 Dose: Not Given Sodium Chloride (Normal Saline) 1,000 mls @ 125 mls/hr IV ASDIRECTED [facility] Last Admin: 08/03/18 12:05 Dose: 125 mls/hr Multivitamins/Minerals 10 ml/Magnesium Sulfate 2 gm/ Folic Acid 1 mg/ Thiamine HCl 100 mg / Sodium Chloride 1,015.2 mls @ 1,000 mls/hr IV ONETIME ONE Stop: 08/02/18 03:10 Last Admin: 08/02/18 03:30 Dose: 1,000 mls/hr Pantoprazole Sodium 80 mg/ (Sodium Chloride) 100 mls @ 10 mls/hr IV .Q10H [facility] Last Admin: 08/03/18 06:27 Dose: 10 mls/hr Sodium Chloride (Normal Saline) 250 mls @ 500 mls/hr IV ASDIRECTED [facility] Last Admin: 08/02/18 01:40 Dose: 500 mls/hr Sodium Chloride (Normal Saline) 1,000 mls @ 50 mls/hr IV ASDIRECTED [facility] Piperacillin/Tazobactam/ (Dextrose 3.375 gm/ Premix) 50 mls @ 100 mls/hr IV Q6H [facility] Last Admin: 08/06/18 10:28 Dose: 100 mls/hr Sodium Chloride (Normal Saline) 1,000 mls @ 125 mls/hr IV ASDIRECTED [facility] Last Admin: 08/04/18 04:07 Dose: 125 mls/hr Sodium Chloride (Normal Saline) 1,000 mls @ 50 mls/hr IV ASDIRECTED [facility] Last Admin: 08/05/18 13:10 Dose: 50 mls/hr Magnesium Sulfate 2 gm/ Premix 50 mls @ 25 mls/hr IV Q6H [facility] Stop: 08/06/18 04:59 Last Admin: 08/06/18 02:33 Dose: 25 mls/hr Lorazepam (Ativan) 1 mg IVPUSH Q2H PRN PRN Reason: AGITATION Last Admin: 08/02/18 10:29 Dose: 1 mg Lorazepam (Ativan) Confirm Administered Dose 2 mg .ROUTE .STK-MED ONE Stop: 08/02/18 03:30 Last Admin: 08/02/18 15:06 Dose: Not Given Lorazepam (Ativan) Confirm Administered Dose 2 mg .ROUTE .STK-MED ONE Stop: 08/02/18 08:11 Last Admin: 08/02/18 15:07 Dose: Not Given Lorazepam (Ativan) Confirm Administered Dose 2 mg .ROUTE .STK-MED ONE Stop: 08/02/18 10:21 Last Admin: 08/02/18 15:07 Dose: Not Given Magnesium Sulfate (Magnesium Sulfate 50%) Confirm Administered Dose 2 gm .ROUTE .STK-MED ONE Stop: 08/02/18 02:46 Last Admin: 08/02/18 15:03 Dose: Not Given Methylprednisolone Sodium Succinate (Solu-Medrol) 125 mg IVPUSH ONETIME ONE Stop: 08/03/18 17:31 Last Admin: 08/03/18 17:13 Dose: 125 mg Methylprednisolone Sodium Succinate (Solu-Medrol) 40 mg IVPUSH Q6H [facility] Last Admin: 08/04/18 04:04 Dose: 40 mg Midazolam HCl (Versed 1 Mg/Ml) Confirm Administered Dose 2 mg .ROUTE .STK-MED ONE Stop: 08/03/18 12:21 Multivitamins/Minerals (Infuvite Adult) Confirm Administered Dose 10 ml IV .STK- MED ONE Stop: 08/02/18 02:47 Last Admin: 08/02/18 15:04 Dose: Not Given Naloxone HCl (Narcan) 0.1 mg IV ASDIRECTED PRN PRN Reason: decreased respiratory rate Ondansetron HCl (Zofran) Confirm Administered Dose 4 mg .ROUTE .STK-MED ONE Stop: 08/02/18 03:51 Last Admin: 08/02/18 15:06 Dose: Not Given Pantoprazole Sodium (Protonix Iv) 40 mg IV ONETIME ONE Stop: 08/02/18 03:31 Last Admin: 08/02/18 03:22 Dose: 40 mg Pantoprazole Sodium (Protonix Iv) 40 mg IV Q24H [facility] Last Admin: 08/03/18 07:20 Dose: Not Given Pantoprazole Sodium (Protonix Iv) Confirm Administered Dose 40 mg .ROUTE .STK -MED ONE Stop: 08/02/18 03:21 Last Admin: 08/02/18 15:05 Dose: Not Given Pantoprazole Sodium (Protonix Iv) 40 mg IVPUSH Q12H [facility] Last Admin: 08/04/18 04:04 Dose: 40 mg Potassium Chloride (Klor-Con M20) 40 meq PO ONETIME ONE Stop: 08/05/18 05:38 Last Admin: 08/05/18 06:07 Dose: 40 meq Potassium Chloride (Klor-Con M20) 40 meq PO ONETIME ONE Stop: 08/05/18 09:01 Last Admin: 08/05/18 09:25 Dose: 40 meq Potassium Chloride (Klor-Con M20) 40 meq PO ONETIME ONE Stop: 08/06/18 09:01 Last Admin: 08/06/18 12:24 Dose: 40 meq Propofol (Diprivan 20 Ml) Confirm Administered Dose 200 mg .ROUTE .STK-MED ONE Stop: 08/03/18 12:21 Thiamine HCl (Vitamin B-1) Confirm Administered Dose 200 mg .ROUTE .STK-MED ONE Stop: 08/02/18 02:46 Last Admin: 08/02/18 15:04 Dose: Not Given - Exam Quality Assessment: Urine Catheter, DVT Prophylaxis General: Sedated, Lethargic Lungs: Clear to Auscultation, Normal Respiratory Effort Cardiovascular: Regular Rate, Regular Rhythm, No Murmurs GI/Abdominal Exam: Soft, Non-Tender, No Organomegaly, No Distention - Problem List Review Problem List Initiated/Reviewed/Updated: Yes - My Orders Last 24 Hours: My Active Orders 08/06/18 12:00 Levofloxacin/Dextrose 5%-Water [Levaquin in D5W 750 MG/150 ML] 750 mg Premix Bag 1 bag IV Q24H 08/06/18 14:00 Gabapentin [Neurontin] 200 mg PO TID 08/07/18 08:00 Communication Order [RC] BID 08/07/18 09:00 Magnesium Sulfate/Water [Magnesium Sulfate 2 GM in Water 50 ML] 2 gm Premix Bag 1 bag IV Q6H 08/07/18 Breakfast Regular Diet [DIET] 08/08/18 05:00 BASIC METABOLIC PANEL,BMP [CHEM] Timed INR,PT,PROTHROMBIN TIME [COAG] Timed LIPASE [CHEM] Timed MAGNESIUM [CHEM] Timed - Plan Plan:: ASSESSMENT AND PLAN - Acute alcoholic induced pancreatitis -lipase level remains modestly elevated, no significant abdominal pain on exam -Normal saline 75 mL/h -Regular diet -Repeat lipase level in a.m. -Nausea management as indicated Alcohol withdrawal with delirium - long history of alcohol abuse. Continues to experience withdrawal with delirium and agitation, modestly improved over the past 24 hours -CIWA every hour -Lorazepam alcohol withdrawal protocol -Haldol as needed -Gabapentin 200 mg 3 times a day -Melatonin at bedtime -Thiamine and folate daily Community-acquired pneumonia-chest x-ray shows infiltrate left lung, white blood cell count remains elevated, he is been afebrile, with normalization of white blood cell count -Continue levofloxacin Urinary retention-likely secondary to BPH -[place] catheter, attempt to remove in the next day or 2 -Flomax 0.4 mg by mouth daily Possible gastrointestinal hemorrhage - no further evidence of bleeding, EGD unremarkable for bleeding source -Oral Protonix Maintenance issues - - DVT prophylaxis - mechanical with possible active hemorrhage - GI prophylaxis - PPI - Nutrition - nothing by mouth - [place] catheter - not indicated Disposition - I would anticipate discharge home after the hospital stay Primary care physician - Kimberly Vega - Delfin Kathleen
[2018-08-07] MEDS: Levofloxacin/Dextrose 5%-Water 750 MG in Premix Bag 1 BAG IV SCH (11:12)
[2018-08-07] MEDS: Ibuprofen 400 MG Tab PO PRN (14:02)
[2018-08-07] MEDS: Melatonin 3 MG Tab PO SCH (20:17)
[2018-08-08] MEDS: Pantoprazole 40 MG Tab.CR PO SCH (08:05)
[2018-08-08] MEDS: Ibuprofen 400 MG Tab PO PRN ×3 (08:47→21:27)
[2018-08-08] MEDS: LORazepam 1 MG Tab PO SCH ×4 (08:50→21:27)
[2018-08-08] MEDS: Thiamine 100 MG Tab PO SCH (08:51)
[2018-08-08] MEDS: Gabapentin 100 MG Cap PO SCH ×3 (08:51→20:31)
[2018-08-08] MEDS: Lactobacillus Rhamnosus GG (Probiotic) Cap PO SCH ×2 (08:51→20:31)
[2018-08-08] MEDS: Tamsulosin 0.4 MG Cap.ER PO SCH (08:51)
[2018-08-08] MEDS ORDERED: Potassium Chloride 20 MEQ Tab.ER PO ONE (09:30)
--- NOTE | 2018-08-08 09:50 | PCM.PN ---
- General Info Date of Service: 08/08/18 Subjective Update: Mr. Ortega continues to slowly improve, much less agitated than he had been previously, remains fairly confused and slow. Functional Status: Reports: Pain Controlled, Tolerating Diet - Review of Systems General: Reports: Weakness. Denies: Fever, Chills Pulmonary: Reports: No Symptoms Cardiovascular: Reports: No Symptoms Gastrointestinal: Reports: No Symptoms - Patient Data Vitals - Most Recent: Last Vital Signs Temp 97.9 F 08/08/18 08:00 Pulse 57 L 08/08/18 08:00 Resp 20 08/08/18 08:00 BP 125/84 08/08/18 08:00 Pulse Ox 98 08/08/18 08:00 Weight - Most Recent: 162 lb 0.001 oz I&O - Last 24 Hours: Intake & Output 08/07/18 08/08/18 08/08/18 22:59 06:59 14:59 Intake Total 1094 958 Output Total 600 1000 Balance 494 -42 Lab Results Last 24 Hours: Laboratory Results - last 24 hr 08/08/18 08/08/18 Range/Units 05:00 05:00 PT 10.4 (9.5-12.0) sec INR 0.94 (0.80-1.20) Sodium 139 L (140-148) mmol/L Potassium 3.2 L (3.6-5.2) mmol/L Chloride 108 (100-108) mmol/L Carbon Dioxide 23 (21-32) mmol/L Anion Gap 11.2 (5.0-14.0) mmol/L BUN 3 L (7-18) mg/dL Creatinine 0.7 L (0.8-1.3) mg/dL Est Cr Clr Drug Dosing 123.93 mL/min Estimated GFR (MDRD) > 60 (>60) Glucose 114 H (74-106) mg/dL Calcium 8.4 L (8.5-10.1) mg/dL Magnesium 1.4 L (1.8-2.4) mg/dL Lipase 558 H (73-393) U/L Lonnie Results Last 24 Hours: Microbiology 08/03/18 17:00 Aerobic Blood Culture - Preliminary Blood - Venous NO GROWTH AFTER 4 DAYS Anaerobic Blood Culture - Preliminary NO GROWTH AFTER 4 DAYS 08/03/18 16:30 Aerobic Blood Culture - Preliminary Blood - Venous - Lab Draw NO GROWTH AFTER 4 DAYS Anaerobic Blood Culture - Preliminary NO GROWTH AFTER 4 DAYS Med Orders - Current: Current Medications Acetaminophen (Tylenol) 650 mg PO Q4H PRN PRN Reason: ANALGESIA/FEVER Last Admin: 08/05/18 12:12 Dose: 650 mg Acetaminophen (Tylenol) 650 mg RECTAL Q4H PRN PRN Reason: ANALGESIA/FEVER Al Hydroxide/Mg Hydroxide (Mag-Al Plus) 30 ml PO Q4H PRN PRN Reason: DYSPEPSIA Albuterol (Proventil Neb Soln) 2.5 mg NEB Q4H PRN PRN Reason: Shortness Of Breath/wheezing Bisacodyl (Dulcolax) 10 mg RECTAL DAILY PRN PRN Reason: CONSTIPATION Calcium Carbonate/Glycine (Tums) 500 - 1,000 mg PO Q4H PRN PRN Reason: DYSPEPSIA Diphenhydramine HCl (Benadryl) 25 mg PO Q4H PRN PRN Reason: ITCHING/ANXIETY Last Admin: 08/06/18 13:32 Dose: 25 mg Docusate Sodium (Colace) 100 mg PO DAILY PRN PRN Reason: CONSTIPATION Gabapentin (Neurontin) 200 mg PO TID [facility] Last Admin: 08/08/18 08:51 Dose: 200 mg Haloperidol Lactate (Haldol) 8 mg IVPUSH Q2H PRN PRN Reason: Agitation Last Admin: 08/07/18 19:40 Dose: 8 mg Hydromorphone HCl (Dilaudid) 0.5 mg IVPUSH Q2H PRN PRN Reason: Abdominal Pain Last Admin: 08/07/18 20:18 Dose: 0.5 mg Sodium Chloride (Normal Saline) 1,000 mls @ 75 mls/hr IV ASDIRECTED [facility] Last Admin: 08/07/18 22:52 Dose: 75 mls/hr Levofloxacin/Dextrose 750 mg/ (Premix) 150 mls @ 100 mls/hr IV Q24H [facility] Last Admin: 08/07/18 11:12 Dose: 100 mls/hr Magnesium Sulfate 2 gm/ Premix 50 mls @ 25 mls/hr IV Q6H [facility] Stop: 08/08/18 23:59 Ibuprofen (Motrin) 400 mg PO Q6H PRN PRN Reason: Fever Last Admin: 08/08/18 08:47 Dose: 400 mg Ketorolac Tromethamine (Toradol) 10 mg PO Q6H PRN PRN Reason: Pain Stop: 08/13/18 09:46 Lactobacillus Rhamnosus (Culturelle) 1 cap PO BID [facility] Last Admin: 08/08/18 08:51 Dose: 1 cap Lorazepam (Ativan) 0 mg IV ASDIRECTED [facility]; Protocol Last Admin: 08/07/18 20:18 Dose: 2 mg Lorazepam (Ativan) 0 mg PO ASDIRECTED [facility]; Protocol Last Admin: 08/08/18 08:50 Dose: 1 mg Magnesium Hydroxide (Milk Of Magnesia) 30 ml PO BID PRN PRN Reason: CONSTIPATION Melatonin (Melatonin) 9 mg PO BEDTIME [facility] Last Admin: 08/07/18 20:17 Dose: 9 mg Ondansetron HCl (Zofran) 4 mg IVPUSH Q8H PRN PRN Reason: Nausea Last Admin: 08/02/18 03:50 Dose: 4 mg Ondansetron HCl (Zofran Odt) 4 mg PO Q6H PRN PRN Reason: Nausea able to take PO Last Admin: 08/03/18 13:46 Dose: 4 mg Pantoprazole Sodium (Protonix) 40 mg PO ACBREAKFAST [facility] Last Admin: 08/08/18 08:05 Dose: 40 mg Polyethylene Glycol (Miralax) 17 gm PO DAILY PRN PRN Reason: Constipation Sodium Chloride (Saline Flush) 10 ml FLUSH ASDIRECTED PRN PRN Reason: Keep Vein Open Tamsulosin HCl (Flomax) 0.4 mg PO DAILY [facility] Last Admin: 08/08/18 08:51 Dose: 0.4 mg Thiamine HCl (Vitamin B-1) 100 mg PO DAILY [facility] Last Admin: 08/08/18 08:51 Dose: 100 mg Discontinued Medications Fentanyl (Sublimaze) Confirm Administered Dose 100 mcg .ROUTE .STK-MED ONE Stop: 08/03/18 12:21 Folic Acid (Folic Acid) Confirm Administered Dose 50 mg .ROUTE .STK-MED ONE Stop: 08/02/18 02:46 Last Admin: 08/02/18 15:03 Dose: Not Given Gabapentin (Neurontin) 400 mg PO TID [facility] Last Admin: 08/06/18 08:01 Dose: 400 mg Haloperidol Lactate (Haldol) 2 mg IVPUSH Q4H PRN PRN Reason: Agitation Last Admin: 08/04/18 08:40 Dose: 2 mg Haloperidol Lactate (Haldol) 2 mg IVPUSH Q2H PRN PRN Reason: Agitation Last Admin: 08/04/18 14:29 Dose: 2 mg Haloperidol Lactate (Haldol) 3 mg IVPUSH Q2H PRN PRN Reason: Agitation Last Admin: 08/04/18 16:17 Dose: 3 mg Haloperidol Lactate (Haldol) 5 mg IVPUSH ONETIME ONE Stop: 08/04/18 17:33 Last Admin: 08/04/18 17:44 Dose: 5 mg Haloperidol Lactate (Haldol) 5 mg IVPUSH Q2H PRN PRN Reason: Agitation Last Admin: 08/05/18 18:49 Dose: 5 mg Hydromorphone HCl (Dilaudid Benzene Washer 15 Mg In Ns 30 Ml) 0 mg IV ASDIRECTED PRN; Protocol PRN Reason: [employer] PAIN CONTROL Last Admin: 08/03/18 13:56 Dose: 15 mg Hydromorphone HCl (Dilaudid) 1 mg IV NOW ONE Stop: 08/02/18 08:46 Last Admin: 08/02/18 11:21 Dose: Not Given Hydromorphone HCl (Dilaudid) 1 mg IV Q2H PRN PRN Reason: PAIN Stop: 08/02/18 08:40 Last Admin: 08/02/18 08:17 Dose: 1 mg Hydromorphone HCl (Dilaudid) 1 mg IVPUSH ONETIME ONE Stop: 08/02/18 01:51 Last Admin: 08/02/18 01:50 Dose: 1 mg Hydromorphone HCl (Dilaudid) Confirm Administered Dose 1 mg .ROUTE .STK-MED ONE Stop: 08/02/18 01:48 Last Admin: 08/02/18 15:03 Dose: Not Given Hydromorphone HCl (Dilaudid) Confirm Administered Dose 1 mg .ROUTE .STK-MED ONE Stop: 08/02/18 03:05 Last Admin: 08/02/18 15:05 Dose: Not Given Hydromorphone HCl (Dilaudid) Confirm Administered Dose 1 mg .ROUTE .STK-MED ONE Stop: 08/02/18 08:19 Last Admin: 08/02/18 15:04 Dose: Not Given Sodium Chloride (Normal Saline) 1,000 mls @ 125 mls/hr IV ASDIRECTED [facility] Last Admin: 08/03/18 12:05 Dose: 125 mls/hr Multivitamins/Minerals 10 ml/Magnesium Sulfate 2 gm/ Folic Acid 1 mg/ Thiamine HCl 100 mg / Sodium Chloride 1,015.2 mls @ 1,000 mls/hr IV ONETIME ONE Stop: 08/02/18 03:10 Last Admin: 08/02/18 03:30 Dose: 1,000 mls/hr Pantoprazole Sodium 80 mg/ (Sodium Chloride) 100 mls @ 10 mls/hr IV .Q10H [facility] Last Admin: 08/03/18 06:27 Dose: 10 mls/hr Sodium Chloride (Normal Saline) 250 mls @ 500 mls/hr IV ASDIRECTED [facility] Last Admin: 08/02/18 01:40 Dose: 500 mls/hr Sodium Chloride (Normal Saline) 1,000 mls @ 50 mls/hr IV ASDIRECTED [facility] Piperacillin/Tazobactam/ (Dextrose 3.375 gm/ Premix) 50 mls @ 100 mls/hr IV Q6H [facility] Last Admin: 08/06/18 10:28 Dose: 100 mls/hr Sodium Chloride (Normal Saline) 1,000 mls @ 125 mls/hr IV ASDIRECTED [facility] Last Admin: 08/04/18 04:07 Dose: 125 mls/hr Sodium Chloride (Normal Saline) 1,000 mls @ 50 mls/hr IV ASDIRECTED [facility] Last Admin: 08/05/18 13:10 Dose: 50 mls/hr Magnesium Sulfate 2 gm/ Premix 50 mls @ 25 mls/hr IV Q6H [facility] Stop: 08/06/18 04:59 Last Admin: 08/06/18 02:33 Dose: 25 mls/hr Magnesium Sulfate 2 gm/ Premix 50 mls @ 25 mls/hr IV Q6H [facility] Stop: 08/07/18 22:59 Last Admin: 08/07/18 20:17 Dose: 25 mls/hr Lorazepam (Ativan) 1 mg IVPUSH Q2H PRN PRN Reason: AGITATION Last Admin: 08/02/18 10:29 Dose: 1 mg Lorazepam (Ativan) Confirm Administered Dose 2 mg .ROUTE .STK-MED ONE Stop: 08/02/18 03:30 Last Admin: 08/02/18 15:06 Dose: Not Given Lorazepam (Ativan) Confirm Administered Dose 2 mg .ROUTE .STK-MED ONE Stop: 08/02/18 08:11 Last Admin: 08/02/18 15:07 Dose: Not Given Lorazepam (Ativan) Confirm Administered Dose 2 mg .ROUTE .STK-MED ONE Stop: 08/02/18 10:21 Last Admin: 08/02/18 15:07 Dose: Not Given Magnesium Sulfate (Magnesium Sulfate 50%) Confirm Administered Dose 2 gm .ROUTE .STK-MED ONE Stop: 08/02/18 02:46 Last Admin: 08/02/18 15:03 Dose: Not Given Methylprednisolone Sodium Succinate (Solu-Medrol) 125 mg IVPUSH ONETIME ONE Stop: 08/03/18 17:31 Last Admin: 08/03/18 17:13 Dose: 125 mg Methylprednisolone Sodium Succinate (Solu-Medrol) 40 mg IVPUSH Q6H [facility] Last Admin: 08/04/18 04:04 Dose: 40 mg Midazolam HCl (Versed 1 Mg/Ml) Confirm Administered Dose 2 mg .ROUTE .STK-MED ONE Stop: 08/03/18 12:21 Multivitamins/Minerals (Infuvite Adult) Confirm Administered Dose 10 ml IV .STK- MED ONE Stop: 08/02/18 02:47 Last Admin: 08/02/18 15:04 Dose: Not Given Naloxone HCl (Narcan) 0.1 mg IV ASDIRECTED PRN PRN Reason: decreased respiratory rate Ondansetron HCl (Zofran) Confirm Administered Dose 4 mg .ROUTE .STK-MED ONE Stop: 08/02/18 03:51 Last Admin: 08/02/18 15:06 Dose: Not Given Pantoprazole Sodium (Protonix Iv) 40 mg IV ONETIME ONE Stop: 08/02/18 03:31 Last Admin: 08/02/18 03:22 Dose: 40 mg Pantoprazole Sodium (Protonix Iv) 40 mg IV Q24H [facility] Last Admin: 08/03/18 07:20 Dose: Not Given Pantoprazole Sodium (Protonix Iv) Confirm Administered Dose 40 mg .ROUTE .STK -MED ONE Stop: 08/02/18 03:21 Last Admin: 08/02/18 15:05 Dose: Not Given Pantoprazole Sodium (Protonix Iv) 40 mg IVPUSH Q12H [facility] Last Admin: 08/04/18 04:04 Dose: 40 mg Potassium Chloride (Klor-Con M20) 40 meq PO ONETIME ONE Stop: 08/05/18 05:38 Last Admin: 08/05/18 06:07 Dose: 40 meq Potassium Chloride (Klor-Con M20) 40 meq PO ONETIME ONE Stop: 08/05/18 09:01 Last Admin: 08/05/18 09:25 Dose: 40 meq Potassium Chloride (Klor-Con M20) 40 meq PO ONETIME ONE Stop: 08/06/18 09:01 Last Admin: 08/06/18 12:24 Dose: 40 meq Potassium Chloride (Klor-Con M20) 40 meq PO ONETIME ONE Stop: 08/08/18 09:31 Propofol (Diprivan 20 Ml) Confirm Administered Dose 200 mg .ROUTE .STK-MED ONE Stop: 08/03/18 12:21 Thiamine HCl (Vitamin B-1) Confirm Administered Dose 200 mg .ROUTE .STK-MED ONE Stop: 08/02/18 02:46 Last Admin: 08/02/18 15:04 Dose: Not Given - Exam General: Sedated, Lethargic Lungs: Clear to Auscultation, Normal Respiratory Effort Cardiovascular: Regular Rate, Regular Rhythm GI/Abdominal Exam: Soft, Non-Tender, No Organomegaly Extremities: Non-Tender, No Pedal Edema Psy/Mental Status: Withdrawal Symptoms, Other (Confused). No: Agitated, Hallucinations - Problem List Review Problem List Initiated/Reviewed/Updated: Yes - My Orders Last 24 Hours: My Active Orders 08/08/18 09:45 Ketorolac [Toradol] 10 mg PO Q6H PRN 08/08/18 10:00 Magnesium Sulfate/Water [Magnesium Sulfate 2 GM in Water 50 ML] 2 gm Premix Bag 1 bag IV Q6H 08/09/18 05:00 BASIC METABOLIC PANEL,BMP [CHEM] Timed LIPASE [CHEM] Timed MAGNESIUM [CHEM] Timed - Plan Plan:: ASSESSMENT AND PLAN - Acute alcoholic induced pancreatitis -lipase level remains modestly elevated, no significant abdominal pain on exam -Saline lock IV -Regular diet -Repeat lipase level in a.m. -Nausea management as indicated Alcohol withdrawal with delirium - long history of alcohol abuse. Improving, much less agitation, still confused -CIWA every hour -Lorazepam alcohol withdrawal protocol -Haldol as needed -Gabapentin 200 mg 3 times a day -Melatonin at bedtime -Thiamine and folate daily Community-acquired pneumonia-chest x-ray shows infiltrate left lung, white blood cell count remains elevated, he is been afebrile, with normalization of white blood cell count -Continue levofloxacin Urinary retention-likely secondary to BPH -Remove [place] catheter -Flomax 0.4 mg by mouth daily Possible gastrointestinal hemorrhage - no further evidence of bleeding, EGD unremarkable for bleeding source -Oral Protonix Maintenance issues - - DVT prophylaxis - mechanical with possible active hemorrhage - GI prophylaxis - PPI - Nutrition - nothing by mouth - [place] catheter - not indicated Disposition - I would anticipate discharge home after the hospital stay Primary care physician - Kimberly Vega - Delfin Kathleen
[2018-08-08] MEDS ORDERED: Levofloxacin 250 MG Tab PO SCH (10:00)
[2018-08-08] MEDS: Magnesium Sulfate/Water 2 GM in Premix Bag 1 BAG IV SCH ×3 (10:16→21:27)
[2018-08-08] MEDS: Ketorolac 10 MG Tab PO PRN ×2 (10:26→18:02)
[2018-08-08] MEDS: Melatonin 3 MG Tab PO SCH (20:31)
[2018-08-08] MEDS: LORazepam 2 MG/ML SDV IV SCH (22:48)
[2018-08-08] MEDS: HYDROmorphone 0.5 MG/0.5 ML Syringe IVPUSH PRN (22:49)
[2018-08-09] MEDS: LORazepam 2 MG/ML SDV IV SCH (00:54)
[2018-08-09] MEDS: HYDROmorphone 0.5 MG/0.5 ML Syringe IVPUSH PRN (00:57)
[2018-08-09] MEDS: Ibuprofen 400 MG Tab PO PRN (04:40)
[2018-08-09] MEDS: LORazepam 1 MG Tab PO SCH (04:40)
[2018-08-09] MEDS: Pantoprazole 40 MG Tab.CR PO SCH (07:26)
[2018-08-09] MEDS: Acetaminophen 325 MG Tab PO PRN (07:32)
[2018-08-09] MEDS: diphenhydrAMINE 25 MG Cap PO PRN (07:33)
[2018-08-09] MEDS: Gabapentin 100 MG Cap PO SCH ×2 (08:51→13:58)
[2018-08-09] MEDS: Lactobacillus Rhamnosus GG (Probiotic) Cap PO SCH (08:51)
[2018-08-09] MEDS: Thiamine 100 MG Tab PO SCH (08:52)
[2018-08-09] MEDS: Tamsulosin 0.4 MG Cap.ER PO SCH (08:52)
[2018-08-09] MEDS ORDERED: Magnesium Sulfate/Water 2 GM in Premix Bag 1 BAG IV SCH (09:00)
[2018-08-09] MEDS ORDERED: Potassium Chloride 20 MEQ Tab.ER PO ONE (09:30)
[2018-08-09] MEDS ORDERED: Iopamidol 612 MG/ML 100 ML Bottle IV PRN (09:48)
--- NOTE | 2018-08-09 10:36 | CRLCT ---
INDICATION: Left-sided headaches. COMPARISON: None. TECHNIQUE: Axial CT of the head without and with IV contrast. FINDINGS: Normal brain parenchymal morphology. No acute intracranial hemorrhage, focal edema, acute infarct, mass effect, or fracture. No midline shift. No abnormal ventricular dilatation. Post-contrast imaging demonstrates no abnormal enhancement or enhancing lesions. Normal calvarium and skull base. Visualized paranasal sinuses and mastoid air cells are clear. Visualized orbits are unremarkable. IMPRESSION: 1. No acute intracranial abnormality. 2. Normal brain parenchymal morphology. 3. No abnormal enhancement or enhancing lesions. Dictated by Holden Jimenez MD @ 08/09/2018 10:34:11 AM Please note that all CT scans at this facility use dose modulation, iterative reconstruction, and/or weight-based dosing when appropriate to reduce radiation dose to as low as reasonably achievable. Dictated by: Holden Jimenez MD @ 08/09/2018 10:34:18 (Electronically Signed)
--- NOTE | 2018-08-09 13:15 | PCM.DCSUM1 ---
Discharge Summary - Hospital Course Brief History: Mr. Ortega is a 53-year-old gentleman who was admitted through the emergency department with abdominal pain and pancreatitis secondary to long- standing daily alcohol use. - Discharge Data Discharge Date: 08/09/18 Discharge Disposition: Home, Self-Care 01 Condition: Fair - Discharge Diagnosis/Problem(s) (1) Urinary retention due to benign prostatic hyperplasia SNOMED Code(s): 780012499 ICD Code: N40.1 - BENIGN PROSTATIC HYPERPLASIA WITH LOWER URINARY TRACT SYMP ; R33.8 - OTHER RETENTION OF URINE Status: Acute Current Visit: Yes (2) Community acquired bacterial pneumonia SNOMED Code(s): 955260138, 783935146 ICD Code: J15.9 - UNSPECIFIED BACTERIAL PNEUMONIA Status: Acute Current Visit: Yes (3) Hematemesis with nausea SNOMED Code(s): 9645149, 31686149 ICD Code: K92.0 - HEMATEMESIS Status: Acute Current Visit: Yes (4) Alcohol withdrawal delirium, acute, hyperactive SNOMED Code(s): 5886413, 03479517 ICD Code: F10.231 - ALCOHOL DEPENDENCE WITH WITHDRAWAL DELIRIUM Status: Acute Current Visit: Yes (5) Acute alcoholic pancreatitis SNOMED Code(s): 530974403 ICD Code: K85.20 - ALCOHOL INDUCED ACUTE PANCREATITIS WITHOUT NECROSIS OR INFCT Status: Acute Current Visit: Yes (6) Alcoholic hepatitis SNOMED Code(s): 472767245 ICD Code: K70.10 - ALCOHOLIC HEPATITIS WITHOUT ASCITES Status: Acute Current Visit: No Qualifiers: Ascites presence: without ascites Qualified Code(s): K70.10 - Alcoholic hepatitis without ascites (7) Alcohol intoxication SNOMED Code(s): 92932585 ICD Code: F10.929 - ALCOHOL USE, UNSPECIFIED WITH INTOXICATION, UNSPECIFIED Status: Acute Current Visit: No Qualifiers: Complication of substance-induced condition: with unspecified complication Qualified Code(s): F10.929 - Alcohol use, unspecified with intoxication, unspecified - Patient Summary/Data Consults: Consultations 08/02/18 10:32 Consult to Physician [CONS] Routine Consulting Provider: Amos Dukes Courtesy Call Completed to Consulting Physician: Yes Reason for Consult: hematemesis Person Notified: BDB Date Notified: 08/02/18 Special Instructions: EGD tomorrow Hospital Course: Mr. Ortega is a 53-year-old gentleman who was admitted through the emergency department with nausea and vomiting as well as supraumbilical abdominal pain secondary to recurrent pancreatitis, secondary to long-standing daily alcohol use. He has had 2 previous admissions with alcohol-induced pancreatitis over the past several weeks. After discharge from these admissions would immediately start alcohoh consumption. He was intoxicated time of admission, laboratory studies also showed evidence of colic hepatitis with elevation in liver studies. He was given IV fluids for hydration as well as anti-medic therapy and pain medication. By the following day began to experience significant alcohol withdrawal, with hallucinations, delirium, and agitation. The day after admission he also experienced an emesis with coffee-ground appearing material that was found to be heme positive. He was started on IV Protonix and seen the following day by Dr. Hooper for surgical consult. EGD was performed which showed only a small amount of gastritis and no other significant abnormalities. Later that day he developed temperature elevation and was found to have elevation in white blood cell count. Chest x-ray showed obvious left lung infiltrate consistent with pneumonia. This was within 48 hours of admission and it was felt to represent a community-acquired pneumonia. He was started on IV antibiotic therapy with levofloxacin and Zosyn. Within a few days Zosyn was discontinued and he completed a full course of levofloxacin prior to discharge. He also developed urinary retention while in the hospital requiring placement of a [place] catheter. This was felt to be secondary to BPH, he was started on Flomax 0.4 mg daily. Catheter was removed within several days of discharge and he was able to urinate without significant difficulty. He was placed on gabapentin on admission for management of alcohol withdrawal, usual course. Fortunately he still developed very severe delirium tremens with several days of hallucinations and agitation. By the time of discharge he was very clear cognitively and back to normal physical function. He is committed to avoiding further alcohol use and is interested in inpatient treatment. Follow-up appointment will be scheduled with his primary care provider within one week. Outpatient rule 25 assessment will be scheduled for him tomorrow as well as assistance in obtaining inpatient treatment. Activity will be as tolerated and he will resume usual diet. Prior to discharge we had a very open and prolonged discussion concerning his alcohol use and effects on his physical health. Given the recurrent episodes of pancreatitis further alcohol use over the next several months will likely result in his . I also explained to him that if he should have another admission in the near future with pancreatitis secondary to alcohol use that we will need to consider proceeding with commitment and forced alcohol treatment. - Patient Instructions Diet: Usual Diet as Tolerated, No Alcoholic Beverages Activity: As Tolerated Other/Special Instructions: Please schedule follow-up appointment with primary care provider within one week. Please arrange for rule 25 assessment as an outpatient. Please arrange for inpatient chemical dependency treatment after rule 25 assessment has been completed. - Discharge Plan *PRESCRIPTION DRUG MONITORING PROGRAM REVIEWED*: Not Applicable *COPY OF PRESCRIPTION DRUG MONITORING REPORT IN PATIENT EMIGDIO: Not Applicable Prescriptions/Med Rec: Pantoprazole [ProTONIX] 40 mg PO ACBREAKFAST #30 tab.cr Tamsulosin [Flomax] 0.4 mg PO DAILY #30 cap.er Home Medications: Home Meds Gabapentin [Neurontin] 900 mg PO TID 02/22/18 [History] Pantoprazole [ProTONIX] 40 mg PO ACBREAKFAST #30 tab.cr 08/09/18 [Rx] Tamsulosin [Flomax] 0.4 mg PO DAILY #30 cap.er 08/09/18 [Rx] - Discharge Summary/Plan Comment DC Time >30 min.: No - Patient Data Vitals - Most Recent: Last Vital Signs Temp 96.8 F 08/09/18 07:40 Pulse 85 08/09/18 09:00 Resp 15 08/09/18 09:00 BP 147/90 H 08/09/18 09:00 Pulse Ox 99 08/09/18 09:00 Weight - Most Recent: 162 lb 0.001 oz I&O - Last 24 hours: Intake & Output 08/08/18 08/09/18 08/09/18 21:59 06:59 14:59 Intake Total 240 Output Total 500 Balance -260 Lab Results - Last 24 hrs: Laboratory Results - last 24 hr 08/09/18 Range/Units 05:36 Sodium 139 L (140-148) mmol/L Potassium 3.5 L (3.6-5.2) mmol/L Chloride 105 (100-108) mmol/L Carbon Dioxide 24 (21-32) mmol/L Anion Gap 13.5 (5.0-14.0) mmol/L BUN 7 D (7-18) mg/dL Creatinine 0.7 L (0.8-1.3) mg/dL Est Cr Clr Drug Dosing 123.93 mL/min Estimated GFR (MDRD) > 60 (>60) Glucose 108 H (74-106) mg/dL Calcium 8.6 (8.5-10.1) mg/dL Magnesium 1.6 L (1.8-2.4) mg/dL Lipase 543 H (73-393) U/L AUGIE Results - Last 24 hrs: Microbiology 08/03/18 16:30 Aerobic Blood Culture - Final Blood - Venous - Lab Draw NO GROWTH AFTER 5 DAYS Anaerobic Blood Culture - Final NO GROWTH AFTER 5 DAYS 08/03/18 17:00 Aerobic Blood Culture - Final Blood - Venous NO GROWTH AFTER 5 DAYS Anaerobic Blood Culture - Final NO GROWTH AFTER 5 DAYS Med Orders - Current: Current Medications Acetaminophen (Tylenol) 650 mg PO Q4H PRN PRN Reason: ANALGESIA/FEVER Last Admin: 08/09/18 07:32 Dose: 650 mg Acetaminophen (Tylenol) 650 mg RECTAL Q4H PRN PRN Reason: ANALGESIA/FEVER Al Hydroxide/Mg Hydroxide (Mag-Al Plus) 30 ml PO Q4H PRN PRN Reason: DYSPEPSIA Albuterol (Proventil Neb Soln) 2.5 mg NEB Q4H PRN PRN Reason: Shortness Of Breath/wheezing Bisacodyl (Dulcolax) 10 mg RECTAL DAILY PRN PRN Reason: CONSTIPATION Calcium Carbonate/Glycine (Tums) 500 - 1,000 mg PO Q4H PRN PRN Reason: DYSPEPSIA Diphenhydramine HCl (Benadryl) 25 mg PO Q4H PRN PRN Reason: ITCHING/ANXIETY Last Admin: 08/09/18 07:33 Dose: 25 mg Docusate Sodium (Colace) 100 mg PO DAILY PRN PRN Reason: CONSTIPATION Gabapentin (Neurontin) 200 mg PO TID [facility] Last Admin: 08/09/18 08:51 Dose: 200 mg Haloperidol Lactate (Haldol) 8 mg IVPUSH Q2H PRN PRN Reason: Agitation Last Admin: 08/07/18 19:40 Dose: 8 mg Hydromorphone HCl (Dilaudid) 0.5 mg IVPUSH Q2H PRN PRN Reason: Abdominal Pain Last Admin: 08/09/18 00:57 Dose: 0.5 mg Magnesium Sulfate 2 gm/ Premix 50 mls @ 25 mls/hr IV Q6H [facility] Stop: 08/09/18 16:59 Last Admin: 08/09/18 08:51 Dose: 25 mls/hr Ibuprofen (Motrin) 400 mg PO Q6H PRN PRN Reason: Fever Last Admin: 08/09/18 04:40 Dose: 400 mg Ketorolac Tromethamine (Toradol) 10 mg PO Q6H PRN PRN Reason: Pain Stop: 08/13/18 09:46 Last Admin: 08/08/18 18:02 Dose: 10 mg Lactobacillus Rhamnosus (Culturelle) 1 cap PO BID [facility] Last Admin: 08/09/18 08:51 Dose: 1 cap Lorazepam (Ativan) 0 mg IV ASDIRECTED [facility]; Protocol Last Admin: 08/09/18 00:54 Dose: 2 mg Lorazepam (Ativan) 0 mg PO ASDIRECTED [facility]; Protocol Last Admin: 08/09/18 04:40 Dose: 1 mg Magnesium Hydroxide (Milk Of Magnesia) 30 ml PO BID PRN PRN Reason: CONSTIPATION Melatonin (Melatonin) 9 mg PO BEDTIME [facility] Last Admin: 08/08/18 20:31 Dose: 9 mg Ondansetron HCl (Zofran) 4 mg IVPUSH Q8H PRN PRN Reason: Nausea Last Admin: 08/02/18 03:50 Dose: 4 mg Ondansetron HCl (Zofran Odt) 4 mg PO Q6H PRN PRN Reason: Nausea able to take PO Last Admin: 08/03/18 13:46 Dose: 4 mg Pantoprazole Sodium (Protonix) 40 mg PO ACBREAKFAST [facility] Last Admin: 08/09/18 07:26 Dose: 40 mg Polyethylene Glycol (Miralax) 17 gm PO DAILY PRN PRN Reason: Constipation Sodium Chloride (Saline Flush) 10 ml FLUSH ASDIRECTED PRN PRN Reason: Keep Vein Open Tamsulosin HCl (Flomax) 0.4 mg PO DAILY [facility] Last Admin: 08/09/18 08:52 Dose: 0.4 mg Thiamine HCl (Vitamin B-1) 100 mg PO DAILY [facility] Last Admin: 08/09/18 08:52 Dose: 100 mg Discontinued Medications Fentanyl (Sublimaze) Confirm Administered Dose 100 mcg .ROUTE .STK-MED ONE Stop: 08/03/18 12:21 Folic Acid (Folic Acid) Confirm Administered Dose 50 mg .ROUTE .STK-MED ONE Stop: 08/02/18 02:46 Last Admin: 08/02/18 15:03 Dose: Not Given Gabapentin (Neurontin) 400 mg PO TID [facility] Last Admin: 08/06/18 08:01 Dose: 400 mg Haloperidol Lactate (Haldol) 2 mg IVPUSH Q4H PRN PRN Reason: Agitation Last Admin: 08/04/18 08:40 Dose: 2 mg Haloperidol Lactate (Haldol) 2 mg IVPUSH Q2H PRN PRN Reason: Agitation Last Admin: 08/04/18 14:29 Dose: 2 mg Haloperidol Lactate (Haldol) 3 mg IVPUSH Q2H PRN PRN Reason: Agitation Last Admin: 08/04/18 16:17 Dose: 3 mg Haloperidol Lactate (Haldol) 5 mg IVPUSH ONETIME ONE Stop: 08/04/18 17:33 Last Admin: 08/04/18 17:44 Dose: 5 mg Haloperidol Lactate (Haldol) 5 mg IVPUSH Q2H PRN PRN Reason: Agitation Last Admin: 08/05/18 18:49 Dose: 5 mg Hydromorphone HCl (Dilaudid Packaging Coordinator 15 Mg In Ns 30 Ml) 0 mg IV ASDIRECTED PRN; Protocol PRN Reason: [employer] PAIN CONTROL Last Admin: 08/03/18 13:56 Dose: 15 mg Hydromorphone HCl (Dilaudid) 1 mg IV NOW ONE Stop: 08/02/18 08:46 Last Admin: 08/02/18 11:21 Dose: Not Given Hydromorphone HCl (Dilaudid) 1 mg IV Q2H PRN PRN Reason: PAIN Stop: 08/02/18 08:40 Last Admin: 08/02/18 08:17 Dose: 1 mg Hydromorphone HCl (Dilaudid) 1 mg IVPUSH ONETIME ONE Stop: 08/02/18 01:51 Last Admin: 08/02/18 01:50 Dose: 1 mg Hydromorphone HCl (Dilaudid) Confirm Administered Dose 1 mg .ROUTE .STK-MED ONE Stop: 08/02/18 01:48 Last Admin: 08/02/18 15:03 Dose: Not Given Hydromorphone HCl (Dilaudid) Confirm Administered Dose 1 mg .ROUTE .STK-MED ONE Stop: 08/02/18 03:05 Last Admin: 08/02/18 15:05 Dose: Not Given Hydromorphone HCl (Dilaudid) Confirm Administered Dose 1 mg .ROUTE .STK-MED ONE Stop: 08/02/18 08:19 Last Admin: 08/02/18 15:04 Dose: Not Given Sodium Chloride (Normal Saline) 1,000 mls @ 125 mls/hr IV ASDIRECTED [facility] Last Admin: 08/03/18 12:05 Dose: 125 mls/hr Multivitamins/Minerals 10 ml/Magnesium Sulfate 2 gm/ Folic Acid 1 mg/ Thiamine HCl 100 mg / Sodium Chloride 1,015.2 mls @ 1,000 mls/hr IV ONETIME ONE Stop: 08/02/18 03:10 Last Admin: 08/02/18 03:30 Dose: 1,000 mls/hr Pantoprazole Sodium 80 mg/ (Sodium Chloride) 100 mls @ 10 mls/hr IV .Q10H [facility] Last Admin: 08/03/18 06:27 Dose: 10 mls/hr Sodium Chloride (Normal Saline) 250 mls @ 500 mls/hr IV ASDIRECTED [facility] Last Admin: 08/02/18 01:40 Dose: 500 mls/hr Sodium Chloride (Normal Saline) 1,000 mls @ 50 mls/hr IV ASDIRECTED [facility] Piperacillin/Tazobactam/ (Dextrose 3.375 gm/ Premix) 50 mls @ 100 mls/hr IV Q6H [facility] Last Admin: 08/06/18 10:28 Dose: 100 mls/hr Sodium Chloride (Normal Saline) 1,000 mls @ 125 mls/hr IV ASDIRECTED [facility] Last Admin: 08/04/18 04:07 Dose: 125 mls/hr Sodium Chloride (Normal Saline) 1,000 mls @ 50 mls/hr IV ASDIRECTED [facility] Last Admin: 08/05/18 13:10 Dose: 50 mls/hr Magnesium Sulfate 2 gm/ Premix 50 mls @ 25 mls/hr IV Q6H [facility] Stop: 08/06/18 04:59 Last Admin: 08/06/18 02:33 Dose: 25 mls/hr Sodium Chloride (Normal Saline) 1,000 mls @ 75 mls/hr IV ASDIRECTED [facility] Last Admin: 08/07/18 22:52 Dose: 75 mls/hr Levofloxacin/Dextrose 750 mg/ (Premix) 150 mls @ 100 mls/hr IV Q24H [facility] Last Admin: 08/07/18 11:12 Dose: 100 mls/hr Magnesium Sulfate 2 gm/ Premix 50 mls @ 25 mls/hr IV Q6H [facility] Stop: 08/07/18 22:59 Last Admin: 08/07/18 20:17 Dose: 25 mls/hr Magnesium Sulfate 2 gm/ Premix 50 mls @ 25 mls/hr IV Q6H [facility] Stop: 08/08/18 23:59 Last Admin: 08/08/18 21:27 Dose: 25 mls/hr Iopamidol (Isovue-300 (61%)) 100 ml IV . DIRECTED PRN PRN Reason: RADIOLOGY EXAM Stop: 08/09/18 11:00 Last Admin: 08/09/18 10:01 Dose: 100 ml Levofloxacin (Levaquin) 750 mg PO Q24H [facility] Last Admin: 08/08/18 10:50 Dose: 750 mg Lorazepam (Ativan) 1 mg IVPUSH Q2H PRN PRN Reason: AGITATION Last Admin: 08/02/18 10:29 Dose: 1 mg Lorazepam (Ativan) Confirm Administered Dose 2 mg .ROUTE .STK-MED ONE Stop: 08/02/18 03:30 Last Admin: 08/02/18 15:06 Dose: Not Given Lorazepam (Ativan) Confirm Administered Dose 2 mg .ROUTE .STK-MED ONE Stop: 08/02/18 08:11 Last Admin: 08/02/18 15:07 Dose: Not Given Lorazepam (Ativan) Confirm Administered Dose 2 mg .ROUTE .STK-MED ONE Stop: 08/02/18 10:21 Last Admin: 08/02/18 15:07 Dose: Not Given Magnesium Sulfate (Magnesium Sulfate 50%) Confirm Administered Dose 2 gm .ROUTE .STK-MED ONE Stop: 08/02/18 02:46 Last Admin: 08/02/18 15:03 Dose: Not Given Methylprednisolone Sodium Succinate (Solu-Medrol) 125 mg IVPUSH ONETIME ONE Stop: 08/03/18 17:31 Last Admin: 08/03/18 17:13 Dose: 125 mg Methylprednisolone Sodium Succinate (Solu-Medrol) 40 mg IVPUSH Q6H [facility] Last Admin: 08/04/18 04:04 Dose: 40 mg Midazolam HCl (Versed 1 Mg/Ml) Confirm Administered Dose 2 mg .ROUTE .STK-MED ONE Stop: 08/03/18 12:21 Multivitamins/Minerals (Infuvite Adult) Confirm Administered Dose 10 ml IV .STK- MED ONE Stop: 08/02/18 02:47 Last Admin: 08/02/18 15:04 Dose: Not Given Naloxone HCl (Narcan) 0.1 mg IV ASDIRECTED PRN PRN Reason: decreased respiratory rate Ondansetron HCl (Zofran) Confirm Administered Dose 4 mg .ROUTE .STK-MED ONE Stop: 08/02/18 03:51 Last Admin: 08/02/18 15:06 Dose: Not Given Pantoprazole Sodium (Protonix Iv) 40 mg IV ONETIME ONE Stop: 08/02/18 03:31 Last Admin: 08/02/18 03:22 Dose: 40 mg Pantoprazole Sodium (Protonix Iv) 40 mg IV Q24H [facility] Last Admin: 08/03/18 07:20 Dose: Not Given Pantoprazole Sodium (Protonix Iv) Confirm Administered Dose 40 mg .ROUTE .STK -MED ONE Stop: 08/02/18 03:21 Last Admin: 08/02/18 15:05 Dose: Not Given Pantoprazole Sodium (Protonix Iv) 40 mg IVPUSH Q12H [facility] Last Admin: 08/04/18 04:04 Dose: 40 mg Potassium Chloride (Klor-Con M20) 40 meq PO ONETIME ONE Stop: 08/05/18 05:38 Last Admin: 08/05/18 06:07 Dose: 40 meq Potassium Chloride (Klor-Con M20) 40 meq PO ONETIME ONE Stop: 08/05/18 09:01 Last Admin: 08/05/18 09:25 Dose: 40 meq Potassium Chloride (Klor-Con M20) 40 meq PO ONETIME ONE Stop: 08/06/18 09:01 Last Admin: 08/06/18 12:24 Dose: 40 meq Potassium Chloride (Klor-Con M20) 40 meq PO ONETIME ONE Stop: 08/08/18 09:31 Last Admin: 08/08/18 10:12 Dose: 40 meq Potassium Chloride (Klor-Con M20) 40 meq PO ONETIME ONE Stop: 08/09/18 09:31 Last Admin: 08/09/18 08:51 Dose: 40 meq Propofol (Diprivan 20 Ml) Confirm Administered Dose 200 mg .ROUTE .STK-MED ONE Stop: 08/03/18 12:21 Thiamine HCl (Vitamin B-1) Confirm Administered Dose 200 mg .ROUTE .STK-MED ONE Stop: 08/02/18 02:46 Last Admin: 08/02/18 15:04 Dose: Not Given - Exam General: Reports: Alert, Oriented, Cooperative, No Acute Distress Lungs: Reports: Clear to Auscultation, Normal Respiratory Effort Cardiovascular: Reports: Regular Rate, Regular Rhythm, No Murmurs GI/Abdominal Exam: Soft, Non-Tender, No Organomegaly, No Distention Extremities: Non-Tender, No Pedal Edema *Q Meaningful Use (DIS) - VTE *Q VTE Pharmacological Contraindications *Q: Active Hemorrhage
== END 2018-08-09 14:45 | disposition home or self-care (01) | DRG 282 ==
LOC: JP.ED 08-02 00:44 → JP.MS 08-02 02:13 → JP.ICU 08-02 11:00 → JP.MS 08-06 08:52 → JP.ICU 08-06 09:00
PROVIDERS: ADMIT Internal Medicine; ATTEND Hospitalist
PROC: 0DJ08ZZ Inspection of Upper Intestinal Tract, Via Natural or Artificial Opening Endoscopic (ICD-10-PCS; principal; 2018-08-03)
DX: K85.20 Alcohol induced acute pancreatitis without necrosis or infection (principal); K86.0 Alcohol-induced chronic pancreatitis; F10.231 Alcohol dependence with withdrawal delirium; Y90.8 Blood alcohol level of 240 mg/100 ml or more; K92.0 Hematemesis; K75.89 Other specified inflammatory liver diseases; K70.10 Alcoholic hepatitis without ascites; J15.9 Unspecified bacterial pneumonia; N40.1 Benign prostatic hyperplasia with lower urinary tract symptoms; R33.8 Other retention of urine; K29.70 Gastritis, unspecified, without bleeding; Z90.49 Acquired absence of other specified parts of digestive tract; G62.9 Polyneuropathy, unspecified; F17.220 Nicotine dependence, chewing tobacco, uncomplicated; L98.499 Non-pressure chronic ulcer of skin of other sites with unspecified severity
CPT/HCPCS: 36415; 36600; 51702; 51798; 70470; 71045; 80048; 80053; 81001; 82150; 82803; 83690; 83735; 85018; 85025; 85027; 85610; 87040; A9270-GY; C9113; G0480; J1170; J1630; J1956; J2060; J2250; J2405; J2543; J2704; J2920; J2930; J3010; J3411; J3475; J3490; J7030; J7050; Q9967

== ENCOUNTER 2018-08-10 23:12 | Emergency (ER) | payer MEDICAID ==
[2018-08-11] MEDS ORDERED: Alum Hydrox/Mag Hydrox/Simeth 15 ML, Lidocaine 2% 15 ML PO ONE ×2 (00:14)
--- NOTE | 2018-08-11 00:22 | EDM.PDOC ---
ED HPI GENERAL MEDICAL PROBLEM - General Chief Complaint: Abdominal Pain Stated Complaint: ABDOMINAL PAIN Time Seen by Provider: 08/10/18 23:30 Source of Information: Reports: Patient, EMS History Limitations: Reports: Intoxication - History of Present Illness INITIAL COMMENTS - FREE TEXT/NARRATIVE: 53-year-old male arrives with abdominal pain and hematemesis after drinking alcohol. He was discharged from the hospital yesterday with pancreatitis from chronic alcohol abuse, went through fairly severe DTs. When he got home he started drinking again and now has abdominal pain, also said he "vomited blood" . He claimed he threw up coffee-ground emesis before his previous hospitalization but his EGD was normal making it unlikely. No one has actually seen any hematemesis. His pain is diffuse in the abdomen. He is again intoxicated. Onset: Unknown/Unsure Associated Symptoms: Reports: Nausea/Vomiting, Other (Main complaint is abdominal pain). Denies: Shortness of Breath Abdominal Pain Score (Numeric/FACES): 9 - Related Data Allergies Allergy/AdvReac Type Severity Reaction Status Date / Time No Known Allergies Allergy Verified 08/10/18 23:14 Home Meds: Home Meds Gabapentin [Neurontin] 900 mg PO TID 02/22/18 [History] Pantoprazole [ProTONIX] 40 mg PO ACBREAKFAST #30 tab.cr 08/09/18 [Rx] Tamsulosin [Flomax] 0.4 mg PO DAILY #30 cap.er 08/09/18 [Rx] Past Medical History HEENT History: Reports: Impaired Vision Gastrointestinal History: Reports: Pancreatitis Other Gastrointestinal History: pancreatitis Musculoskeletal History: Reports: Fracture Neurological History: Reports: Neuropathy, Peripheral Psychiatric History: Reports: Addiction - Infectious Disease History Infectious Disease History: Reports: Chicken Pox - Past Surgical History Musculoskeletal Surgical History: Reports: Arthroscopic Knee Social & Family History - Family History Family Medical History: Noncontributory - Tobacco Use Smoking Status *Q: Current Every Day Smoker Years of Tobacco use: 50 Packs/Tins Daily: 1 - Caffeine Use Caffeine Use: Reports: None - Alcohol Use Days Per Week of Alcohol Use: 7 Number of Drinks Per Day: 1 Total Drinks Per Week: 7 - Recreational Drug Use Recreational Drug Use: No ED ROS GENERAL - Review of Systems Review Of Systems: See Below Constitutional: Denies: Fever, Chills HEENT: Reports: No Symptoms Respiratory: Denies: Shortness of Breath Cardiovascular: Denies: Chest Pain GI/Abdominal: Reports: Abdominal Pain, Hematemesis, Nausea, Vomiting : Reports: No Symptoms Skin: Reports: No Symptoms Psychiatric: Reports: Other (Intoxication) ED EXAM, GI/ABD - Physical Exam Exam: See Below Exam Limited By: No Limitations General Appearance: Alert, Moderate Distress (Patient behaves as he is in significant discomfort) Eyes: Bilateral: Normal Appearance Respiratory/Chest: No Respiratory Distress, Lungs Clear Cardiovascular: Regular Rate, Rhythm, Tachycardia GI/Abdominal Exam: Tender (Difficult to examine, even mild or light palpation over the entire abdomen causes him to wince with pain.) Neurological: Alert, Oriented, Other (Intoxicated) Psychiatric: Anxious Skin Exam: Warm, Dry Course - Vital Signs Last Recorded V/S: Last Vital Signs Temp 97.3 F 08/10/18 23:15 Pulse 121 H 08/10/18 23:15 Resp 14 08/10/18 23:15 BP 115/76 08/10/18 23:15 Pulse Ox 93 L 08/10/18 23:15 - Orders/Labs/Meds Labs: Laboratory Tests 08/10/18 08/10/18 08/10/18 Range/Units 23:46 23:46 23:46 WBC 6.3 (4.5-11.0) K/uL RBC 3.76 L (4.30-5.90) M/uL Hgb 12.2 (12.0-15.0) g/dL Hct 36.4 L (40.0-54.0) % MCV 97 (80-98) fL MCH 32 H (27-31) pg MCHC 34 (32-36) % Plt Count 302 (150-400) K/uL Add Manual Diff Yes Neutrophils % (Manual) 42 (36-66) % Band Neutrophils % 1 L (5-11) % Lymphocytes % (Manual) 35 (24-44) % Monocytes % (Manual) 19 H (2-6) % Eosinophils % (Manual) 3 (2-4) % Sodium 146 (140-148) mmol/L Potassium 4.0 (3.6-5.2) mmol/L Chloride 110 H (100-108) mmol/L Carbon Dioxide 23 (21-32) mmol/L Anion Gap 17.0 H (5.0-14.0) mmol/L BUN 14 D (7-18) mg/dL Creatinine 0.8 (0.8-1.3) mg/dL Est Cr Clr Drug Dosing 110.45 mL/min Estimated GFR (MDRD) > 60 (>60) Glucose 75 (74-106) mg/dL Calcium 9.1 (8.5-10.1) mg/dL Amylase 116 H D (25-115) U/L Lipase 575 H (73-393) U/L Ethyl Alcohol 183 mg/dL Meds: Medications Discontinued Medications Generic Name Dose Route Start Last Admin Trade Name Davian PRN Reason Stop Dose Admin Al Hydroxide/Mg Hydroxide 15 0 ml 08/11/18 00:14 08/11/18 00:19 ml/ Lidocaine HCl 15 ml PO 08/11/18 00:15 30 ml ONETIME ONE Administration - Re-Assessments/Exams Free Text/Narrative Re-Assessment/Exam: 08/11/18 00:20 Patient was asking for pain medication as soon as he arrived. I informed him that I would have to see some labs first, if found again a significantly elevated lipase he will be treated for pancreatitis. His history of hematemesis is unlikely, his EGD from 2 days ago was entirely normal. 08/11/18 00:29 Patient was given a GI cocktail which provided very good relief. EtOH was 0.183 , lipase was just over 500 which was where he was yesterday at discharge. Hemoglobin is stable. He was encouraged to continue his Protonix, use liquid antacid as needed and stay away from alcohol. Departure - Departure Time of Disposition: 00:41 Disposition: Home, Self-Care 01 Condition: Fair Clinical Impression: Gastritis Qualifiers: Gastritis type: alcoholic Chronicity: acute Gastritis bleeding: without bleeding Qualified Code(s): K29.20 - Alcoholic gastritis without bleeding - Discharge Information Instructions: Gastritis, Adult, [id number] Referrals: PCP,None [Primary Care Provider] - Forms: ED Department Discharge Care Plan Goals: Continue Protonix, use liquid antacid such as Maalox for additional stomach pain , and avoid alcohol in the future.
== END 2018-08-11 00:44 | disposition home or self-care (01) ==
LOC: JP.ED 23:12
DX: K29.20 Alcoholic gastritis without bleeding (principal); F10.229 Alcohol dependence with intoxication, unspecified; F17.210 Nicotine dependence, cigarettes, uncomplicated; Y90.6 Blood alcohol level of 120-199 mg/100 ml
CPT/HCPCS: 36415; 80048; 82150; 83690; 85025; 99284; A9270; G0480

== ENCOUNTER 2018-09-02 14:53 | Inpatient (IN) | payer MEDICAID ==
[2018-09-02] MEDS ORDERED: Gabapentin 400 MG Cap PO STA (15:51)
[2018-09-02] MEDS ORDERED: Ondansetron 4 MG/2 ML SDV IVPUSH ONE (15:51)
[2018-09-02] MEDS ORDERED: fentaNYL 100 MCG/2 ML SDV IVPUSH ONE ×2 (15:51→17:26)
--- NOTE | 2018-09-02 15:54 | EDM.PDOC ---
ED HPI GENERAL MEDICAL PROBLEM - General Chief Complaint: Abdominal Pain Stated Complaint: [facility] Time Seen by Provider: 09/02/18 15:48 Source of Information: Reports: Patient, Old Records, RN Notes Reviewed History Limitations: Reports: No Limitations - History of Present Illness INITIAL COMMENTS - FREE TEXT/NARRATIVE: 53-year-old gentleman presents via EMS services to the emergency department complaint of abdominal pain, he is a known history of alcohol abuse and dependence as well as recurrent alcoholic pancreatitis he recently spent about a week and half in the hospital for alcoholic pancreatitis with withdrawal. He states he has been consuming alcohol last drank this morning abdominal pain has been getting worse alcohol did seem to provide some relief for the pain but today was unbearable called EMS services for transport did receive 1 mg Dilaudid in route Upper Abdomen Pain Score (Numeric/FACES): 10 low abd Pain Score (Numeric/FACES): 7 - Related Data Allergies Allergy/AdvReac Type Severity Reaction Status Date / Time No Known Allergies Allergy Verified 09/06/18 21:47 Home Meds: Home Meds Cyclobenzaprine HCl 1 tab PO TID PRN 09/06/18 [History] Fluticasone Propionate [Flonase] 1 spray ABHINAV BID 09/06/18 [History] Folic Acid 1 mg PO DAILY 09/06/18 [History] Gabapentin [Neurontin] 400 mg PO TID 09/06/18 [History] Thiamine HCl [Vitamin B-1] 100 mg PO DAILY 09/06/18 [History] Past Medical History HEENT History: Reports: Impaired Vision Gastrointestinal History: Reports: Pancreatitis Other Gastrointestinal History: pancreatitis Musculoskeletal History: Reports: Fracture Neurological History: Reports: Neuropathy, Peripheral Psychiatric History: Reports: Addiction - Infectious Disease History Infectious Disease History: Reports: Chicken Pox - Past Surgical History GI Surgical History: Reports: EGD Musculoskeletal Surgical History: Reports: Arthroscopic Knee Social & Family History - Family History Family Medical History: Noncontributory - Tobacco Use Smoking Status *Q: Never Smoker - Caffeine Use Caffeine Use: Reports: None - Alcohol Use Days Per Week of Alcohol Use: 7 Number of Drinks Per Day: 16 Total Drinks Per Week: 112 Date of Last Drink: 09/02/18 - Recreational Drug Use Recreational Drug Use: No ED ROS GENERAL - Review of Systems Review Of Systems: See Below Constitutional: Denies: Fever, Chills HEENT: Reports: No Symptoms Respiratory: Reports: No Symptoms Cardiovascular: Reports: No Symptoms GI/Abdominal: Reports: Abdominal Pain. Denies: Nausea, Vomiting : Reports: No Symptoms Musculoskeletal: Reports: No Symptoms Skin: Reports: No Symptoms Neurological: Reports: Tremors ED EXAM, GI/ABD - Physical Exam Exam: See Below Exam Limited By: No Limitations General Appearance: Alert, Mild Distress Respiratory/Chest: No Respiratory Distress, Lungs Clear, Normal Breath Sounds, No Accessory Muscle Use, Chest Non-Tender Cardiovascular: Regular Rate, Rhythm, No Murmur GI/Abdominal Exam: Soft, Tender Course - Vital Signs Last Recorded V/S: Last Vital Signs Temp 97.0 F 09/05/18 08:00 Pulse 68 09/05/18 08:00 Resp 15 09/05/18 08:00 BP 115/77 09/05/18 08:00 Pulse Ox 96 09/05/18 08:00 - Orders/Labs/Meds Labs: Laboratory Tests 09/02/18 09/02/18 09/02/18 Range/Units 15:50 15:50 15:50 WBC 4.6 (4.5-11.0) K/uL RBC 3.89 L (4.30-5.90) M/uL Hgb 13.0 (12.0-15.0) g/dL Hct 38.5 L (40.0-54.0) % MCV 99 H (80-98) fL MCH 33 H (27-31) pg MCHC 34 (32-36) % Plt Count 205 (150-400) K/uL Neut % (Auto) 53 (36-66) % Lymph % (Auto) 35 (24-44) % [place] % (Auto) 9 H (2-6) % Eos % (Auto) 2 (2-4) % Baso % (Auto) 1 (0-1) % Sodium 142 (140-148) mmol/L Potassium 3.9 (3.6-5.2) mmol/L Chloride 102 (100-108) mmol/L Carbon Dioxide 25 (21-32) mmol/L Anion Gap 15.0 H (5.0-14.0) mmol/L BUN 12 (7-18) mg/dL Creatinine 0.7 L (0.8-1.3) mg/dL Est Cr Clr Drug Dosing 126.22 mL/min Estimated GFR (MDRD) > 60 (>60) Glucose 72 L (74-106) mg/dL Lactic Acid 3.7 H (0.4-2.0) mmol/L Calcium 8.5 (8.5-10.1) mg/dL Total Bilirubin 0.7 (0.2-1.0) mg/dL AST 258 H D (15-37) U/L ALT 48 (12-78) U/L Alkaline Phosphatase 90 (46-116) U/L Troponin I < 0.017 (0.000-0.056) ng/mL Total Protein 7.7 (6.4-8.2) g/dL Albumin 3.9 (3.4-5.0) g/dL Globulin 3.8 H (2.3-3.5) g/dL Albumin/Globulin Ratio 1.0 L (1.2-2.2) Lipase 1642 H (73-393) U/L Urine Color Urine Appearance Urine pH (4.5-8.0) Ur Specific [place] (1.008-1.030) Urine Protein (NEGATIVE) mg/dL Urine Glucose (UA) (NEGATIVE) mg/dL Urine Ketones (NEGATIVE) mg/dL Urine Occult Blood (NEGATIVE) Urine Nitrite (NEGAITVE) Urine Bilirubin (NEGATIVE) Urine Urobilinogen (NORMAL) mg/dL Ur Leukocyte Esterase (NEGATIVE) Urine RBC (0-5) Urine WBC (0-5) Ur Epithelial Cells Amorphous Sediment Urine Bacteria Urine Mucus Urine Opiates Screen (NEGATIVE) Ur Oxycodone Screen (NEGATIVE) Urine Methadone Screen (NEGATIVE) Ur Propoxyphene Screen (NEGATIVE) Ur Barbiturates Screen (NEGATIVE) Ur Tricyclics Screen (NEGATIVE) Ur Phencyclidine Scrn (NEGATIVE) Ur Amphetamine Screen (NEGATIVE) U Methamphetamines Scrn (NEGATIVE) Urine MDMA Screen (NEGATIVE) U Benzodiazepines Scrn (NEGATIVE) U Cocaine Metab Screen (NEGATIVE) U Marijuana (THC) Screen (NEGATIVE) Ethyl Alcohol mg/dL 09/02/18 09/02/18 09/02/18 Range/Units 15:51 16:56 16:56 WBC (4.5-11.0) K/uL RBC (4.30-5.90) M/uL Hgb (12.0-15.0) g/dL Hct (40.0-54.0) % MCV (80-98) fL MCH (27-31) pg MCHC (32-36) % Plt Count (150-400) K/uL Neut % (Auto) (36-66) % Lymph % (Auto) (24-44) % [place] % (Auto) (2-6) % Eos % (Auto) (2-4) % Baso % (Auto) (0-1) % Sodium (140-148) mmol/L Potassium (3.6-5.2) mmol/L Chloride (100-108) mmol/L Carbon Dioxide (21-32) mmol/L Anion Gap (5.0-14.0) mmol/L BUN (7-18) mg/dL Creatinine (0.8-1.3) mg/dL Est Cr Clr Drug Dosing mL/min Estimated GFR (MDRD) (>60) Glucose (74-106) mg/dL Lactic Acid (0.4-2.0) mmol/L Calcium (8.5-10.1) mg/dL Total Bilirubin (0.2-1.0) mg/dL AST (15-37) U/L ALT (12-78) U/L Alkaline Phosphatase (46-116) U/L Troponin I (0.000-0.056) ng/mL Total Protein (6.4-8.2) g/dL Albumin (3.4-5.0) g/dL Globulin (2.3-3.5) g/dL Albumin/Globulin Ratio (1.2-2.2) Lipase (73-393) U/L Urine Color Yellow Urine Appearance Clear Urine pH 5.0 (4.5-8.0) Ur Specific [place] 1.010 (1.008-1.030) Urine Protein Trace (NEGATIVE) mg/dL Urine Glucose (UA) Normal (NEGATIVE) mg/dL Urine Ketones 50 H (NEGATIVE) mg/dL Urine Occult Blood Small (NEGATIVE) Urine Nitrite Negative (NEGAITVE) Urine Bilirubin Negative (NEGATIVE) Urine Urobilinogen Normal (NORMAL) mg/dL Ur Leukocyte Esterase Negative (NEGATIVE) Urine RBC 0-5 (0-5) Urine WBC 0-5 (0-5) Ur Epithelial Cells Rare Amorphous Sediment Rare Urine Bacteria Rare Urine Mucus Few Urine Opiates Screen Presumptive positive H (NEGATIVE) Ur Oxycodone Screen Negative (NEGATIVE) Urine Methadone Screen Negative (NEGATIVE) Ur Propoxyphene Screen Negative (NEGATIVE) Ur Barbiturates Screen Negative (NEGATIVE) Ur Tricyclics Screen Negative (NEGATIVE) Ur Phencyclidine Scrn Negative (NEGATIVE) Ur Amphetamine Screen Negative (NEGATIVE) U Methamphetamines Scrn Negative (NEGATIVE) Urine MDMA Screen Negative (NEGATIVE) U Benzodiazepines Scrn Negative (NEGATIVE) U Cocaine Metab Screen Negative (NEGATIVE) U Marijuana (THC) Screen Negative (NEGATIVE) Ethyl Alcohol 368 mg/dL Meds: Medications Discontinued Medications Generic Name Dose Route Start Last Admin Trade Name Freq PRN Reason Stop Dose Admin Acetaminophen 650 mg 09/02/18 19:17 09/04/18 22:08 Tylenol PO 650 mg Q4H PRN Administration Pain (Mild 1-3)/fever Albuterol 2.5 mg 09/02/18 19:17 Proventil Neb Soln NEB Q4H PRN Shortness Of Breath/wheezing Fentanyl 50 mcg 09/02/18 15:51 09/02/18 16:15 Sublimaze IVPUSH 09/02/18 15:52 50 mcg ONETIME ONE Administration Fentanyl 100 mcg 09/02/18 17:26 09/02/18 17:30 Sublimaze IVPUSH 09/02/18 17:27 100 mcg ONETIME ONE Administration Folic Acid 1 mg 09/02/18 19:17 09/05/18 08:51 Folic Acid PO 1 mg DAILY RAFAT Administration Gabapentin 400 mg 09/02/18 15:51 09/02/18 16:39 Neurontin PO 09/02/18 15:52 400 mg NOW STA Administration Gabapentin 400 mg 09/02/18 21:00 09/05/18 05:26 Neurontin PO 400 mg Q8H RAFAT Administration Hydromorphone HCl 1 mg 09/02/18 18:12 09/02/18 18:17 Dilaudid IVPUSH 09/02/18 18:13 1 mg ONETIME ONE Administration Hydromorphone HCl 2 mg 09/02/18 19:17 09/03/18 07:26 Dilaudid IVPUSH 2 mg Q1H PRN Administration Pain Hydromorphone HCl 1 mg 09/03/18 09:30 09/04/18 09:01 Dilaudid IVPUSH 1 mg Q2H PRN Administration Pain Lactated Ringer's 1,000 mls @ 999 mls/hr 09/02/18 16:00 09/02/18 16:11 Ringers, Lactated IV 999 mls/hr ASDIRECTED RAFAT Administration Sodium Chloride 80 mls @ 3 mls/sec 09/02/18 17:45 09/02/18 17:49 Normal Saline IV 3 mls/sec ASDIRECTED RAFAT Administration Multivitamins/Minerals 10 ml/ 1,015.2 mls @ 100 mls/hr 09/02/18 19:17 20:38 Thiamine HCl 100 mg/ Folic IV 09/03/18 05:26 100 mls/hr Acid 1 mg/ Magnesium Sulfate 2 ONETIME ONE Administration gm/ Sodium Chloride Lactated Ringer's 1,000 mls @ 125 mls/hr 09/02/18 19:17 09/03/18 03:20 Ringers, Lactated IV 125 mls/hr ASDIRECTED RFAAT Administration Magnesium Sulfate 2 gm/ Premix 50 mls @ 25 mls/hr 09/03/18 10:00 09/03/18 16: 38 IV 09/03/18 17:59 25 mls/hr Q6H RAFAT Administration Ibuprofen 600 mg 09/04/18 17:47 09/05/18 05:29 Motrin PO 600 mg Q6H PRN Administration Pain Iopamidol 100 ml 09/02/18 17:45 09/02/18 17:49 Isovue-300 (61%) IV 100 ml . DIRECTED RAFAT Administration Lorazepam 0 mg 09/02/18 19:17 09/04/18 02:38 Ativan IV 2 mg ASDIRECTED RAFAT Administration Protocol Lorazepam 0.5 mg 09/04/18 17:50 09/04/18 22:07 Ativan PO 0.5 mg Q4H PRN Administration Agitation Magnesium Oxide 400 mg 09/03/18 21:00 09/05/18 08:49 Magnesium Oxide PO 400 mg BID RAFAT Administration Nicotine 21 mg 09/02/18 19:17 09/02/18 20:08 Habitrol TRDERM 21 mg DAILY RAFAT Administration Nicotine 21 mg 09/03/18 21:00 09/04/18 22:03 Habitrol TRDERM 21 mg BEDTIME RAFAT Administration Ondansetron HCl 4 mg 09/02/18 15:51 09/02/18 16:13 Zofran IVPUSH 09/02/18 15:52 4 mg ONETIME ONE Administration Ondansetron HCl 4 mg 09/02/18 19:17 09/03/18 20:59 Zofran IV 4 mg Q4H PRN Administration Nausea/Vomiting Pantoprazole Sodium 40 mg 09/02/18 20:00 09/03/18 08:35 Protonix Iv IV 40 mg Q12H RAFAT Administration Pantoprazole Sodium 40 mg 09/03/18 16:30 09/05/18 08:15 Protonix PO 40 mg BIDAC RAFAT Administration Sodium Chloride 10 ml 09/02/18 17:32 09/02/18 17:49 Saline Flush FLUSH 10 ml ASDIRECTED PRN Administration Keep Vein Open Sodium Chloride 10 ml 09/02/18 19:17 09/04/18 06:40 Saline Flush FLUSH 10 ml ASDIRECTED PRN Administration Keep Vein Open Tamsulosin HCl 0.4 mg 09/03/18 09:00 09/05/18 08:50 Flomax PO 0.4 mg DAILY RAFAT Administration Thiamine HCl 100 mg 09/02/18 19:17 09/05/18 08:51 Vitamin B-1 PO 100 mg DAILY RAFAT Administration Departure - Departure Time of Disposition: 07:07 Disposition: Admitted As Inpatient 64 Condition: Poor Clinical Impression: ETOH abuse Acute alcoholic pancreatitis Qualifiers: Acute pancreatitis complication: unspecified Qualified Code(s): K85.20 - Alcohol induced acute pancreatitis without necrosis or infection - Discharge Information - Assessment/Plan Plan: Assessment Pancreatitis secondary to alcohol Plan Admit to hospitalist service
[2018-09-02] MEDS ORDERED: Lactated Ringers 1,000 ML IV SCH (16:00)
[2018-09-02] MEDS ORDERED: Sodium Chloride 0.9% 10 ML Syringe FLUSH PRN (17:32)
[2018-09-02] MEDS ORDERED: Sodium Chloride 0.9% 80 ML IV SCH (17:45)
[2018-09-02] MEDS ORDERED: Iopamidol 612 MG/ML 100 ML Bottle IV SCH (17:45)
[2018-09-02] MEDS ORDERED: HYDROmorphone 1 MG/ML Syringe IVPUSH ONE (18:12)
--- NOTE | 2018-09-02 18:36 | CRLCT ---
INDICATION: Recurrent pancreatitis. TECHNIQUE: CT abdomen and pelvis acquired with 100 cc Isovue-300 intravenous contrast. COMPARISON: Abdomen and pelvis CT 07/16/2018 FINDINGS: Lower chest: Unremarkable. Liver: Mildly decreased density of the liver diffusely without focal lesion. Focal fat adjacent to the falciform ligament. Gallbladder and bile ducts: Status post cholecystectomy. Common duct is upper normal for post cholecystectomy patient. Pancreas: No focal pancreatic lesions. Pancreas divisum noted (2, 55). No peripancreatic inflammation seen. Spleen: Unremarkable. Normal in size. No masses. Adrenal glands: Unremarkable. No nodules. Kidneys: Symmetric enhancement with 2 left renal hypodensities redemonstrated which are too small for characterization although probably represent renal cysts. GI tract: Stomach is unremarkable. There are no dilated loops of large or small intestine with a suture line noted in the right lower quadrant. Colonic diverticulosis without focal inflammation. Vasculature: Unremarkable. Pelvis: Bladder unremarkable. Mild prostatic enlargement. Bones: Degenerative disc disease lumbar spine. IMPRESSION: 1. No peripancreatic inflammation or fluid collection seen. However, note that with a history of recurrent pancreatitis that cases of mild pancreatitis can be normal on CT. 2. Pancreas divisum. 3. Status post cholecystectomy. 4. Fatty infiltration of the liver. Please note that all CT scans at this facility use dose modulation, iterative reconstruction, and/or weight-based dosing when appropriate to reduce radiation dose to as low as reasonably achievable. Dictated by Amado Ferrer MD @ Sep 02 2018 6:26PM Signed by Dr. Amado Ferrer @ Sep 02 2018 6:34PM
--- NOTE | 2018-09-02 18:58 | PCM.HP ---
H&P History of Present Illness - General Date of Service: 09/02/18 Admit Problem/Dx: Admission Diagnosis/Problem Admission Diagnosis/Problem Pancreatitis Source of Information: Patient, Old Records, Provider, RN Notes Reviewed History Limitations: Reports: No Limitations - History of Present Illness Initial Comments - Free Text/Narative: History status a 53-year-old gentleman who is admitted through the emergency department for further evaluation and management of abdominal pain secondary to alcohol-induced pancreatitis. This will be his fourth admission in the past few months for alcohol related pancreatitis. 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 He started drinking immediately after discharge and has continued drinking over the past 3 weeks. 2 days ago began to develop recurrent supraumbilical epigastric abdominal pain associated with nausea and vomiting. He presented to the emergency department today via EMS. Lipase level is elevated at 1600 and he has elevation in lactic acid likely secondary to dehydration. Alcohol level in the emergency department elevated at 368. CT scan of the abdomen and pelvis shows no obvious pancreatic inflammation at the present time. Upper Abdomen Pain Score (Numeric/FACES): 10 - Related Data Allergies/Adverse Reactions: Allergies Allergy/AdvReac Type Severity Reaction Status Date / Time No Known Allergies Allergy Verified 08/10/18 23:14 Home Medications: Home Meds Gabapentin [Neurontin] 900 mg PO TID 02/22/18 [History] Tamsulosin [Flomax] 0.4 mg PO DAILY #30 cap.er 08/09/18 [Rx] Famotidine 20 mg PO DAILY 09/02/18 [History] Past Medical History HEENT History: Reports: Impaired Vision Gastrointestinal History: Reports: Pancreatitis Other Gastrointestinal History: pancreatitis Musculoskeletal History: Reports: Fracture Neurological History: Reports: Neuropathy, Peripheral Psychiatric History: Reports: Addiction - Infectious Disease History Infectious Disease History: Reports: Chicken Pox - Past Surgical History GI Surgical History: Reports: EGD Musculoskeletal Surgical History: Reports: Arthroscopic Knee Social & Family History - Family History Family Medical History: Noncontributory - Tobacco Use Smoking Status *Q: Never Smoker - Caffeine Use Caffeine Use: Reports: None - Alcohol Use Days Per Week of Alcohol Use: 7 Number of Drinks Per Day: 16 Total Drinks Per Week: 112 Date of Last Drink: 09/02/18 - Recreational Drug Use Recreational Drug Use: No H&P Review of Systems - Review of Systems: Review Of Systems: See Below General: Reports: Weakness, Diaphoresis. Denies: Fever, Chills HEENT: Reports: No Symptoms Pulmonary: Reports: No Symptoms Cardiovascular: Reports: No Symptoms Gastrointestinal: Reports: Abdominal Pain, Distension, Nausea, Vomiting. Denies : Constipation, Diarrhea, Difficulty Swallowing, Hematemesis, Hematochezia, Melena Genitourinary: Reports: No Symptoms Musculoskeletal: Reports: No Symptoms Skin: Reports: No Symptoms Psychiatric: Reports: No Symptoms Neurological: Reports: No Symptoms Hematologic/Lymphatic: Reports: No Symptoms Immunologic: Reports: No Symptoms Exam - Exam Exam: See Below - Vital Signs Vital Signs: Last Vital Signs Temp 97.1 F 09/02/18 17:37 Pulse 92 09/02/18 17:37 Resp 16 09/02/18 17:37 BP 140/93 H 09/02/18 17:37 Pulse Ox 93 L 09/02/18 17:37 Weight: 165 lb - Exam Quality Assessment: DVT Prophylaxis General: Alert, Oriented, Cooperative, Moderate Distress HEENT: Conjunctiva Clear, Hearing Intact, Mucosa Moist & [place], Normal Nasal Septum, Posterior Pharynx Clear, Pupils Equal Neck: Supple, Trachea Midline, +2 Carotid Pulse wo Bruit Lungs: Clear to Auscultation, Normal Respiratory Effort Cardiovascular: Regular Rate, Regular Rhythm, Normal S1, Normal S2. No: Systolic Murmur, Diastolic Murmur GI/Abdominal Exam: No Organomegaly, Distended, Tender. No: Guarding, Rigid, Rebound Back Exam: Normal Inspection, Full Range of Motion Extremities: Non-Tender, No Pedal Edema Skin: Warm, Dry, Intact Neurological: Cranial Nerves Intact, Strength Equal Bilateral, Normal Speech, Normal Tone, Sensation Intact. No: Focal Deficit Neuro Extensive - Mental Status: Alert, Oriented x3, Normal Mood/Affect, Normal Cognition, Memory Intact - Patient Data Lab Results Last 24 hrs: Laboratory Results - last 24 hr 09/02/18 09/02/18 09/02/18 Range/Units 15:50 15:50 15:50 WBC 4.6 (4.5-11.0) K/uL RBC 3.89 L (4.30-5.90) M/uL Hgb 13.0 (12.0-15.0) g/dL Hct 38.5 L (40.0-54.0) % MCV 99 H (80-98) fL MCH 33 H (27-31) pg MCHC 34 (32-36) % Plt Count 205 (150-400) K/uL Neut % (Auto) 53 (36-66) % Lymph % (Auto) 35 (24-44) % [place] % (Auto) 9 H (2-6) % Eos % (Auto) 2 (2-4) % Baso % (Auto) 1 (0-1) % Sodium 142 (140-148) mmol/L Potassium 3.9 (3.6-5.2) mmol/L Chloride 102 (100-108) mmol/L Carbon Dioxide 25 (21-32) mmol/L Anion Gap 15.0 H (5.0-14.0) mmol/L BUN 12 (7-18) mg/dL Creatinine 0.7 L (0.8-1.3) mg/dL Est Cr Clr Drug Dosing 126.22 mL/min Estimated GFR (MDRD) > 60 (>60) Glucose 72 L (74-106) mg/dL Lactic Acid 3.7 H (0.4-2.0) mmol/L Calcium 8.5 (8.5-10.1) mg/dL Total Bilirubin 0.7 (0.2-1.0) mg/dL AST 258 H D (15-37) U/L ALT 48 (12-78) U/L Alkaline Phosphatase 90 (46-116) U/L Troponin I < 0.017 (0.000-0.056) ng/mL Total Protein 7.7 (6.4-8.2) g/dL Albumin 3.9 (3.4-5.0) g/dL Globulin 3.8 H (2.3-3.5) g/dL Albumin/Globulin Ratio 1.0 L (1.2-2.2) Lipase 1642 H (73-393) U/L Urine Color Urine Appearance Urine pH (4.5-8.0) Ur Specific [place] (1.008-1.030) Urine Protein (NEGATIVE) mg/dL Urine Glucose (UA) (NEGATIVE) mg/dL Urine Ketones (NEGATIVE) mg/dL Urine Occult Blood (NEGATIVE) Urine Nitrite (NEGAITVE) Urine Bilirubin (NEGATIVE) Urine Urobilinogen (NORMAL) mg/dL Ur Leukocyte Esterase (NEGATIVE) Urine RBC (0-5) Urine WBC (0-5) Ur Epithelial Cells Amorphous Sediment Urine Bacteria Urine Mucus Urine Opiates Screen (NEGATIVE) Ur Oxycodone Screen (NEGATIVE) Urine Methadone Screen (NEGATIVE) Ur Propoxyphene Screen (NEGATIVE) Ur Barbiturates Screen (NEGATIVE) Ur Tricyclics Screen (NEGATIVE) Ur Phencyclidine Scrn (NEGATIVE) Ur Amphetamine Screen (NEGATIVE) U Methamphetamines Scrn (NEGATIVE) Urine MDMA Screen (NEGATIVE) U Benzodiazepines Scrn (NEGATIVE) U Cocaine Metab Screen (NEGATIVE) U Marijuana (THC) Screen (NEGATIVE) Ethyl Alcohol mg/dL 09/02/18 09/02/18 09/02/18 Range/Units 15:51 16:56 16:56 WBC (4.5-11.0) K/uL RBC (4.30-5.90) M/uL Hgb (12.0-15.0) g/dL Hct (40.0-54.0) % MCV (80-98) fL MCH (27-31) pg MCHC (32-36) % Plt Count (150-400) K/uL Neut % (Auto) (36-66) % Lymph % (Auto) (24-44) % [place] % (Auto) (2-6) % Eos % (Auto) (2-4) % Baso % (Auto) (0-1) % Sodium (140-148) mmol/L Potassium (3.6-5.2) mmol/L Chloride (100-108) mmol/L Carbon Dioxide (21-32) mmol/L Anion Gap (5.0-14.0) mmol/L BUN (7-18) mg/dL Creatinine (0.8-1.3) mg/dL Est Cr Clr Drug Dosing mL/min Estimated GFR (MDRD) (>60) Glucose (74-106) mg/dL Lactic Acid (0.4-2.0) mmol/L Calcium (8.5-10.1) mg/dL Total Bilirubin (0.2-1.0) mg/dL AST (15-37) U/L ALT (12-78) U/L Alkaline Phosphatase (46-116) U/L Troponin I (0.000-0.056) ng/mL Total Protein (6.4-8.2) g/dL Albumin (3.4-5.0) g/dL Globulin (2.3-3.5) g/dL Albumin/Globulin Ratio (1.2-2.2) Lipase (73-393) U/L Urine Color Yellow Urine Appearance Clear Urine pH 5.0 (4.5-8.0) Ur Specific [place] 1.010 (1.008-1.030) Urine Protein Trace (NEGATIVE) mg/dL Urine Glucose (UA) Normal (NEGATIVE) mg/dL Urine Ketones 50 H (NEGATIVE) mg/dL Urine Occult Blood Small (NEGATIVE) Urine Nitrite Negative (NEGAITVE) Urine Bilirubin Negative (NEGATIVE) Urine Urobilinogen Normal (NORMAL) mg/dL Ur Leukocyte Esterase Negative (NEGATIVE) Urine RBC 0-5 (0-5) Urine WBC 0-5 (0-5) Ur Epithelial Cells Rare Amorphous Sediment Rare Urine Bacteria Rare Urine Mucus Few Urine Opiates Screen Presumptive positive H (NEGATIVE) Ur Oxycodone Screen Negative (NEGATIVE) Urine Methadone Screen Negative (NEGATIVE) Ur Propoxyphene Screen Negative (NEGATIVE) Ur Barbiturates Screen Negative (NEGATIVE) Ur Tricyclics Screen Negative (NEGATIVE) Ur Phencyclidine Scrn Negative (NEGATIVE) Ur Amphetamine Screen Negative (NEGATIVE) U Methamphetamines Scrn Negative (NEGATIVE) Urine MDMA Screen Negative (NEGATIVE) U Benzodiazepines Scrn Negative (NEGATIVE) U Cocaine Metab Screen Negative (NEGATIVE) U Marijuana (THC) Screen Negative (NEGATIVE) Ethyl Alcohol 368 mg/dL Result Diagrams: 09/02/18 15:50 09/02/18 15:50 *Q Meaningful Use (ADM) - VTE Risk Assess *Q Each Risk Factor Represents 1 Point: Age 41 - 59 years Total Score 1 Point Risk Factors: 1 Each Risk Factor Represents 2 Points: None Total Score 2 Point Risk Factors: 0 Each Risk Factor Represents 3 Points: None Total Score 3 Point Risk Factors: 0 Each Risk Factor Represents 5 Points: None Total Score 5 Point Risk Factors: 0 Venous Thromboembolism Risk Factor Score *Q: 1 Problem List Initiated/Reviewed/Updated: Yes Orders Last 24hrs: Active Orders 24 hr Category Date Time Status Patient Status Manage Transfer [TRANSFER] Routine ADT 09/02/18 18:41 Active Iopamidol [Isovue-300 (61%)] Med 09/02/18 17:45 Active 100 ml IV . DIRECTED Lactated Ringers [Ringers, Lactated] 1,000 ml Med 09/02/18 16:00 Active IV ASDIRECTED Sodium Chloride 0.9% [Normal Saline] 80 ml Med 09/02/18 17:45 Active IV ASDIRECTED Sodium Chloride 0.9% [Saline Flush] Med 09/02/18 17:32 Active 10 ml FLUSH ASDIRECTED PRN Resuscitation Status Routine Resus Stat 09/02/18 18:43 Ordered Medication Orders Lactated Ringer's (Ringers, Lactated) 1,000 mls @ 999 mls/hr IV ASDIRECTED [facility] Last Admin: 09/02/18 16:11 Dose: 999 mls/hr Sodium Chloride (Normal Saline) 80 mls @ 3 mls/sec IV ASDIRECTED [facility] Last Admin: 09/02/18 17:49 Dose: 3 mls/sec Iopamidol (Isovue-300 (61%)) 100 ml IV . DIRECTED [facility] Last Admin: 09/02/18 17:49 Dose: 100 ml Sodium Chloride (Saline Flush) 10 ml FLUSH ASDIRECTED PRN PRN Reason: Keep Vein Open Last Admin: 09/02/18 17:49 Dose: 10 ml Assessment/Plan Comment:: ASSESSMENT AND PLAN Acute alcoholic induced pancreatitis -lipase level elevated, severe abdominal pain consistent with pancreatitis. Recurrent episodes likely secondary to ongoing alcohol use. -IV fluids for hydration -Follow-up lactic acid level tonight and again in a.m. -Nothing by mouth -Repeat lipase level in a.m. -Pain and Nausea management as indicated Alcohol withdrawal with delirium - severe alcohol withdrawal noted during last hospitalization -CIWA every 4 hours -Lorazepam alcohol withdrawal protocol -Gabapentin 400 mg 3 times a day -Alcohol withdrawal protocol -Thiamine and folate daily Alcohol gastritis-suspect that some of his current pain is related to gastritis from recurrent alcohol use -Protonix 40 mg IV every 12 hours Maintenance issues - - DVT prophylaxis - SCUDs - GI prophylaxis - PPI as above - Nutrition - nothing by mouth - [place] catheter - not indicated Disposition - I would anticipate discharge home after the hospital stay Primary care physician - Kimberly Vega - Delfin Kathleen
[2018-09-02] MEDS ORDERED: Albuterol 0.083% 2.5 MG/3 ML Neb Soln NEB PRN (19:17)
[2018-09-02] MEDS ORDERED: MVI, Adult with Vitamin K 10 ML, Thiamine 100 MG, Folic Acid 1 MG, Magnesium Sulfate 2 ... IV ONE ×5 (19:17)
[2018-09-02] MEDS ORDERED: Nicotine 21 MG/24 Hr Patch TRDERM SCH (19:17)
[2018-09-02] MEDS: Lactated Ringers 1,000 ML IV SCH (19:45)
[2018-09-02] MEDS: HYDROmorphone 1 MG/ML Syringe IVPUSH PRN (19:52)
[2018-09-02] MEDS: Ondansetron 4 MG/2 ML SDV IV PRN (19:53)
[2018-09-02] MEDS: Thiamine 100 MG Tab PO SCH (20:03)
[2018-09-02] MEDS: Pantoprazole 40 MG Vial IV SCH (20:04)
[2018-09-02] MEDS: Folic Acid 1 MG Tab PO SCH (20:04)
[2018-09-02] MEDS: Gabapentin 400 MG Cap PO SCH (20:52)
[2018-09-02] MEDS: LORazepam 2 MG/ML SDV IV SCH (20:55)
[2018-09-03] MEDS: HYDROmorphone 1 MG/ML Syringe IVPUSH PRN ×7 (01:40→23:20)
[2018-09-03] MEDS: Lactated Ringers 1,000 ML IV SCH (03:20)
[2018-09-03] MEDS: Gabapentin 400 MG Cap PO SCH ×3 (04:28→20:59)
[2018-09-03] MEDS: Ondansetron 4 MG/2 ML SDV IV PRN ×2 (04:39→20:59)
[2018-09-03] MEDS: LORazepam 2 MG/ML SDV IV SCH ×3 (04:57→21:12)
[2018-09-03] MEDS: Pantoprazole 40 MG Vial IV SCH (08:35)
[2018-09-03] MEDS: Tamsulosin 0.4 MG Cap.ER PO SCH (08:51)
[2018-09-03] MEDS: Folic Acid 1 MG Tab PO SCH (08:51)
[2018-09-03] MEDS: Thiamine 100 MG Tab PO SCH (08:51)
--- NOTE | 2018-09-03 09:37 | PCM.PN ---
- General Info Date of Service: 09/03/18 Subjective Update: Mr. Ortega has been stable since admission last night, fairly sedated this morning but appears to be comfortable. When he is awakened reports severe pain, but quickly falls back to sleep. Lipase level has improved, not yet normalized. Showing evidence of mild alcohol withdrawal. Because of current sedation is unable to provide information concerning symptoms or review of systems. - Patient Data Vitals - Most Recent: Last Vital Signs Temp 98.2 F 09/02/18 19:17 Pulse 96 09/03/18 06:00 Resp 7 L 09/03/18 06:00 BP 100/61 09/03/18 06:00 Pulse Ox 96 09/03/18 06:00 Weight - Most Recent: 155 lb 8.013 oz I&O - Last 24 Hours: Intake & Output 09/02/18 09/03/18 09/03/18 22:59 06:59 14:59 Intake Total 2355 Output Total 780 Balance 1575 Lab Results Last 24 Hours: Laboratory Results - last 24 hr 09/02/18 09/02/18 09/02/18 Range/Units 15:50 15:50 15:50 WBC 4.6 (4.5-11.0) K/uL RBC 3.89 L (4.30-5.90) M/uL Hgb 13.0 (12.0-15.0) g/dL Hct 38.5 L (40.0-54.0) % MCV 99 H (80-98) fL MCH 33 H (27-31) pg MCHC 34 (32-36) % Plt Count 205 (150-400) K/uL Neut % (Auto) 53 (36-66) % Lymph % (Auto) 35 (24-44) % [place] % (Auto) 9 H (2-6) % Eos % (Auto) 2 (2-4) % Baso % (Auto) 1 (0-1) % Sodium 142 (140-148) mmol/L Potassium 3.9 (3.6-5.2) mmol/L Chloride 102 (100-108) mmol/L Carbon Dioxide 25 (21-32) mmol/L Anion Gap 15.0 H (5.0-14.0) mmol/L BUN 12 (7-18) mg/dL Creatinine 0.7 L (0.8-1.3) mg/dL Est Cr Clr Drug Dosing 126.22 mL/min Estimated GFR (MDRD) > 60 (>60) Glucose 72 L (74-106) mg/dL Lactic Acid 3.7 H (0.4-2.0) mmol/L Calcium 8.5 (8.5-10.1) mg/dL Magnesium (1.8-2.4) mg/dL Total Bilirubin 0.7 (0.2-1.0) mg/dL AST 258 H D (15-37) U/L ALT 48 (12-78) U/L Alkaline Phosphatase 90 (46-116) U/L Troponin I < 0.017 (0.000-0.056) ng/mL Total Protein 7.7 (6.4-8.2) g/dL Albumin 3.9 (3.4-5.0) g/dL Globulin 3.8 H (2.3-3.5) g/dL Albumin/Globulin Ratio 1.0 L (1.2-2.2) Lipase 1642 H (73-393) U/L Urine Color Urine Appearance Urine pH (4.5-8.0) Ur Specific [place] (1.008-1.030) Urine Protein (NEGATIVE) mg/dL Urine Glucose (UA) (NEGATIVE) mg/dL Urine Ketones (NEGATIVE) mg/dL Urine Occult Blood (NEGATIVE) Urine Nitrite (NEGAITVE) Urine Bilirubin (NEGATIVE) Urine Urobilinogen (NORMAL) mg/dL Ur Leukocyte Esterase (NEGATIVE) Urine RBC (0-5) Urine WBC (0-5) Ur Epithelial Cells Amorphous Sediment Urine Bacteria Urine Mucus Urine Opiates Screen (NEGATIVE) Ur Oxycodone Screen (NEGATIVE) Urine Methadone Screen (NEGATIVE) Ur Propoxyphene Screen (NEGATIVE) Ur Barbiturates Screen (NEGATIVE) Ur Tricyclics Screen (NEGATIVE) Ur Phencyclidine Scrn (NEGATIVE) Ur Amphetamine Screen (NEGATIVE) U Methamphetamines Scrn (NEGATIVE) Urine MDMA Screen (NEGATIVE) U Benzodiazepines Scrn (NEGATIVE) U Cocaine Metab Screen (NEGATIVE) U Marijuana (THC) Screen (NEGATIVE) Ethyl Alcohol mg/dL 09/02/18 09/02/18 09/02/18 Range/Units 15:51 16:56 16:56 WBC (4.5-11.0) K/uL RBC (4.30-5.90) M/uL Hgb (12.0-15.0) g/dL Hct (40.0-54.0) % MCV (80-98) fL MCH (27-31) pg MCHC (32-36) % Plt Count (150-400) K/uL Neut % (Auto) (36-66) % Lymph % (Auto) (24-44) % [place] % (Auto) (2-6) % Eos % (Auto) (2-4) % Baso % (Auto) (0-1) % Sodium (140-148) mmol/L Potassium (3.6-5.2) mmol/L Chloride (100-108) mmol/L Carbon Dioxide (21-32) mmol/L Anion Gap (5.0-14.0) mmol/L BUN (7-18) mg/dL Creatinine (0.8-1.3) mg/dL Est Cr Clr Drug Dosing mL/min Estimated GFR (MDRD) (>60) Glucose (74-106) mg/dL Lactic Acid (0.4-2.0) mmol/L Calcium (8.5-10.1) mg/dL Magnesium (1.8-2.4) mg/dL Total Bilirubin (0.2-1.0) mg/dL AST (15-37) U/L ALT (12-78) U/L Alkaline Phosphatase (46-116) U/L Troponin I (0.000-0.056) ng/mL Total Protein (6.4-8.2) g/dL Albumin (3.4-5.0) g/dL Globulin (2.3-3.5) g/dL Albumin/Globulin Ratio (1.2-2.2) Lipase (73-393) U/L Urine Color Yellow Urine Appearance Clear Urine pH 5.0 (4.5-8.0) Ur Specific [place] 1.010 (1.008-1.030) Urine Protein Trace (NEGATIVE) mg/dL Urine Glucose (UA) Normal (NEGATIVE) mg/dL Urine Ketones 50 H (NEGATIVE) mg/dL Urine Occult Blood Small (NEGATIVE) Urine Nitrite Negative (NEGAITVE) Urine Bilirubin Negative (NEGATIVE) Urine Urobilinogen Normal (NORMAL) mg/dL Ur Leukocyte Esterase Negative (NEGATIVE) Urine RBC 0-5 (0-5) Urine WBC 0-5 (0-5) Ur Epithelial Cells Rare Amorphous Sediment Rare Urine Bacteria Rare Urine Mucus Few Urine Opiates Screen Presumptive positive H (NEGATIVE) Ur Oxycodone Screen Negative (NEGATIVE) Urine Methadone Screen Negative (NEGATIVE) Ur Propoxyphene Screen Negative (NEGATIVE) Ur Barbiturates Screen Negative (NEGATIVE) Ur Tricyclics Screen Negative (NEGATIVE) Ur Phencyclidine Scrn Negative (NEGATIVE) Ur Amphetamine Screen Negative (NEGATIVE) U Methamphetamines Scrn Negative (NEGATIVE) Urine MDMA Screen Negative (NEGATIVE) U Benzodiazepines Scrn Negative (NEGATIVE) U Cocaine Metab Screen Negative (NEGATIVE) U Marijuana (THC) Screen Negative (NEGATIVE) Ethyl Alcohol 368 mg/dL 09/02/18 09/03/18 09/03/18 Range/Units 22:00 00:40 00:40 WBC (4.5-11.0) K/uL RBC (4.30-5.90) M/uL Hgb (12.0-15.0) g/dL Hct (40.0-54.0) % MCV (80-98) fL MCH (27-31) pg MCHC (32-36) % Plt Count (150-400) K/uL Neut % (Auto) (36-66) % Lymph % (Auto) (24-44) % [place] % (Auto) (2-6) % Eos % (Auto) (2-4) % Baso % (Auto) (0-1) % Sodium (140-148) mmol/L Potassium (3.6-5.2) mmol/L Chloride (100-108) mmol/L Carbon Dioxide (21-32) mmol/L Anion Gap (5.0-14.0) mmol/L BUN (7-18) mg/dL Creatinine (0.8-1.3) mg/dL Est Cr Clr Drug Dosing mL/min Estimated GFR (MDRD) (>60) Glucose (74-106) mg/dL Lactic Acid 2.5 H 2.4 H (0.4-2.0) mmol/L Calcium (8.5-10.1) mg/dL Magnesium (1.8-2.4) mg/dL Total Bilirubin (0.2-1.0) mg/dL AST (15-37) U/L ALT (12-78) U/L Alkaline Phosphatase (46-116) U/L Troponin I (0.000-0.056) ng/mL Total Protein (6.4-8.2) g/dL Albumin (3.4-5.0) g/dL Globulin (2.3-3.5) g/dL Albumin/Globulin Ratio (1.2-2.2) Lipase 633 H (73-393) U/L Urine Color Urine Appearance Urine pH (4.5-8.0) Ur Specific [place] (1.008-1.030) Urine Protein (NEGATIVE) mg/dL Urine Glucose (UA) (NEGATIVE) mg/dL Urine Ketones (NEGATIVE) mg/dL Urine Occult Blood (NEGATIVE) Urine Nitrite (NEGAITVE) Urine Bilirubin (NEGATIVE) Urine Urobilinogen (NORMAL) mg/dL Ur Leukocyte Esterase (NEGATIVE) Urine RBC (0-5) Urine WBC (0-5) Ur Epithelial Cells Amorphous Sediment Urine Bacteria Urine Mucus Urine Opiates Screen (NEGATIVE) Ur Oxycodone Screen (NEGATIVE) Urine Methadone Screen (NEGATIVE) Ur Propoxyphene Screen (NEGATIVE) Ur Barbiturates Screen (NEGATIVE) Ur Tricyclics Screen (NEGATIVE) Ur Phencyclidine Scrn (NEGATIVE) Ur Amphetamine Screen (NEGATIVE) U Methamphetamines Scrn (NEGATIVE) Urine MDMA Screen (NEGATIVE) U Benzodiazepines Scrn (NEGATIVE) U Cocaine Metab Screen (NEGATIVE) U Marijuana (THC) Screen (NEGATIVE) Ethyl Alcohol mg/dL 09/03/18 09/03/18 Range/Units 00:40 00:40 WBC 5.0 (4.5-11.0) K/uL RBC 3.24 L (4.30-5.90) M/uL Hgb 10.9 L D (12.0-15.0) g/dL Hct 33.3 L (40.0-54.0) % MCV 103 H (80-98) fL MCH 34 H (27-31) pg MCHC 33 (32-36) % Plt Count 177 (150-400) K/uL Neut % (Auto) 76 H (36-66) % Lymph % (Auto) 11 L (24-44) % [place] % (Auto) 12 H (2-6) % Eos % (Auto) 0 L (2-4) % Baso % (Auto) 0 (0-1) % Sodium 141 (140-148) mmol/L Potassium 4.4 (3.6-5.2) mmol/L Chloride 102 (100-108) mmol/L Carbon Dioxide 27 (21-32) mmol/L Anion Gap 12.3 (5.0-14.0) mmol/L BUN 10 (7-18) mg/dL Creatinine 0.6 L (0.8-1.3) mg/dL Est Cr Clr Drug Dosing 138.78 mL/min Estimated GFR (MDRD) > 60 (>60) Glucose 73 L (74-106) mg/dL Lactic Acid (0.4-2.0) mmol/L Calcium 7.9 L (8.5-10.1) mg/dL Magnesium 1.6 L (1.8-2.4) mg/dL Total Bilirubin 0.5 (0.2-1.0) mg/dL AST 349 H (15-37) U/L ALT 158 H (12-78) U/L Alkaline Phosphatase 130 H (46-116) U/L Troponin I (0.000-0.056) ng/mL Total Protein 6.7 (6.4-8.2) g/dL Albumin 3.4 (3.4-5.0) g/dL Globulin 3.3 (2.3-3.5) g/dL Albumin/Globulin Ratio 1.0 L (1.2-2.2) Lipase (73-393) U/L Urine Color Urine Appearance Urine pH (4.5-8.0) Ur Specific [place] (1.008-1.030) Urine Protein (NEGATIVE) mg/dL Urine Glucose (UA) (NEGATIVE) mg/dL Urine Ketones (NEGATIVE) mg/dL Urine Occult Blood (NEGATIVE) Urine Nitrite (NEGAITVE) Urine Bilirubin (NEGATIVE) Urine Urobilinogen (NORMAL) mg/dL Ur Leukocyte Esterase (NEGATIVE) Urine RBC (0-5) Urine WBC (0-5) Ur Epithelial Cells Amorphous Sediment Urine Bacteria Urine Mucus Urine Opiates Screen (NEGATIVE) Ur Oxycodone Screen (NEGATIVE) Urine Methadone Screen (NEGATIVE) Ur Propoxyphene Screen (NEGATIVE) Ur Barbiturates Screen (NEGATIVE) Ur Tricyclics Screen (NEGATIVE) Ur Phencyclidine Scrn (NEGATIVE) Ur Amphetamine Screen (NEGATIVE) U Methamphetamines Scrn (NEGATIVE) Urine MDMA Screen (NEGATIVE) U Benzodiazepines Scrn (NEGATIVE) U Cocaine Metab Screen (NEGATIVE) U Marijuana (THC) Screen (NEGATIVE) Ethyl Alcohol mg/dL Med Orders - Current: Current Medications Acetaminophen (Tylenol) 650 mg PO Q4H PRN PRN Reason: Pain (Mild 1-3)/fever Albuterol (Proventil Neb Soln) 2.5 mg NEB Q4H PRN PRN Reason: Shortness Of Breath/wheezing Folic Acid (Folic Acid) 1 mg PO DAILY [facility] Last Admin: 09/03/18 08:51 Dose: 1 mg Gabapentin (Neurontin) 400 mg PO Q8H [facility] Last Admin: 09/03/18 04:28 Dose: 400 mg Hydromorphone HCl (Dilaudid) 1 mg IVPUSH Q2H PRN PRN Reason: Pain Magnesium Sulfate 2 gm/ Premix 50 mls @ 25 mls/hr IV Q6H [facility] Stop: 09/03/18 17:59 Lorazepam (Ativan) 0 mg IV ASDIRECTED [facility]; Protocol Last Admin: 09/03/18 07:37 Dose: 2 mg Magnesium Oxide (Magnesium Oxide) 400 mg PO BID [facility] Nicotine (Habitrol) 21 mg TRDERM BEDTIME [facility] Ondansetron HCl (Zofran) 4 mg IV Q4H PRN PRN Reason: Nausea/Vomiting Last Admin: 09/03/18 04:39 Dose: 4 mg Pantoprazole Sodium (Protonix Iv) 40 mg IV Q12H [facility] Last Admin: 09/03/18 08:35 Dose: 40 mg Sodium Chloride (Saline Flush) 10 ml FLUSH ASDIRECTED PRN PRN Reason: Keep Vein Open Tamsulosin HCl (Flomax) 0.4 mg PO DAILY [facility] Last Admin: 09/03/18 08:51 Dose: 0.4 mg Thiamine HCl (Vitamin B-1) 100 mg PO DAILY [facility] Last Admin: 09/03/18 08:51 Dose: 100 mg Discontinued Medications Fentanyl (Sublimaze) 50 mcg IVPUSH ONETIME ONE Stop: 09/02/18 15:52 Last Admin: 09/02/18 16:15 Dose: 50 mcg Fentanyl (Sublimaze) 100 mcg IVPUSH ONETIME ONE Stop: 09/02/18 17:27 Last Admin: 09/02/18 17:30 Dose: 100 mcg Gabapentin (Neurontin) 400 mg PO NOW STA Stop: 09/02/18 15:52 Last Admin: 09/02/18 16:39 Dose: 400 mg Hydromorphone HCl (Dilaudid) 1 mg IVPUSH ONETIME ONE Stop: 09/02/18 18:13 Last Admin: 09/02/18 18:17 Dose: 1 mg Hydromorphone HCl (Dilaudid) 2 mg IVPUSH Q1H PRN PRN Reason: Pain Last Admin: 09/03/18 07:26 Dose: 2 mg Lactated Ringer's (Ringers, Lactated) 1,000 mls @ 999 mls/hr IV ASDIRECTED [facility] Last Admin: 09/02/18 16:11 Dose: 999 mls/hr Sodium Chloride (Normal Saline) 80 mls @ 3 mls/sec IV ASDIRECTED [facility] Last Admin: 09/02/18 17:49 Dose: 3 mls/sec Multivitamins/Minerals 10 ml/Thiamine HCl 100 mg/ Folic Acid 1 mg/ Magnesium Sulfate 2 gm/ Sodium Chloride 1,015.2 mls @ 100 mls/hr IV ONETIME ONE Stop: 09/03/18 05:26 Last Admin: 09/02/18 20:38 Dose: 100 mls/hr Lactated Ringer's (Ringers, Lactated) 1,000 mls @ 125 mls/hr IV ASDIRECTED [facility] Last Admin: 09/03/18 03:20 Dose: 125 mls/hr Iopamidol (Isovue-300 (61%)) 100 ml IV . DIRECTED [facility] Last Admin: 09/02/18 17:49 Dose: 100 ml Nicotine (Habitrol) 21 mg TRDERM DAILY [facility] Last Admin: 09/02/18 20:08 Dose: 21 mg Ondansetron HCl (Zofran) 4 mg IVPUSH ONETIME ONE Stop: 09/02/18 15:52 Last Admin: 09/02/18 16:13 Dose: 4 mg Sodium Chloride (Saline Flush) 10 ml FLUSH ASDIRECTED PRN PRN Reason: Keep Vein Open Last Admin: 09/02/18 17:49 Dose: 10 ml - Exam Quality Assessment: DVT Prophylaxis General: Sedated, Lethargic Lungs: Clear to Auscultation, Normal Respiratory Effort Cardiovascular: Regular Rate, Regular Rhythm, No Murmurs GI/Abdominal Exam: No Organomegaly, Tender. No: Distended, Guarding, Rigid, Rebound Extremities: Non-Tender, No Pedal Edema - Problem List Review Problem List Initiated/Reviewed/Updated: Yes - My Orders Last 24 Hours: My Active Orders 09/02/18 18:43 Resuscitation Status Routine 09/02/18 19:17 Patient Status [ADT] Routine Ambulate [RC] QID CIWAA Assessment [RC] Q2H Cardiac Monitoring [RC] Q6H Height and Weight [RC] DAILY Intake and Output [RC] QSHIFT Notify Provider Vital Signs [RC] ASDIRECTED Notify Provider [RC] PRN Oxygen Therapy [RC] PRN Peripheral IV Care [RC] . DIRECTED Pulse Oximetry [RC] CONTINUOUS RT Aerosol Therapy [RC] ASDIRECTED Up With Assistance [RC] ASDIRECTED Up to Chair [RC] QID VTE/DVT Education [RC] Per Unit Routine Vital Signs [RC] Q1H Acetaminophen [Tylenol] 650 mg PO Q4H PRN Albuterol [Proventil Neb Soln] 2.5 mg NEB Q4H PRN Folic Acid 1 mg PO DAILY LORazepam [Ativan] See Protocol IV ASDIRECTED Ondansetron [Zofran] 4 mg IV Q4H PRN Sodium Chloride 0.9% [Saline Flush] 10 ml FLUSH ASDIRECTED PRN Thiamine [Vitamin B-1] 100 mg PO DAILY Peripheral IV Insertion Adult [OM.PC] Routine Sequential Compression Device [OM.PC] Per Unit Routine 09/02/18 20:00 Pantoprazole [ProTONIX IV] 40 mg IV Q12H 09/02/18 21:00 Gabapentin [Neurontin] 400 mg PO Q8H 09/03/18 09:00 Tamsulosin [Flomax] 0.4 mg PO DAILY 09/03/18 09:30 HYDROmorphone [Dilaudid] 1 mg IVPUSH Q2H PRN 09/03/18 09:31 Convert IV to Saline Lock [OM.PC] Routine 09/03/18 10:00 Magnesium Sulfate/Water [Magnesium Sulfate 2 GM in Water 50 ML] 2 gm Premix Bag 1 bag IV Q6H 09/03/18 21:00 Magnesium Oxide 400 mg PO BID Nicotine [Habitrol] 21 mg TRDERM BEDTIME 09/03/18 Breakfast Clear Liquid Diet [DIET] 09/04/18 05:00 COMPREHENSIVE METABOLIC PN,CMP [CHEM] Timed LIPASE [CHEM] Timed - Plan Plan:: ASSESSMENT AND PLAN Acute alcoholic induced pancreatitis -improved since admission, pain appears to be fairly well controlled. Lipase level improved, not yet normalized. -Saline lock IV -Clear liquid diet -Repeat lipase level in a.m. 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
[2018-09-03] MEDS: Magnesium Sulfate/Water 2 GM in Premix Bag 1 BAG IV SCH ×2 (10:30→16:38)
[2018-09-03] MEDS: Pantoprazole 40 MG Tab.CR PO SCH (16:37)
[2018-09-03] MEDS: Sodium Chloride 0.9% 10 ML Syringe FLUSH PRN ×3 (19:16→23:21)
[2018-09-03] MEDS: Magnesium Oxide 400 MG Tab PO SCH (21:00)
[2018-09-03] MEDS: Nicotine 21 MG/24 Hr Patch TRDERM SCH (21:00)
[2018-09-04] MEDS: Acetaminophen 325 MG Tab PO PRN ×4 (00:47→22:08)
[2018-09-04] MEDS: HYDROmorphone 1 MG/ML Syringe IVPUSH PRN ×3 (01:37→09:01)
[2018-09-04] MEDS: Sodium Chloride 0.9% 10 ML Syringe FLUSH PRN ×3 (01:37→06:40)
[2018-09-04] MEDS: LORazepam 2 MG/ML SDV IV SCH (02:38)
[2018-09-04] MEDS: Gabapentin 400 MG Cap PO SCH ×3 (04:43→22:08)
[2018-09-04] MEDS: Pantoprazole 40 MG Tab.CR PO SCH ×2 (07:40→16:27)
[2018-09-04] MEDS: Folic Acid 1 MG Tab PO SCH (09:04)
[2018-09-04] MEDS: Tamsulosin 0.4 MG Cap.ER PO SCH (09:04)
[2018-09-04] MEDS: Thiamine 100 MG Tab PO SCH (09:04)
[2018-09-04] MEDS: Magnesium Oxide 400 MG Tab PO SCH ×2 (09:04→22:08)
--- NOTE | 2018-09-04 09:52 | PCM.PN ---
- General Info Date of Service: 09/04/18 Subjective Update: Mr. Ortega is been stable since yesterday, lipase level has normalized. He continues to experience alcohol withdrawal symptoms but is not currently experiencing hallucinations. Functional Status: Reports: Tolerating Diet, Ambulating, Urinating - Review of Systems Pulmonary: Reports: No Symptoms Cardiovascular: Reports: No Symptoms Gastrointestinal: Reports: No Symptoms - Patient Data Vitals - Most Recent: Last Vital Signs Temp 98.9 F 09/04/18 07:00 Pulse 88 09/04/18 08:00 Resp 11 L 09/04/18 07:00 BP 117/70 09/04/18 08:00 Pulse Ox 98 09/04/18 08:00 Weight - Most Recent: 160 lb 3 oz I&O - Last 24 Hours: Intake & Output 09/03/18 09/04/18 09/04/18 22:59 06:59 14:59 Intake Total 660 Output Total 730 875 Balance -70 -875 Lab Results Last 24 Hours: Laboratory Results - last 24 hr 09/04/18 Range/Units 04:50 Sodium 131 L (140-148) mmol/L Potassium 4.2 (3.6-5.2) mmol/L Chloride 94 L (100-108) mmol/L Carbon Dioxide 32 (21-32) mmol/L Anion Gap 9.2 (5.0-14.0) mmol/L BUN 5 L (7-18) mg/dL Creatinine 0.6 L (0.8-1.3) mg/dL Est Cr Clr Drug Dosing 142.96 mL/min Estimated GFR (MDRD) > 60 (>60) Glucose 146 H (74-106) mg/dL Calcium 8.1 L (8.5-10.1) mg/dL Total Bilirubin 1.0 D (0.2-1.0) mg/dL AST 110 H (15-37) U/L ALT 100 H (12-78) U/L Alkaline Phosphatase 112 (46-116) U/L Total Protein 6.8 (6.4-8.2) g/dL Albumin 3.3 L (3.4-5.0) g/dL Globulin 3.5 (2.3-3.5) g/dL Albumin/Globulin Ratio 0.9 L (1.2-2.2) Lipase 148 (73-393) U/L Med Orders - Current: Current Medications Acetaminophen (Tylenol) 650 mg PO Q4H PRN PRN Reason: Pain (Mild 1-3)/fever Last Admin: 09/04/18 07:40 Dose: 650 mg Albuterol (Proventil Neb Soln) 2.5 mg NEB Q4H PRN PRN Reason: Shortness Of Breath/wheezing Folic Acid (Folic Acid) 1 mg PO DAILY [facility] Last Admin: 09/04/18 09:04 Dose: 1 mg Gabapentin (Neurontin) 400 mg PO Q8H [facility] Last Admin: 09/04/18 04:43 Dose: 400 mg Lorazepam (Ativan) 0 mg IV ASDIRECTED [facility]; Protocol Last Admin: 09/04/18 02:38 Dose: 2 mg Magnesium Oxide (Magnesium Oxide) 400 mg PO BID [facility] Last Admin: 09/04/18 09:04 Dose: 400 mg Nicotine (Habitrol) 21 mg TRDERM BEDTIME [facility] Last Admin: 09/03/18 21:00 Dose: 21 mg Ondansetron HCl (Zofran) 4 mg IV Q4H PRN PRN Reason: Nausea/Vomiting Last Admin: 09/03/18 20:59 Dose: 4 mg Pantoprazole Sodium (Protonix) 40 mg PO BIDAC [facility] Last Admin: 09/04/18 07:40 Dose: 40 mg Sodium Chloride (Saline Flush) 10 ml FLUSH ASDIRECTED PRN PRN Reason: Keep Vein Open Last Admin: 09/04/18 06:40 Dose: 10 ml Tamsulosin HCl (Flomax) 0.4 mg PO DAILY [facility] Last Admin: 09/04/18 09:04 Dose: 0.4 mg Thiamine HCl (Vitamin B-1) 100 mg PO DAILY [facility] Last Admin: 09/04/18 09:04 Dose: 100 mg Discontinued Medications Fentanyl (Sublimaze) 50 mcg IVPUSH ONETIME ONE Stop: 09/02/18 15:52 Last Admin: 09/02/18 16:15 Dose: 50 mcg Fentanyl (Sublimaze) 100 mcg IVPUSH ONETIME ONE Stop: 09/02/18 17:27 Last Admin: 09/02/18 17:30 Dose: 100 mcg Gabapentin (Neurontin) 400 mg PO NOW STA Stop: 09/02/18 15:52 Last Admin: 09/02/18 16:39 Dose: 400 mg Hydromorphone HCl (Dilaudid) 1 mg IVPUSH ONETIME ONE Stop: 09/02/18 18:13 Last Admin: 09/02/18 18:17 Dose: 1 mg Hydromorphone HCl (Dilaudid) 2 mg IVPUSH Q1H PRN PRN Reason: Pain Last Admin: 09/03/18 07:26 Dose: 2 mg Hydromorphone HCl (Dilaudid) 1 mg IVPUSH Q2H PRN PRN Reason: Pain Last Admin: 09/04/18 09:01 Dose: 1 mg Lactated Ringer's (Ringers, Lactated) 1,000 mls @ 999 mls/hr IV ASDIRECTED [facility] Last Admin: 09/02/18 16:11 Dose: 999 mls/hr Sodium Chloride (Normal Saline) 80 mls @ 3 mls/sec IV ASDIRECTED [facility] Last Admin: 09/02/18 17:49 Dose: 3 mls/sec Multivitamins/Minerals 10 ml/Thiamine HCl 100 mg/ Folic Acid 1 mg/ Magnesium Sulfate 2 gm/ Sodium Chloride 1,015.2 mls @ 100 mls/hr IV ONETIME ONE Stop: 09/03/18 05:26 Last Admin: 09/02/18 20:38 Dose: 100 mls/hr Lactated Ringer's (Ringers, Lactated) 1,000 mls @ 125 mls/hr IV ASDIRECTED [facility] Last Admin: 09/03/18 03:20 Dose: 125 mls/hr Magnesium Sulfate 2 gm/ Premix 50 mls @ 25 mls/hr IV Q6H [facility] Stop: 09/03/18 17:59 Last Admin: 09/03/18 16:38 Dose: 25 mls/hr Iopamidol (Isovue-300 (61%)) 100 ml IV . DIRECTED [facility] Last Admin: 09/02/18 17:49 Dose: 100 ml Nicotine (Habitrol) 21 mg TRDERM DAILY [facility] Last Admin: 09/02/18 20:08 Dose: 21 mg Ondansetron HCl (Zofran) 4 mg IVPUSH ONETIME ONE Stop: 09/02/18 15:52 Last Admin: 09/02/18 16:13 Dose: 4 mg Pantoprazole Sodium (Protonix Iv) 40 mg IV Q12H [facility] Last Admin: 09/03/18 08:35 Dose: 40 mg Sodium Chloride (Saline Flush) 10 ml FLUSH ASDIRECTED PRN PRN Reason: Keep Vein Open Last Admin: 09/02/18 17:49 Dose: 10 ml - Exam General: Oriented, Cooperative, No Acute Distress, Sedated Lungs: Clear to Auscultation, Normal Respiratory Effort Cardiovascular: Regular Rate, Regular Rhythm, No Murmurs GI/Abdominal Exam: Soft, No Organomegaly, No Distention, Tender. No: Distended , Guarding, Rigid, Rebound Extremities: Non-Tender, No Pedal Edema - Problem List Review Problem List Initiated/Reviewed/Updated: Yes - My Orders Last 24 Hours: My Active Orders 09/03/18 09:00 Tamsulosin [Flomax] 0.4 mg PO DAILY 09/03/18 09:31 Convert IV to Saline Lock [OM.PC] Routine 09/03/18 16:30 Pantoprazole [ProTONIX] 40 mg PO BIDAC 09/03/18 21:00 Magnesium Oxide 400 mg PO BID Nicotine [Habitrol] 21 mg TRDERM BEDTIME 09/03/18 Dinner Regular Diet [DIET] - Plan Plan:: ASSESSMENT AND PLAN Acute alcoholic induced pancreatitis -resolved -Saline lock IV -Regular diet Alcohol withdrawal with delirium - persistent symptoms of withdrawal, no hallucinations -CIWA every 4 hours -Lorazepam alcohol withdrawal protocol -Gabapentin 400 mg 3 times a day -Alcohol withdrawal protocol -Thiamine and folate daily 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
[2018-09-04] MEDS: LORazepam 0.5 MG Tab PO PRN ×2 (18:02→22:07)
[2018-09-04] MEDS: Ibuprofen 600 MG Tab PO PRN (18:02)
[2018-09-04] MEDS: Nicotine 21 MG/24 Hr Patch TRDERM SCH (22:03)
[2018-09-05] MEDS: Gabapentin 400 MG Cap PO SCH (05:26)
[2018-09-05] MEDS: Ibuprofen 600 MG Tab PO PRN (05:29)
[2018-09-05] MEDS: Pantoprazole 40 MG Tab.CR PO SCH (08:15)
[2018-09-05] MEDS: Magnesium Oxide 400 MG Tab PO SCH (08:49)
[2018-09-05] MEDS: Tamsulosin 0.4 MG Cap.ER PO SCH (08:50)
[2018-09-05] MEDS: Folic Acid 1 MG Tab PO SCH (08:51)
[2018-09-05] MEDS: Thiamine 100 MG Tab PO SCH (08:51)
--- NOTE | 2018-09-05 09:56 | PCM.DCSUM1 ---
Discharge Summary - Hospital Course Brief History: Mr. Ortega is a 53-year-old gentleman who was admitted through the emergency department with abdominal pain, nausea, and vomiting, secondary to acute recurrent pancreatitis secondary to alcohol use. - Discharge Data Discharge Date: 09/05/18 Discharge Disposition: Home, Self-Care 01 Condition: Fair - Discharge Diagnosis/Problem(s) (1) Gastritis SNOMED Code(s): 7225601 ICD Code: K29.70 - GASTRITIS, UNSPECIFIED, WITHOUT BLEEDING Status: Acute Current Visit: No Qualifiers: Gastritis type: alcoholic Chronicity: acute Gastritis bleeding: without bleeding Qualified Code(s): K29.20 - Alcoholic gastritis without bleeding (2) Alcohol withdrawal delirium, acute, hyperactive SNOMED Code(s): 3096758, 08777276 ICD Code: F10.231 - ALCOHOL DEPENDENCE WITH WITHDRAWAL DELIRIUM Status: Acute Current Visit: No (3) Acute alcoholic pancreatitis SNOMED Code(s): 968204452 ICD Code: K85.20 - ALCOHOL INDUCED ACUTE PANCREATITIS WITHOUT NECROSIS OR INFCT Status: Acute Current Visit: No (4) ETOH abuse SNOMED Code(s): 68917127 ICD Code: F10.10 - ALCOHOL ABUSE, UNCOMPLICATED Status: Chronic Current Visit: No - Patient Summary/Data Hospital Course: Mr. Ortega is a 53-year-old gentleman who was admitted through the emergency department for further evaluation and management of abdominal pain secondary to alcohol-induced pancreatitis. This will be his fourth admission in the past few months for alcohol related pancreatitis. He was hospitalized at this facility in the early portion of July with alcohol induced pancreatitis and did experience severe alcohol withdrawal requiring prolonged hospitalization. He started drinking immediately after discharge and has continued drinking over the past 3 weeks. 2 days ago began to develop recurrent supraumbilical epigastric abdominal pain associated with nausea and vomiting. He presented to the emergency department today via EMS. Lipase level is elevated at 1600 and he has elevation in lactic acid likely secondary to dehydration. Alcohol level in the emergency department elevated at 368. CT scan of the abdomen and pelvis shows no obvious pancreatic inflammation at the present time. On admission he was started on gabapentin 400 mg every 8 hours for management of expected L call withdrawal. He was given IV fluids for hydration and kept nothing by mouth because of the pancreatitis. He was also placed on alcohol withdrawal protocol and management with lorazepam for alcohol withdrawal. He received a banana bag after admission and was started on oral thiamine and folic acid. He was felt to have a probable component of gastritis contributing to his abdominal pain, started on Protonix 40 mg IV every 12 hours. This was later transitioned to oral Protonix 40 mg every 12 hours and he will be discharged home on the Protonix 40 mg daily. On the day after admission lipase level had improved significantly and he was started on clear liquid diet which was later advanced to a soft low residue diet. He did develop mild symptoms of all withdrawal and was treated intermittently with lorazepam. By the time of discharge he was feeling improved and tolerating a regular diet without significant difficulty. He is strongly encouraged to discontinue all alcohol use. He was offered referral for inpatient or outpatient treatment which he refused. I did explain to him that he consumed alcohol regularly he would likely redevelop gastritis and pancreatitis requiring recurrent hospitalizations. Activity will be as tolerated and he will be on a regular diet. Follow-up appointment will be scheduled with his primary care provider within one week. He will remain on gabapentin 400 mg 3 times daily for management of his chronic pain. - Patient Instructions Diet: Usual Diet as Tolerated, No Alcoholic Beverages Activity: As Tolerated Other/Special Instructions: Please schedule follow-up appointment with primary care provider within one week. - Discharge Plan *PRESCRIPTION DRUG MONITORING PROGRAM REVIEWED*: Not Applicable *COPY OF PRESCRIPTION DRUG MONITORING REPORT IN PATIENT EMIGDIO: Not Applicable Prescriptions/Med Rec: Gabapentin [Neurontin] 400 mg PO TID #90 capsule Pantoprazole [ProTONIX] 40 mg PO DAILY #30 tab.cr Home Medications: Home Meds Tamsulosin [Flomax] 0.4 mg PO DAILY #30 cap.er 08/09/18 [Rx] Gabapentin [Neurontin] 400 mg PO TID #90 capsule 09/05/18 [Rx] Pantoprazole [ProTONIX] 40 mg PO DAILY #30 tab.cr 09/05/18 [Rx] Referrals: PCP,None [Primary Care Provider] - - Discharge Summary/Plan Comment DC Time >30 min.: No - Patient Data Vitals - Most Recent: Last Vital Signs Temp 97.0 F 09/05/18 08:00 Pulse 68 09/05/18 08:00 Resp 15 09/05/18 08:00 BP 115/77 09/05/18 08:00 Pulse Ox 96 09/05/18 08:00 Weight - Most Recent: 160 lb 3 oz I&O - Last 24 hours: Intake & Output 09/04/18 09/05/18 09/05/18 22:59 06:59 14:59 Intake Total 1800 Output Total 225 550 Balance 1575 -550 Med Orders - Current: Current Medications Acetaminophen (Tylenol) 650 mg PO Q4H PRN PRN Reason: Pain (Mild 1-3)/fever Last Admin: 09/04/18 22:08 Dose: 650 mg Albuterol (Proventil Neb Soln) 2.5 mg NEB Q4H PRN PRN Reason: Shortness Of Breath/wheezing Folic Acid (Folic Acid) 1 mg PO DAILY [facility] Last Admin: 09/05/18 08:51 Dose: 1 mg Gabapentin (Neurontin) 400 mg PO Q8H RAFAT Last Admin: 09/05/18 05:26 Dose: 400 mg Ibuprofen (Motrin) 600 mg PO Q6H PRN PRN Reason: Pain Last Admin: 09/05/18 05:29 Dose: 600 mg Lorazepam (Ativan) 0 mg IV ASDIRECTED [facility]; Protocol Last Admin: 09/04/18 02:38 Dose: 2 mg Lorazepam (Ativan) 0.5 mg PO Q4H PRN PRN Reason: Agitation Last Admin: 09/04/18 22:07 Dose: 0.5 mg Magnesium Oxide (Magnesium Oxide) 400 mg PO BID [facility] Last Admin: 09/05/18 08:49 Dose: 400 mg Nicotine (Habitrol) 21 mg TRDERM BEDTIME [facility] Last Admin: 09/04/18 22:03 Dose: 21 mg Ondansetron HCl (Zofran) 4 mg IV Q4H PRN PRN Reason: Nausea/Vomiting Last Admin: 09/03/18 20:59 Dose: 4 mg Pantoprazole Sodium (Protonix) 40 mg PO BIDAC [facility] Last Admin: 09/05/18 08:15 Dose: 40 mg Sodium Chloride (Saline Flush) 10 ml FLUSH ASDIRECTED PRN PRN Reason: Keep Vein Open Last Admin: 09/04/18 06:40 Dose: 10 ml Tamsulosin HCl (Flomax) 0.4 mg PO DAILY [facility] Last Admin: 09/05/18 08:50 Dose: 0.4 mg Thiamine HCl (Vitamin B-1) 100 mg PO DAILY [facility] Last Admin: 09/05/18 08:51 Dose: 100 mg Discontinued Medications Fentanyl (Sublimaze) 50 mcg IVPUSH ONETIME ONE Stop: 09/02/18 15:52 Last Admin: 09/02/18 16:15 Dose: 50 mcg Fentanyl (Sublimaze) 100 mcg IVPUSH ONETIME ONE Stop: 09/02/18 17:27 Last Admin: 09/02/18 17:30 Dose: 100 mcg Gabapentin (Neurontin) 400 mg PO NOW STA Stop: 09/02/18 15:52 Last Admin: 09/02/18 16:39 Dose: 400 mg Hydromorphone HCl (Dilaudid) 1 mg IVPUSH ONETIME ONE Stop: 09/02/18 18:13 Last Admin: 09/02/18 18:17 Dose: 1 mg Hydromorphone HCl (Dilaudid) 2 mg IVPUSH Q1H PRN PRN Reason: Pain Last Admin: 09/03/18 07:26 Dose: 2 mg Hydromorphone HCl (Dilaudid) 1 mg IVPUSH Q2H PRN PRN Reason: Pain Last Admin: 09/04/18 09:01 Dose: 1 mg Lactated Ringer's (Ringers, Lactated) 1,000 mls @ 999 mls/hr IV ASDIRECTED [facility] Last Admin: 09/02/18 16:11 Dose: 999 mls/hr Sodium Chloride (Normal Saline) 80 mls @ 3 mls/sec IV ASDIRECTED [facility] Last Admin: 09/02/18 17:49 Dose: 3 mls/sec Multivitamins/Minerals 10 ml/Thiamine HCl 100 mg/ Folic Acid 1 mg/ Magnesium Sulfate 2 gm/ Sodium Chloride 1,015.2 mls @ 100 mls/hr IV ONETIME ONE Stop: 09/03/18 05:26 Last Admin: 09/02/18 20:38 Dose: 100 mls/hr Lactated Ringer's (Ringers, Lactated) 1,000 mls @ 125 mls/hr IV ASDIRECTED [facility] Last Admin: 09/03/18 03:20 Dose: 125 mls/hr Magnesium Sulfate 2 gm/ Premix 50 mls @ 25 mls/hr IV Q6H [facility] Stop: 09/03/18 17:59 Last Admin: 09/03/18 16:38 Dose: 25 mls/hr Iopamidol (Isovue-300 (61%)) 100 ml IV . DIRECTED [facility] Last Admin: 09/02/18 17:49 Dose: 100 ml Nicotine (Habitrol) 21 mg TRDERM DAILY [facility] Last Admin: 09/02/18 20:08 Dose: 21 mg Ondansetron HCl (Zofran) 4 mg IVPUSH ONETIME ONE Stop: 09/02/18 15:52 Last Admin: 09/02/18 16:13 Dose: 4 mg Pantoprazole Sodium (Protonix Iv) 40 mg IV Q12H [facility] Last Admin: 09/03/18 08:35 Dose: 40 mg Sodium Chloride (Saline Flush) 10 ml FLUSH ASDIRECTED PRN PRN Reason: Keep Vein Open Last Admin: 09/02/18 17:49 Dose: 10 ml - Exam Quality Assessment: Reports: DVT Prophylaxis General: Reports: Alert, Oriented, Cooperative, No Acute Distress Lungs: Reports: Clear to Auscultation, Normal Respiratory Effort Cardiovascular: Reports: Regular Rate, Regular Rhythm, No Murmurs GI/Abdominal Exam: Soft, Non-Tender, No Organomegaly, No Distention
== END 2018-09-05 10:30 | disposition home or self-care (01) | DRG 439 ==
LOC: JP.ED 14:53 → JP.ICU 18:41
PROVIDERS: ADMIT Hospitalist; ATTEND Hospitalist
DX: K85.20 Alcohol induced acute pancreatitis without necrosis or infection (principal); F10.231 Alcohol dependence with withdrawal delirium; K86.0 Alcohol-induced chronic pancreatitis; K29.20 Alcoholic gastritis without bleeding; Y90.8 Blood alcohol level of 240 mg/100 ml or more; G89.29 Other chronic pain; H54.7 Unspecified visual loss; G62.9 Polyneuropathy, unspecified
CPT/HCPCS: 36415; 74177; 80053; 80305-QW; 81001; 83605; 83690; 83735; 84484; 85025; 96361; 96374; 96375; 96376; 99285-25; A9270-GY; C9113; G0480; J1170; J2060; J2405; J3010; J3411; J3475; J3490; J7030; J7120; Q9967

== ENCOUNTER 2018-09-06 21:36 | Emergency (ER) | payer MEDICAID ==
--- NOTE | 2018-09-06 21:59 | EDM.PDOCBH ---
ED HPI GENERAL MEDICAL PROBLEM - General Chief Complaint: Drug or Alcohol Abuse Stated Complaint: ABD PAIN [facility]IA [facility] Time Seen by Provider: 09/06/18 21:40 Source of Information: Reports: Patient, EMS History Limitations: Reports: Intoxication - History of Present Illness INITIAL COMMENTS - FREE TEXT/NARRATIVE: 53-year-old male who left AMA from this hospital 3 days ago, readmitted to [facility] 2 days ago and discharged presents again intoxicated by EMS. Has abdominal discomfort. He does have a history of pancreatitis. His lipase yesterday in [place] was normal. Onset: Unknown/Unsure Associated Symptoms: Reports: Other (Abdominal pain). Denies: Nausea/Vomiting, Shortness of Breath - Related Data Allergies Allergy/AdvReac Type Severity Reaction Status Date / Time No Known Allergies Allergy Verified 09/06/18 21:47 Home Meds: Home Meds Cyclobenzaprine HCl 1 tab PO TID PRN 09/06/18 [History] Fluticasone Propionate [Flonase] 1 spray ABHINAV BID 09/06/18 [History] Folic Acid 1 mg PO DAILY 09/06/18 [History] Gabapentin [Neurontin] 400 mg PO TID 09/06/18 [History] Thiamine HCl [Vitamin B-1] 100 mg PO DAILY 09/06/18 [History] Past Medical History HEENT History: Reports: Impaired Vision Gastrointestinal History: Reports: Pancreatitis Other Gastrointestinal History: pancreatitis Musculoskeletal History: Reports: Fracture Neurological History: Reports: Neuropathy, Peripheral Psychiatric History: Reports: Addiction - Infectious Disease History Infectious Disease History: Reports: Chicken Pox - Past Surgical History GI Surgical History: Reports: EGD Musculoskeletal Surgical History: Reports: Arthroscopic Knee Social & Family History - Family History Family Medical History: Noncontributory - Caffeine Use Caffeine Use: Reports: None ED ROS GENERAL - Review of Systems Review Of Systems: See Below Constitutional: Reports: Malaise. Denies: Fever, Chills HEENT: Reports: No Symptoms Respiratory: Denies: Shortness of Breath, Cough Cardiovascular: Denies: Chest Pain GI/Abdominal: Reports: Abdominal Pain. Denies: Nausea, Vomiting : Reports: No Symptoms Musculoskeletal: Reports: Other (Some sacral tenderness from falling) Skin: Reports: No Symptoms Neurological: Denies: Headache ED EXAM, BEHAVIORAL HEALTH - Physical Exam Exam: See Below Exam Limited By: Intoxication General Appearance: Alert, No Apparent Distress Eye Exam: Bilateral Eye: EOMI (No jaundice) Respiratory/Chest: No Respiratory Distress, Lungs Clear Cardiovascular: Regular Rate, Rhythm. No: Extra Beats GI/Abdominal: Tender (Reacts with tenderness to palpation across the upper abdomen, this is a consistent finding with all his examinations) Back Exam: Other (Patient does have a very small bruise on the left edge of the sacrum and tenderness to palpation, no crepitus or deformity) Extremities: No: Pedal Edema Neurological: Alert, Other (Able to ambulate without help) COURSE, BEHAVIORAL HEALTH COMP - Course Vital Signs: Last Vital Signs Temp 96.6 F 09/06/18 21:53 Pulse 99 09/06/18 21:53 Resp 16 09/06/18 21:53 BP 132/83 09/06/18 21:53 Pulse Ox 97 09/06/18 21:53 Orders, Labs, Meds: Laboratory Tests 09/06/18 09/06/18 Range/Units 21:37 21:38 Lipase 610 H (73-393) U/L Ethyl Alcohol 369 mg/dL Re-Assessment/Re-Exam: Records were obtained from [place]. An EtOH and lipase were drawn. If there is no evidence of pancreatitis the patient will be discharged. EtOH was 0.369, lipase was slightly above normal which is consistent with past levels and his level in [place] yesterday. Treatment is to avoid alcohol. Patient refuses detox Departure - Departure Time of Disposition: 22:40 Disposition: Home, Self-Care 01 Condition: Fair Clinical Impression: Alcohol intoxication Qualifiers: Complication of substance-induced condition: with unspecified complication Qualified Code(s): F10.929 - Alcohol use, unspecified with intoxication, unspecified Contusion of sacrum Qualifiers: Encounter type: initial encounter Qualified Code(s): S30.0XXA - Contusion of lower back and pelvis, initial encounter - Discharge Information Instructions: Alcohol Intoxication, [id number] Referrals: PCP,None [Primary Care Provider] - Forms: ED Department Discharge Care Plan Goals: I would strongly recommend detox and treatment to avoid alcohol in the future.
== END 2018-09-06 22:40 | disposition home or self-care (01) ==
LOC: JP.ED 21:36
DX: F10.129 Alcohol abuse with intoxication, unspecified (principal); Y90.8 Blood alcohol level of 240 mg/100 ml or more; S30.0XXA Contusion of lower back and pelvis, initial encounter; Z79.899 Other long term (current) drug therapy; X58.XXXA Exposure to other specified factors, initial encounter
CPT/HCPCS: 36415; 83690; 99284; G0480